=== PATIENT | male | born 1960 | race Caucasian/White ===

== ENCOUNTER → 2016-07-31 | Outpatient (CLI) | payer OTHER ==
[~2016-07-31] MED LIST: FISHOIL PO; INSUINJ14 SC; INSUINJ4 SQ; LIRA18IN SC; LISI-729 PO; METF500T PO; SIMV20TA2 PO
[2016-07-31 12:36] LABS: HEMATOCRIT 44.2 % (42-52)
[2016-07-31 13:01] LABS: ESTIMATED AVERAGE GLUCOSE 128 mg/dl; HA1C FLAG Normal (Normal)
[2016-07-31 13:37] LABS: ALT/SGPT 28 U/L (12-78); AST/SGOT 24 U/L (15-37); BLOOD UREA NITROGEN 11 mg/dl (7-18); BUN/CREATININE RATIO 11.9 (10-20); CARBON DIOXIDE 26 mmol/L (21-32); CHLORIDE 106 mmol/L (98-107); CHOLESTEROL 124 mg/dl (0-200); CREATININE 0.94 mg/dl (0.60-1.40); GLUCOSE 88 mg/dl (70-99); SODIUM 140 mmol/L (136-145)
[2016-07-31 13:47] LABS: ALB/GLOB RATIO 1.3 (0.9-2); ALKALINE PHOSPHATASE 69 U/L (45-117); CHOLESTEROL/HDL RATIO 3.6; HDL CHOLESTEROL 34 mg/dl; LDL CHOLESTEROL CALCULATED 70 mg/dl; PROSTATE SPECIFIC ANTIGEN 0.247 ng/ml (0.000-4.000); TRIGLYCERIDES 100 mg/dl (0-150); VERY LOW DENSITY LIPOPROT CALC 20 mg/dl
[2016-07-31 13:55] LABS: CALCIUM 9.5 mg/dl (8.5-10.1)
== END | disposition home or self-care (01) ==
LOC: C.LABBFT 08:24
PROVIDERS: ATTEND Nurse Practitioner
DX: E11.319 Type 2 diabetes mellitus with unspecified diabetic retinopathy without macular edema (principal); Z12.5 Encounter for screening for malignant neoplasm of prostate

== ENCOUNTER → 2017-01-31 | Outpatient (CLI) | payer OTHER ==
[2017-01-31 13:09] LABS: ALT/SGPT 25 U/L (12-78); AST/SGOT 17 U/L (15-37); BLOOD UREA NITROGEN 14 mg/dl (7-18); BUN/CREATININE RATIO 14.2 (10-20); CALCIUM 8.9 mg/dl (8.5-10.1); CARBON DIOXIDE 27 mmol/L (21-32); CHLORIDE 104 mmol/L (98-107); CHOLESTEROL 128 mg/dl (0-200); CREATININE 0.96 mg/dl (0.60-1.40); GLUCOSE 105 mg/dl (70-99); POTASSIUM 3.9 mmol/L (3.5-5.1); SODIUM 137 mmol/L (136-145); TRIGLYCERIDES 150 mg/dl (0-150); VERY LOW DENSITY LIPOPROT CALC 30 mg/dl
[2017-01-31 13:10] LABS: ESTIMATED AVERAGE GLUCOSE 157 mg/dl; HA1C FLAG Normal (Normal)
[2017-01-31 13:12] LABS: ALB/GLOB RATIO 1.2 (0.9-2); ALKALINE PHOSPHATASE 78 U/L (45-117); CHOLESTEROL/HDL RATIO 3.8; HDL CHOLESTEROL 34 mg/dl; LDL CHOLESTEROL CALCULATED 64 mg/dl
== END | disposition home or self-care (01) ==
LOC: C.LABBFT 07:41
PROVIDERS: ATTEND Nurse Practitioner
DX: E55.9 Vitamin D deficiency, unspecified (principal); E11.49 Type 2 diabetes mellitus with other diabetic neurological complication

== ENCOUNTER → 2017-08-07 | Outpatient (CLI) | payer OTHER ==
[2017-08-07 12:42] LABS: ALBUMIN 3.8 gm/dl (3.4-5.0); ALT/SGPT 27 U/L (12-78); BLOOD UREA NITROGEN 13 mg/dl (7-18); CARBON DIOXIDE 24 mmol/L (21-32); CHOLESTEROL 132 mg/dl (0-200); GLUCOSE 91 mg/dl (70-99); SODIUM 137 mmol/L (136-145)
[2017-08-07 12:44] LABS: HEMOGLOBIN A1C 7.5 % (4.5-5.6)
[2017-08-07 12:47] LABS: ALKALINE PHOSPHATASE 78 U/L (45-117); AST/SGOT 17 U/L (15-37); LDL CHOLESTEROL CALCULATED 75 mg/dl; TOTAL PROTEIN 7.3 gm/dl (6.4-8.2)
== END | disposition home or self-care (01) ==
LOC: C.LABBFT 07:32
PROVIDERS: ATTEND Nurse Practitioner
DX: E11.49 Type 2 diabetes mellitus with other diabetic neurological complication (principal); Z12.5 Encounter for screening for malignant neoplasm of prostate; E78.5 Hyperlipidemia, unspecified

== ENCOUNTER 2022-11-18 13:14 | Inpatient (IN) ==
--- NOTE | 2022-11-18 14:37 | Emergency Department Note ---
Impression & Plan Osteomyelitis, Gangrenous toe, Sepsis ED Provider Note NAME: YOLIS GALINDO AGE: 62 SEX: M ARRIVES VIA: Walk-In INFORMANT: Patient ED PROVIDER(S): Mj Josue MD CHIEF COMPLAINT: Diabetic toe ulcer, pain, discoloration and swelling. PLAN: Disposition: Admit MEDICAL DECISION MAKING: The patient is a 62-year-old gentleman with a past medical history of hy pertension, hyperlipidemia, uncontrolled type 2 diabetes on insulin, diabetic retinopathy, lumbar spinal stenosis, history of melanoma presents emergency department via walk-in accompanied by his for evaluation of discoloration of his left great toe which he describes turning "purple" today in the setting of having a chronically nonhealing wound/ulcer on the plantar aspect of his toe that has been present for a year or so but feels it only recently worsened this past week. He denies fevers, cough, congestion, GI or symptoms. Patient reports his blood sugars have been in the 150-170 range. Of note, the patient did arrive to emergency department during time of high volume, acuity and prolonged emergency department waiting times. Critical pathways initiated from triage. The patient is afebrile with HR in the 100s and VS otherwise stable. On my evaluation the patient has a cyanotic/dusky cool great toe with tunneling ulcer on the plantar aspect which cultured. There is erythema extending from the base of the great toe proximally to the midfoot on the medial aspect. There is no overt crepitus on exam. Dopplerable DP pulses present. I did explain the severity of the patient's exam to the patient and his at the bedside. Case was reviewed with podiatry, Dr. Ramirez who is able to review images sent of the patient's foot. He agrees with plan for admission for IV a ntibiotics and he will see the patient upon arriving to [facility]. If imaging suggests osteomyelitis likely will take to the OR. WBC 15.4K with neutrophil predominance though no left shift. H/H and platelets within normal limits. ESR is elevated 97 and CRP of 34. Chemistry without metabolic acidosis. Glucose 374. Total bilirubin 1.3, similar to prior. LFTs otherwise unremarkable. Procalcitonin is not elevated. Initial lactic acid 2.1 however clear to 1.2 following IV fluid hydration. Plain films of the left foot demonstrate soft tissue swelling with gas seen suspected to be related to adjacent wound/ulcer though possibility of necrotizing infection is raised. Erosion of the plantar aspect of the distal phalanx of the left first toe is consistent with osteomyelitis and better characterized on CT imaging. CT demonstrates osteonecrosis of the first proximal and distal phalanges with distal phalangeal osteomyelitis. The plantar ulcer of the great toe is noted with cellulitis and deep tissue air which again may be related to communication with the wound versus necrotizing infection. Acute nondisplaced pathologic fracture of the first distal phalanx is noted. Patient was treated with initial empiric IV antibiotics with Zosyn and daptomycin and IVF hydration with NSS. Case was discussed with OSMANY Valverde PAC, with Dr. Perez [facility] hospitalist who will evaluate the patient for admission. Further management per admitting team in coordination with podiatry, Dr. Ramirez. Triage Nursing notes reviewed and agree them. Prior/outside medical records reviewed Vital Signs: reviewed Differential diagnosis: Cellulitis, abscess, MRSA infection, DVT, necrotizing fasciitis, dermatitis, drug eruption, allergic reaction, as well as other pathologies. ER treatment provided: See below. Diagnostics interpreted by me: Cardiac Monitoring: An order for continuous cardiac monitoring was placed and demonstrated sinus tachycardia, 103 bpm, no ectopy. Laboratory studies: See below Imaging studies: See below Consultation(s): Dr. Ramirez, Podiatry. OSMANY Valverde PAC, with Dr. Perez [facility] hospitalist. HPI: The patient is a 62-year-old gentleman with a past medical history of hypertension, hyperlipidemia, uncontrolled type 2 diabetes on insulin, diabetic retinopathy, lumbar spinal stenosis, history of melanoma presents emergency department via walk-in accompanied by his for evaluation of discoloration of his left great toe which he describes turning "purple" today in the setting of having a chronically nonhealing wound/ulcer on the plantar aspect of his toe that has been present for a year or so but feels it only recently worsened this past week. He denies fevers, cough, congestion, GI or symptoms. Patient reports his blood sugars have been in the 150-170 range. ROS: See above HPI for pertinent positives & negatives. A total of 10 systems reviewed and were otherwise negative. VITALS:See Below PHYSICAL EXAMINATION: GENERAL: Awake, alert, in no distress HENT: Normocephalic, atraumatic. Oropharynx with dry mucous membranes and otherwise unremarkable. EYES: Normal conjunctiva. Sclera non-icteric. NECK: Supple. No nuchal rigidity. FROM. No JVD. RESPIRATORY: Clear to auscultation. CARDIAC: Tachycardic rate, normal rhythm. Extremities warm and well perfused. Pulses equal. ABDOMEN: Soft, non-distended. No tenderness to palpation. No rebound or guarding. No masses. RECTAL: Deferred. MUSCULOSKELETAL: Chest examination reveals no tenderness. The back is symmetrical on inspection without obvious abnormality. There is no CVA tenderness to palpation. No joint edema. LOWER EXTREMITIES: Cyanotic/dusky cool great toe with tunneling ulcer on the plantar aspect which cultured. There is erythema extending from the base of the great toe proximally to the midfoot on the medial aspect. There is no overt crepitus on exam. Dopplerable DP pulses present. NEURO: Normal sensorium. No sensory or motor deficits noted. SKIN: No rash or jaundice noted. ED COURSE: Critical Care: I have personally spent greater than 55 minutes of critical care time in the direct management of this patient. This includes bedside care, interpretation of diagnostic studies, and testing, discussion with consultants, patient, and family members, and other required patient management activities. This 55 minutes is in excess of all separately billable procedures. Mj Josue MD Past Med/Surg History Medical History History of melanoma Hyperlipidemia Hypertension Uncontrolled type 2 diabetes mellitus with insulin therapy Surgical History History of colonoscopy with polypectomy History of melanoma excision Hx of vasectomy Family History Father Diabetes Mother Coronary heart disease Sister Cancer Other No family history of adverse response to anesthesia No pertinent family history Denies family history of Ovarian cancer Prostate cancer Breast cancer Colorectal cancer Social History Smoking Status: Never smoker Second Hand Exposure: No; Do You Dip or Chew Tobacco: No; Hx Alcohol Use: No Hx Substance Use: No Preferred Language: Belgian Communication Ability: Effective Hearing Ability: Normal White Spooler Required: No Beliefs That Will Affect Care: None Current Living Situation: Spouse Current Living Situation Comment: X 2 current occupational status: employed Other Information That Helps Us Care for You: No Feels Safe at Home: Yes Safety Concerns: Feels Safe At This Time Childhood Exposure to Second-Hand Smoke: No Diet: regular caffeine: Yes during the past year weight has: remained stable Dental Care, Regularly: Yes Physical Activity Frequency: 5-6 Times per Week Seatbelt Use: always Sunscreen Use: Yes Assistive Devices: None Allergies Allergies Allergy/AdvReac Type Severity Reaction Status Date / Time No Known Allergies Allergy Mild Verified 11/18/22 16:28 Home Meds Home Medications Medication Instructions Recorded Confirmed cholecalciferol (vitamin D3) 50 4,000 unit PO HS 09/03/18 11/18/22 mcg (2,000 unit) capsule (Vitamin D3) cyanocobalamin (vitamin B-12) 2,000 mcg PO QAM 09/03/18 11/18/22 2,000 mcg tablet,extended release (Vitamin B-12 ER) krill 1,000 mg-omega-3 170 mg-dha 1 cap PO QAM 09/03/18 11/18/22 50 mg-epa 80 nw-deuoyb-pubse capsule (krill oil) blood sugar diagnostic (OneTouch #10 ea 05/24/19 04/11/21 Ultra Blue Test Strip) lancets (OneTouch UltraSoft #50 ea 05/24/19 04/11/21 Lancets) aspirin 81 mg tablet,delayed 81 mg PO QAM 12/08/20 11/18/22 release Previous Rx's Medication Instructions Recorded dulaglutide 1.5 mg/0.5 mL 1.5 mg (0.5 mL) subcut .COMPLEX 10/09/21 subcutaneous pen injector #12 syringes (Trulicity) insulin aspart U-100 100 unit/mL 20 unit (0.2 mL) subcut .COMPLEX 10/09/21 (3 mL) subcutaneous pen (Novolog #18 mL FlexPen U-100 Insulin aspart) insulin degludec 200 unit/mL (3 70 unit (0.35 mL) subcut HS #32 10/09/21 mL) subcutaneous pen (Tresiba SYRINGES FlexTouch U-200 insulin) metformin 500 mg tablet,extended 1,000 mg PO BID #360 tabs 06/21/22 release 24 hr pen needle, diabetic 32 gauge x #100 ea 10/09/21 5/32" (BD Ultra-Fine Clau Pen Needle) rosuvastatin 20 mg tablet 20 mg PO HS #90 tabs 10/09/21 Results & Data (ED) Vital Signs Vital Signs - 24 hr 11/18/22 13:22 11/18/22 14:50 11/18/22 14:52 Temperature 36.8 C Temperature Source Temporal Artery Scan Pulse Rate 103 H 101 H Pulse Rate [Apical] 107 H Pulse Rhythm [Apical] Pulse Strength [Apical] Respiratory Rate 18 20 Respiratory Effort / Characteristics Non-Labored Non-Labored Spontaneous Respiratory Depth Normal Normal Respiratory Pattern Regular Blood Pressure 159/89 H Blood Pressure [Left Arm] 204/102 H Blood Pressure Mean 112 Blood Pressure Mean [Left Arm] 136 Blood Pressure Position [Left Arm] Pulse Oximetry 98 97 Oxygen Delivery Method Room Air Room Air Sepsis Recent Fever Within 48 Hours No Sepsis New/Unexplained Change in Mental Status N/A Sepsis Action Taken by Nursing No Action Required 11/18/22 14:56 11/18/22 15:13 11/18/22 17:00 Temperature 36.8 C Temperature Source Oral Pulse Rate Pulse Rate [Apical] 111 H Pulse Rhythm [Apical] Regular Pulse Strength [Apical] Normal Respiratory Rate 18 Respiratory Effort / Characteristics Non-Labored Respiratory Depth Normal Respiratory Pattern Regular Blood Pressure Blood Pressure [Left Arm] 173/94 H Blood Pressure Mean Blood Pressure Mean [Left Arm] 120 Blood Pressure Position [Left Arm] Lying Pulse Oximetry 97 99 Oxygen Delivery Method Room Air Room Air Sepsis Recent Fever Within 48 Hours Sepsis New/Unexplained Change in Mental Status Sepsis Action Taken by Nursing 11/18/22 17:21 11/18/22 17:26 Temperature 36.9 C 38.2 C H Temperature Source Oral Pulse Rate Pulse Rate [Apical] 114 H Pulse Rhythm [Apical] Pulse Strength [Apical] Respiratory Rate 22 Respiratory Effort / Characteristics Non-Labored Spontaneous Respiratory Depth Normal Respiratory Pattern Regular Blood Pressure Blood Pressure [Left Arm] 159/98 H Blood Pressure Mean Blood Pressure Mean [Left Arm] 118 Blood Pressure Position [Left Arm] Semi-fowlers Pulse Oximetry 98 Oxygen Delivery Method Room Air Sepsis Recent Fever Within 48 Hours Sepsis New/Unexplained Change in Mental Status Sepsis Action Taken by Nursing Laboratory Data 11/18/22 14:40 11/18/22 14:40 Lab Results 0711/18/22 11/18/22 Range/Units 14:40 14:40 14:40 WBC 15.46 H (4.8-10.8) K/ul RBC 5.50 (4.70-6.10) M/uL Hgb 15.6 (14.0-18.0) g/dl Hct 45.9 (42.0-52.0) % MCV 83.5 (80.0-100.0) fL MCH 28.4 (25.0-34.0) pg MCHC 34.0 (32.0-36.0) g/dL RDW Std Deviation 35.7 L (36.4-46.3) fL RDW Coeff of Stephanie 11.8 (11.5-14.5) % Plt Count 313 (130-400) K/uL MPV 10.7 (9.4-12.4) fL Immature Gran % (Auto) 0.6 % Neut % (Auto) 86.1 % Lymph % (Auto) 6.7 % Greene % (Auto) 5.8 % Eos % (Auto) 0.3 % Baso % (Auto) 0.5 % Neut # (Auto) 13.32 H (1.40-6.50) K/uL Lymph # (Auto) 1.03 L (1.2-3.4) K/uL Greene # (Auto) 0.90 H (0.11-0.59) K/uL Eos # (Auto) 0.05 (0-0.50) K/uL Baso # (Auto) 0.07 (0-0.2) K/uL Immature Gran # (Auto) 0.09 (0.01-0.20) K/uL ESR (0-20) mm/hr PT 11.1 (9.0-12.0) Seconds INR 1.0 (0.9-1.1) APTT 30.5 (21.0-31.0) Seconds PTT Ratio 1.1 Sodium (136-145) mmol/L Potassium (3.5-5.1) mmol/L Chloride (98-107) mmol/L Carbon Dioxide (21-32) mmol/L Anion Gap (3-11) BUN (6-23) mg/dl Creatinine (0.6-1.4) mg/dl Est Cr Clr Drug Dosing ml/min Est GFR ( Amer) ml/min Est GFR (Non-Af Amer) ml/min BUN/Creatinine Ratio (10-20) Glucose (70-99(Fasting)) mg/dl POC Glucose (70-99) mg/dl Lactate 2.1 H* (0.4-2.0) mmol/L Calcium (8.6-10.3) mg/dl Magnesium (1.7-2.4) mg/dl Total Bilirubin (0.2-1.0) mg/dl AST (13-39) U/L ALT (7-52) U/L Alkaline Phosphatase (34-104) U/L Total Creatine Kinase (30-223) U/L C-Reactive Protein (0-0.5) mg/dl Total Protein (6.0-8.3) gm/dl Albumin (3.4-5.0) gm/dl Globulin (2.5-4.0) gm/dl Albumin/Globulin Ratio (0.9-2) Procalcitonin (0-0.5) ng/ml Urine Color Urine Appearance (Clear) Urine pH (4.5-7.5) Ur Specific [place] (1.000-1.030) Urine Protein (Negative) Urine Glucose (UA) (Negative) Urine Ketones (Negative) Urine Blood (Negative) Urine Nitrite (Negative) Urine Bilirubin (Negative) Urine Urobilinogen (Negative) Ur Leukocyte Esterase (Negative) 11/18/22 11/18/22 11/18/22 Range/Units 14:40 14:40 14:40 WBC (4.8-10.8) K/ul RBC (4.70-6.10) M/uL Hgb (14.0-18.0) g/dl Hct (42.0-52.0) % MCV (80.0-100.0) fL MCH (25.0-34.0) pg MCHC (32.0-36.0) g/dL RDW Std Deviation (36.4-46.3) fL RDW Coeff of Stephanie (11.5-14.5) % Plt Count (130-400) K/uL MPV (9.4-12.4) fL Immature Gran % (Auto) % Neut % (Auto) % Lymph % (Auto) % Greene % (Auto) % Eos % (Auto) % Baso % (Auto) % Neut # (Auto) (1.40-6.50) K/uL Lymph # (Auto) (1.2-3.4) K/uL Greene # (Auto) (0.11-0.59) K/uL Eos # (Auto) (0-0.50) K/uL Baso # (Auto) (0-0.2) K/uL Immature Gran # (Auto) (0.01-0.20) K/uL ESR 97 H (0-20) mm/hr PT (9.0-12.0) Seconds INR (0.9-1.1) APTT (21.0-31.0) Seconds PTT Ratio Sodium 131 L (136-145) mmol/L Potassium 4.1 (3.5-5.1) mmol/L Chloride 94 L (98-107) mmol/L Carbon Dioxide 27 (21-32) mmol/L Anion Gap 10 (3-11) BUN 13 (6-23) mg/dl Creatinine 0.66 (0.6-1.4) mg/dl Est Cr Clr Drug Dosing 122.0 ml/min Est GFR ( Amer) 119.3 ml/min Est GFR (Non-Af Amer) 102.9 ml/min BUN/Creatinine Ratio 19.7 (10-20) Glucose 374 H* (70-99(Fasting)) mg/dl POC Glucose (70-99) mg/dl Lactate (0.4-2.0) mmol/L Calcium 9.9 (8.6-10.3) mg/dl Magnesium 2.1 (1.7-2.4) mg/dl Total Bilirubin 1.3 H (0.2-1.0) mg/dl AST 12 L (13-39) U/L ALT 12 (7-52) U/L Alkaline Phosphatase 124 H (34-104) U/L Total Creatine Kinase 195 (30-223) U/L C-Reactive Protein 34.37 H (0-0.5) mg/dl Total Protein 8.3 (6.0-8.3) gm/dl Albumin 4.2 (3.4-5.0) gm/dl Globulin 4.1 H (2.5-4.0) gm/dl Albumin/Globulin Ratio 1.0 (0.9-2) Procalcitonin 0.48 (0-0.5) ng/ml Urine Color Urine Appearance (Clear) Urine pH (4.5-7.5) Ur Specific [place] (1.000-1.030) Urine Protein (Negative) Urine Glucose (UA) (Negative) Urine Ketones (Negative) Urine Blood (Negative) Urine Nitrite (Negative) Urine Bilirubin (Negative) Urine Urobilinogen (Negative) Ur Leukocyte Esterase (Negative) 11/18/22 11/18/22 11/18/22 Range/Units 14:55 16:31 17:02 WBC (4.8-10.8) K/ul RBC (4.70-6.10) M/uL Hgb (14.0-18.0) g/dl Hct (42.0-52.0) % MCV (80.0-100.0) fL MCH (25.0-34.0) pg MCHC (32.0-36.0) g/dL RDW Std Deviation (36.4-46.3) fL RDW Coeff of Stephanie (11.5-14.5) % Plt Count (130-400) K/uL MPV (9.4-12.4) fL Immature Gran % (Auto) % Neut % (Auto) % Lymph % (Auto) % Greene % (Auto) % Eos % (Auto) % Baso % (Auto) % Neut # (Auto) (1.40-6.50) K/uL Lymph # (Auto) (1.2-3.4) K/uL Greene # (Auto) (0.11-0.59) K/uL Eos # (Auto) (0-0.50) K/uL Baso # (Auto) (0-0.2) K/uL Immature Gran # (Auto) (0.01-0.20) K/uL ESR (0-20) mm/hr PT (9.0-12.0) Seconds INR (0.9-1.1) APTT (21.0-31.0) Seconds PTT Ratio Sodium (136-145) mmol/L Potassium (3.5-5.1) mmol/L Chloride (98-107) mmol/L Carbon Dioxide (21-32) mmol/L Anion Gap (3-11) BUN (6-23) mg/dl Creatinine (0.6-1.4) mg/dl Est Cr Clr Drug Dosing ml/min Est GFR ( Amer) ml/min Est GFR (Non-Af Amer) ml/min BUN/Creatinine Ratio (10-20) Glucose (70-99(Fasting)) mg/dl POC Glucose 318 H* (70-99) mg/dl Lactate 1.2 (0.4-2.0) mmol/L Calcium (8.6-10.3) mg/dl Magnesium (1.7-2.4) mg/dl Total Bilirubin (0.2-1.0) mg/dl AST (13-39) U/L ALT (7-52) U/L Alkaline Phosphatase (34-104) U/L Total Creatine Kinase (30-223) U/L C-Reactive Protein (0-0.5) mg/dl Total Protein (6.0-8.3) gm/dl Albumin (3.4-5.0) gm/dl Globulin (2.5-4.0) gm/dl Albumin/Globulin Ratio (0.9-2) Procalcitonin (0-0.5) ng/ml Urine Color Yellow Urine Appearance Clear (Clear) Urine pH 6.0 (4.5-7.5) Ur Specific [place] 1.044 H (1.000-1.030) Urine Protein Negative (Negative) Urine Glucose (UA) 3+ H (Negative) Urine Ketones Trace H (Negative) Urine Blood Negative (Negative) Urine Nitrite Negative (Negative) Urine Bilirubin Negative (Negative) Urine Urobilinogen Negative (Negative) Ur Leukocyte Esterase Negative (Negative) Administered Medications Aspirin (Aspirin 81 Mg Ectab) 81 mg PO HS AUDIE Stop: 12/18/22 20:59 Last Admin: 11/18/22 21:06 Dose: 81 mg Documented By: MANJIT Daptomycin 450 mg/ Syringe 9 mls @ 4.5 mls/min IV Q24H [facility]; Protocol Stop: 11/20/22 15:14 Last Admin: 11/18/22 15:52 Dose: 4.5 mls/min Documented By: AP Piperacillin Sod/Tazobactam (Sod 4.5 gm/ Dextrose) 120 mls @ 30 mls/hr IV Q8H [facility]; Protocol Stop: 12/30/22 19:59 Last Infusion: 11/19/22 00:19 Dose: 0 mls/hr Documented By: Admin: 11/18/22 20:03 Dose: 30 mls/hr Documented By: MANJIT Sodium Chloride (Nss 1000ml) 1,000 mls @ 100 mls/hr IV .Q10H AUDIE Stop: 11/19/22 15:24 Last Admin: 11/18/22 19:45 Dose: 100 mls/hr Documented By: MANJIT Insulin Aspart (Insulin Aspart Per Unit Charge) 0 units SC Q4H AUDIE Stop: 12/18/22 19:59 Last Admin: 11/19/22 01:39 Dose: Not Given Documented By: MANJIT Co-signed By: MARGARITA Admin: 11/18/22 21:04 Dose: 13 units Documented By: MANJIT Co-signed By: MARGARITA Insulin Glargine (Lantus Per Unit Charge) 30 units SQ BID [facility] Stop: 12/18/22 20:59 Last Admin: 11/18/22 21:05 Dose: 30 units Documented By: MANJIT Co-signed By: MARGARITA Discontinued Medications Bupivacaine HCl (Bupivacaine 0.5 % 5 Mg/1 Ml Mpf 30ml Vial) Confirm Administered Dose 30 ml .ROUTE .STK-MED ONE Stop: 11/18/22 17:42 Last Admin: 11/18/22 18:45 Dose: 10 ml Documented By: [id number] Sodium Chloride (Nss 1000ml) 1,000 mls @ 999 mls/hr IV .Q1H1M ONE Stop: 11/18/22 16:15 Last Infusion: 11/18/22 16:56 Dose: 0 mls/hr Documented By: Admin: 11/18/22 15:52 Dose: 999 mls/hr Documented By: SUSAN Piperacillin Sod/Tazobactam (Sod 4.5 gm/ Dextrose) 120 mls @ 200 mls/hr IV NOW ONE; Protocol Stop: 11/18/22 15:50 Last Infusion: 11/18/22 16:36 Dose: 0 mls/hr Documented By: Admin: 11/18/22 15:52 Dose: 200 mls/hr Documented By: SUSAN Insulin Aspart (Insulin Aspart Per Unit Charge) 0 units SC ACHS AUDIE Stop: 12/18/22 19:24 Last Admin: 11/18/22 21:05 Dose: Not Given Documented By: MANJIT Co-signed By: MARGARITA Insulin Human Regular (Novolin-R Insulin Per Unit Charge) 10 units IV NOW STA Stop: 11/18/22 16:04 Last Admin: 11/18/22 16:53 Dose: 10 units Documented By: SUSAN Co-signed By: JOSR Ioversol (Optiray 320 100ml) 92 ml IV ONCE ONE Stop: 11/18/22 15:43 Last Admin: 11/18/22 15:43 Dose: 92 ml Documented By: FIDELIA Imaging Data Radiologist's Impression: Foot X-Ray 11/18/22 13:27 XR foot LT min 3V routine CLINICAL HISTORY: Left foot infection. COMPARISON: None FINDINGS: Alignment of the left foot is anatomic. Tarsometatarsal joints are intact. There is left first toe soft tissue swelling. Note is made of multifocal soft tissue gas within the left first toe which extends to the level of the midshaft of the first metatarsal. There is equivocal erosion of the plantar aspect of the distal phalanx of the left first toe. Lateral view demonstrates a skin defect consistent with wound along the plantar aspect of the interphalangeal joint of the left first toe. There are no acute fracture. IMPRESSION: 1. Left first toe wound with soft tissue swelling. Although the gas may be related to the wound, the findings raise the possibility of a gas-forming infectious process such as necrotizing fasciitis. 2. Possible erosion of the plantar aspect of the distal phalanx of the left first toe which raises the possibility of osteomyelitis. This can be assessed on CT which has been ordered. ACT 112: Negative or not required by law. Electronically signed by: Heron Phoenix M.D. 11/18/2022 3:[address] 11/18/22 15:15 CT foot LT w con HISTORY: 62 years-old Male gangrenous left great toe, DM ulcer chronic left foot pain with diabetic foot ulcer COMPARISON: Frontal radiographs of same day TECHNIQUE: Multiple axial CT images of the left foot were obtained following the intravenous administration of contrast. A dose lowering technique was used consistent with the principals of ARMANDO. FINDINGS: Air is present within the medullary space of the first distal phalanx and head of the first proximal phalanx. There is a acute pathologic intra-articular fracturing within the base of the first distal phalanx with subtle plantar cor tical erosions (best seen on the sagittal images). Moderate subcutaneous edema with deep tissue air of the first digit. 1.6 cm plantar ulcer of the great toe. Mild osteoarthritis. Midfoot alignment is anatomic. No additional acute fracture, dislocation or osseous erosion identified. Subcentimeter chronic appearing osteochondral defect of the medial talar dome. No drainable abscess. Arterial calcifications. [id number] diffuse subcutaneous edema. IMPRESSION: 1. Osteonecrosis of the first proximal and distal phalanges with distal phalangeal osteomyelitis. 2. Plantar ulcer of the great toe with cellulitis. Associated deep tissue air may be secondary to direct communication from the wound versus necrotizing fasciitis. 3. Acute nondisplaced pathologic fracture of the first distal phalanx. ACT 112: Negative or not required by law. The above report was generated using voice recognition software. It may contain grammatical, syntax or spelling errors. Electronically signed by: Ángel Payne M.D. 11/18/2022 4:07 PM Venous Doppler Study 11/18/22 15:50 Exam(s): US VENOUS LEFT LOWER EXTREMITY EXAM: US Duplex Left Lower Extremity Veins CLINICAL HISTORY: Reason for exam: r/o dvt, +calf pain. TECHNIQUE: Real-time duplex ultrasound scan of the left lower extremity veins integrating B-mode two-dimensional vascular structure, Doppler spectral analysis, color flow Doppler imaging and compression. COMPARISON: No relevant prior studies available. FINDINGS: Veins: No DVT in the visualized veins, including the common femoral, superficial femoral, proximal deep femoral and popliteal veins. The veins demonstrate normal color flow, are normally compressible, with normal phasic flow and/or augmentation response. Soft tissues: No popliteal cyst. Left inguinal lymph node, 3.9 X 1.6 X 3.5 cm, not pathologically enlarged by size criteria, and maintains a normal fatty hilum. May be reactive. IMPRESSION: 1. No DVT. 2. Left inguinal lymph node, nonspecific, likely reactive. Electronically signed by: Pema Ferrell M.D. 11/19/22 02:11 AM Duplex Scan Lower Extremity Artery 11/18/22 16:21 Exam(s): US ARTERIAL LEFT LOWER EXTREMITY EXAM: US Duplex Left Lower Extremity Arteries CLINICAL HISTORY: Reason for exam: acute gangrenous toe, concerns thrombus. TECHNIQUE: Real-time duplex ultrasound scan of the left lower extremity arteries integrating B-mode two-dimensional vascular structure, Doppler spectral analysis and color flow Doppler imaging. COMPARISON: No relevant prior studies available. FINDINGS: Left common femoral artery: Mild atherosclerosis, with possible ulcerative plaque. No occlusion or significant stenosis on color flow and spectral Doppler imaging. Left superficial femoral artery: No stenosis or occlusion. Left popliteal artery: Elevated velocity, 205 cm/s. Left calf/foot arteries: Intermittent occluded anterior tibial artery, with short segment flow reversal. Low velocity distally 23 cm/s. Elevated velocities distal posterior tibial artery 172 cm/s. Monophasic waveforms. Patent dorsalis pedis artery. Soft tissues: Unremarkable. IMPRESSION: 1. Abnormal exam with intermittent occluded RILEY. 2. Elevated velocities popliteal artery and [employer]. 3. 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 4. Consider CTA runoff as indicated for further evaluation. Electronically signed by: Pema Ferrell M.D. 11/19/22 02:04 AM Chest X-Ray 11/18/22 16:28 SINGLE VIEW CHEST CLINICAL HISTORY: Preoperative examination FINDINGS: An AP, portable, upright chest radiograph is compared to study dated 09/03/2018. Correlation is made with chest CT dated 10/17/2021. The cardiomediastinal silhouette is top normal for projection. The pulmonary vasculature is noncongested. Chronic interstitial thickening is similar to previous. There is mild bibasilar scarring/atelectasis. The lungs and pleural spaces are otherwise clear. No pneumothorax is seen. The skeletal structures appear osteopenic. The bony thorax is grossly intact. IMPRESSION: No active disease in the chest. ACT 112: Negative or not required by law. Electronically signed by: Nura Rothman M.D. 11/18/2022 6:33 PM Discharge Plan Visit Data Chief Complaint: Toe Injury/Pain Stated Complaint: L FOOT BIG TOE IS PURPLE ED Provider: Mj Josue Discharge Problem: Osteomyelitis, Gangrenous toe, Sepsis Patient Disposition: Admitted As Inpatient Discharge Instructions Interventions: ED Discharge Assessment Last Done: 11/18/22 17:21
[2022-11-18 15:04] LABS: Basophils # (auto) 0.07 K/uL (0-0.2); Basophils % (auto) 0.5 %; Eosinophils # (auto) 0.05 K/uL (0-0.50); Eosinophils % (auto) 0.3 %; Hematocrit (blood only) 45.9 % (42.0-52.0); Hemoglobin 15.6 g/dl (14.0-18.0); Immature Granulocytes # (auto) 0.09 K/uL (0.01-0.20); Immature Granulocytes % (auto) 0.6 %; Lymphocytes # (auto) 1.03 K/uL (1.2-3.4); Lymphocytes % (auto) 6.7 %; Mean Corpuscular Hemoglobin 28.4 pg (25.0-34.0); Mean Corpuscular Volume 83.5 fL (80.0-100.0); Mean Platelet Volume 10.7 fL (9.4-12.4); Monocytes % (auto) 5.8 %; Neutrophils # (auto) 13.32 K/uL (1.40-6.50); Neutrophils % (auto) 86.1 %; Platelet Count 313 K/uL (130-400); RDW Coefficient of Variation 11.8 % (11.5-14.5); RDW Standard Deviation 35.7 fL (36.4-46.3); White Blood Count 15.46 K/ul (4.8-10.8)
[2022-11-18] MEDS ORDERED: SODIUM CHLORIDE 0.9% 1000ML 1,000 ML IV ONE (15:15)
[2022-11-18] MEDS ORDERED: PIPERACILLIN/TAZOBACTAM 4.5 GM in DEXTROSE 5% 100 ML IV ONE (15:15)
[2022-11-18 15:30] LABS: Partial Thromboplastin Ratio 1.1; Partial Thromboplastin Time 30.5 Seconds (21.0-31.0); Prothrombin Time 11.1 Seconds (9.0-12.0)
--- NOTE | 2022-11-18 15:36 | XRay Report ---
XR foot LT min 3V routine CLINICAL HISTORY: Left foot infection. COMPARISON: None FINDINGS: Alignment of the left foot is anatomic. Tarsometatarsal joints are intact. There is left f irst toe soft tissue swelling. Note is made of multifocal soft tissue gas within the left first toe w hich extends to the level of the midshaft of the first metatarsal. There is equivocal erosion of the plantar aspect of the distal phalanx of the left first toe. Lateral view demonstrates a skin defect c onsistent with wound along the plantar aspect of the interphalangeal joint of the left first toe. The re are no acute fracture. IMPRESSION: 1. Left first toe wound with soft tissue swelling. Although the gas may be related to the wound, the findings raise the possibility of a gas-forming infectious process such as necrotizing fasciitis. 2. Possible erosion of the plantar aspect of the distal phalanx of the left first toe which raises th e possibility of osteomyelitis. This can be assessed on CT which has been ordered. ACT 112: Negative or not required by law. Electronically signed by: Heron Phoenix M.D. 11/18/2022 3:35 PM
[2022-11-18] MEDS ORDERED: OPTIRAY 320 100ml IV ONE (15:42)
--- NOTE | 2022-11-18 15:42 | History & Physical Report ---
Date of Service November 18, 2022 Assessment & Plan (1) Gangrenous toe: Plan: concerns for osteo given xray/exam w/ gangrenous LEFT first toe. WBC 15.4k, BSG 374, lactic 2.1, procal 0.48 Admit med/tele Podiatry consulted CT ordered for further eval but suspect osteo/significant elevation in CRP/ESR to 34.37 and 97 respectively * 1. Osteonecrosis of the first proximal and distal phalanges with distal phalangeal osteomyelitis. * 2. Plantar ulcer of the great toe with cellulitis. Associated deep tissue air may be secondary to direct communication from the wound versus necrotizing fasciitis. * Acute nondisplaced pathologic fracture of the first distal phalanx. Blood cultures pending Zosyn/Dapto in ER -- will continue such for coverage DM foot ulcer in uncontrolled diabetic IVF ordered Pain control/antiemetics Will keep NPO in case of surgery for today US arterial study STAT given acute nature/pain concerning for acute thrombus Also will obtain US Doppler to r/o DVT given +calf pain, but -->Deferring chemoprophylaxis until dopplers resulted Check CXR/EKG in anticipation of surgery tonight (?vs tomorrow). No CP/SOB or known hx CAD Monitor labs on repeat (2) Sepsis: Plan: Leukocytosis, tachycardia (sinus tachy on monitor) on admission with elevated lactic acid suspected due to acute gangrenous toe/osteomyelitis blood cultures/IV abx as outlined above, podiatry consulted also concerns for acute thrombosis given acute reporting of discoloration/pain and stat arterial doppler ordered as above for further eval. DVT proph pending results of study (3) Osteomyelitis: Plan: imaging supporting diagnosis, elevation in inflammatory markers. podiatry consulted as above, likely need for amputation. timing of amputation TBD by podiatry once evaluated this evening (4) Uncontrolled type 2 diabetes mellitus with insulin therapy: Plan: prior a1c 11s--> 9s, however suspect higher given BSG 374 on admission and no follow up recently Ordered regular insulin 10IV x 1 now, glargine 30u BID w/ tight sliding scale and can adjust as needed A1c pending w/ repeat labs Pharmacy consulted as well for glycemic assistance and will also consult DM educator pending repeat A1c Monitor BSGs on repeat DM diet when able to eat (5) Hypertension: Plan: significant elevation in ER but asymptomatic, IVF ordered and will reassess w/ pain control as well Added hydralazine prn as well Monitor (6) Hyperlipidemia: Plan: holding crestor on Dapto, check CK lipid panel in AM, dosing crestor eventually pending imaging/repeat lipid panel (7) Esophageal reflux: Plan: not on medication, not reporting any issues at present Elevated LFTs --> likely acute phase, no abdominal pain. Will monitor on repeat Plan DVT proph: TBD pending arterial study PT/OT consults to be placed following podiatry eval History of Present Illness Chief Complaint: gangrenous toe Primary Care Provider: LM Lopez 62yo male with PMHx significant for uncontrolled DM (prior A1c 11.8--> 9.2 but over year since seen, A1c pending), HTN, HLD, reflux, melanoma presented with acute gangrenous LEFT great toe/diabetic ulceration to plantar aspect of foot ongoing for about a year. No reported fever/chills at home. Admission for IV abx/cultures and management, need for amputation. Evaluation with at bedside, just returning from CT scan of his leg for eval osteo. They report being at [facility] last year and not realizing how hot the sand was but took their shoes off and reports patient got instant blister that has not healed since that time. Reports there has been no drainage. Sensation to light touch intact to bottom of feet despite his uncontrolled diabetes. He reports not having much in the way of pain until he got up here to the hospital and wasn't having any of the redness currently on exam. Denies any recent trauma that he is aware of. Denied having any fevers at home but does have some chills at present/requesting warm blankets. He does have gangrenous 1st toe on the left on exam with lymphangitic streaking up to mid foot. Attempted to get pulse with doppler on the left, easily palpated on the right LE. Patient/ report RN was able to obtain after much searching previously. Discussed obtaining arterial study to ensure good blood flow but acute /possible need for intervention. He also has some calf pain on exam and discussed checking US doppler to ensure no DVT. Will plan to keep NPO until eval by Dr Ramirez this evening incase of surgery tonight. FULL CODE as discussed. ER Course: WBC elevation w/ neutrophil predominance on admission. Chemistries pending -- ER added CRP, ESR. Procal 0.48 Given Zosyn/Dapto by ER provider and images sent to podiatry, Dr Ramirez and will be evaluating this evening after CT imaging for consideration amputation. Xray imaging w/ Left first toe wound with soft tissue swelling. Although the gas may be related to the wound, the findings raise the possibility of a gas-forming infectious process such as necrotizing fasciitis. Possible erosion of the plantar aspect of the distal phalanx of the left first toe which raises the possibility of osteomyelitis. CT has been ordered for further evaluation. Blood cultures pending, CRP, ESR Lactic 2.1--> repeat to be collected after IVF. Allergies Allergy/AdvReac Type Severity Reaction Status Date / Time No Known Allergies Allergy Mild Verified 11/18/22 16:28 Home Medications Medication Instructions Recorded Confirmed Type cholecalciferol (vitamin D3) 50 4,000 unit PO HS 09/03/18 11/18/22 History mcg (2,000 unit) capsule (Vitamin D3) cyanocobalamin (vitamin B-12) 2,000 mcg PO QAM 09/03/18 11/18/22 History 2,000 mcg tablet,extended release (Vitamin B-12 ER) krill 1,000 mg-omega-3 170 mg-dha 1 cap PO QAM 09/03/18 11/18/22 History 50 mg-epa 80 [id number]-[id number] capsule (krill oil) blood sugar diagnostic (OneTouch #10 ea 05/24/19 04/11/21 History Ultra Blue Test Strip) lancets (OneTouch UltraSoft #50 ea 05/24/19 04/11/21 History Lancets) aspirin 81 mg tablet,delayed 81 mg PO QAM 12/08/20 11/18/22 History release dulaglutide 1.5 mg/0.5 mL 1.5 mg (0.5 mL) subcut .COMPLEX 10/09/21 11/18/22 Rx subcutaneous pen injector #12 syringes (Trulicity) insulin aspart U-100 100 unit/mL 20 unit (0.2 mL) subcut .COMPLEX 10/09/21 11/18/22 Rx (3 mL) subcutaneous pen (Novolog #18 mL FlexPen U-100 Insulin aspart) insulin degludec 200 unit/mL (3 70 unit (0.35 mL) subcut HS #32 10/09/21 11/18/22 Rx mL) subcutaneous pen (Tresiba SYRINGES FlexTouch U-200 insulin) metformin 500 mg tablet,extended 1,000 mg PO BID #360 tabs 10/09/21 11/18/22 Rx release 24 hr pen needle, diabetic 32 gauge x #100 ea 10/09/21 10/09/21 Rx 32" (BD Ultra-Fine Clau Pen Needle) rosuvastatin 20 mg tablet 20 mg PO HS #90 tabs 10/09/21 11/18/22 Rx Past Med/Surg History Medical History History of melanoma Hyperlipidemia Hypertension Uncontrolled type 2 diabetes mellitus with insulin therapy Surgical History History of colonoscopy with polypectomy History of melanoma excision Hx of vasectomy Family History Father Diabetes Mother Coronary heart disease Sister Cancer Other No family history of adverse response to anesthesia No pertinent family history Denies family history of Ovarian cancer Prostate cancer Breast cancer Colorectal cancer Social History Smoking Status: Never smoker Second Hand Exposure: No; Do You Dip or Chew Tobacco: No; Hx Alcohol Use: No Hx Substance Use: No Preferred Language: Bermudian Communication Ability: Effective Hearing Ability: Normal Assistant 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: No Beliefs That Will Affect Care: None Current Living Situation: Spouse Current Living Situation Comment: X 2 current occupational status: employed Other Information That Helps Us Care for You: No Feels Safe at Home: Yes Safety Concerns: Feels Safe At This Time Childhood Exposure to Second-Hand Smoke: No Diet: regular caffeine: Yes during the past year weight has: remained stable Dental Care, Regularly: Yes Physical Activity Frequency: 5-6 Times per Week Seatbelt Use: always Sunscreen Use: Yes Assistive Devices: None Review of Systems Review of Systems: All systems reviewed & are unremarkable except as noted in HPI & below Physical Exam Physical Exam: General: chronically ill appearing male sitting up in bed, requesting warm blankets, NAD getting back to bed but minimally uncomfortable appearing walking from wheelchair to be witnessed HEENT: head normocephalic, atraumatic, poor dentition, mm slightly dry, trachea midline Resp: cta, no w/c/r, on room air CV: slightly tachycardic, regular rhythm, no significant m/r/g, +edema on the LLE, +calf tenderness on the LLE, +abnormal pulses on the left, wnl on the RIGHT, obtained w/ doppler) GI: +BS, soft/NT : no haro Psych: alert/oriented to person/place/time, cooperative with examination Neuro/MSK/Skin: no focal deficits/no slurred speech, CN intact grossly, following commands, strength equal throughout left leg w/ increased edema compared to the right, +calf tenderness gangrenous appearance to the toe with surrounding erythema with lymphangitic streaking to mid foot on the left ~1.5 ulceration to plantar aspect LEFT HALLUX, no active drainage, sensation to touch intact, able to wiggle toes Results & Data Results & Data Vital Signs (Past 12 Hours) Vital Signs Temp Pulse Pulse Resp BP BP Pulse Ox 11/18/22 15:13 36.8 C 11/18/22 14:56 97 11/18/22 14:52 107 H 20 204/102 H 97 11/18/22 14:50 101 H 11/18/22 13:22 36.8 C 103 H 18 159/89 H 98 O2 Del Method 11/18/22 15:13 11/18/22 14:56 Room Air 11/18/22 14:52 Room Air 11/18/22 14:50 11/18/22 13:22 Room Air Laboratory Results 11/18/22 11/18/22 11/18/22 Range/Units 14:55 14:40 14:40 WBC (4.8-10.8) K/ul RBC (4.70-6.10) M/uL Hgb (14.0-18.0) g/dl Hct (42.0-52.0) % MCV (80.0-100.0) fL MCH (25.0-34.0) pg MCHC (32.0-36.0) g/dL RDW Std Deviation (36.4-46.3) fL RDW Coeff of Stephanie (11.5-14.5) % Plt Count (130-400) K/uL MPV (9.4-12.4) fL Immature Gran % (Auto) % Neut % (Auto) % Lymph % (Auto) % [place] % (Auto) % Eos % (Auto) % Baso % (Auto) % Neut # (Auto) (1.40-6.50) K/uL Lymph # (Auto) (1.2-3.4) K/uL [place] # (Auto) (0.11-0.59) K/uL Eos # (Auto) (0-0.50) K/uL Baso # (Auto) (0-0.2) K/uL Immature Gran # (Auto) (0.01-0.20) K/uL ESR 97 H (0-20) mm/hr PT (9.0-12.0) Seconds INR (0.9-1.1) APTT (21.0-31.0) Seconds PTT Ratio Sodium (136-145) mmol/L Potassium (3.5-5.1) mmol/L Chloride (98-107) mmol/L Carbon Dioxide (21-32) mmol/L Anion Gap (3-11) BUN (6-23) mg/dl Creatinine (0.6-1.4) mg/dl Est Cr Clr Drug Dosing ml/min Est GFR ( Amer) ml/min Est GFR (Non-Af Amer) ml/min BUN/Creatinine Ratio (10-20) Glucose (70-99(Fasting)) mg/dl Estimat Average Glucose Pending Hemoglobin A1c Pending Lactate (0.4-2.0) mmol/L Calcium (8.6-10.3) mg/dl Magnesium (1.7-2.4) mg/dl Total Bilirubin (0.2-1.0) mg/dl AST (13-39) U/L ALT (7-52) U/L Alkaline Phosphatase (34-104) U/L C-Reactive Protein Total Protein (6.0-8.3) gm/dl Albumin (3.4-5.0) gm/dl Globulin (2.5-4.0) gm/dl Albumin/Globulin Ratio (0.9-2) Procalcitonin (0-0.5) ng/ml Urine Color Yellow Urine Appearance Clear (Clear) Urine pH 6.0 (4.5-7.5) Ur Specific [place] 1.044 H (1.000-1.030) Urine Protein Negative (Negative) Urine Glucose (UA) 3+ H (Negative) Urine Ketones Trace H (Negative) Urine Blood Negative (Negative) Urine Nitrite Negative (Negative) Urine Bilirubin Negative (Negative) Urine Urobilinogen Negative (Negative) Ur Leukocyte Esterase Negative (Negative) 11/18/22 11/18/22 11/18/22 Range/Units 14:40 14:40 14:40 WBC (4.8-10.8) K/ul RBC (4.70-6.10) M/uL Hgb (14.0-18.0) g/dl Hct (42.0-52.0) % MCV (80.0-100.0) fL MCH (25.0-34.0) pg MCHC (32.0-36.0) g/dL RDW Std Deviation (36.4-46.3) fL RDW Coeff of Stephanie (11.5-14.5) % Plt Count (130-400) K/uL MPV (9.4-12.4) fL Immature Gran % (Auto) % Neut % (Auto) % Lymph % (Auto) % [place] % (Auto) % Eos % (Auto) % Baso % (Auto) % Neut # (Auto) (1.40-6.50) K/uL Lymph # (Auto) (1.2-3.4) K/uL [place] # (Auto) (0.11-0.59) K/uL Eos # (Auto) (0-0.50) K/uL Baso # (Auto) (0-0.2) K/uL Immature Gran # (Auto) (0.01-0.20) K/uL ESR (0-20) mm/hr PT 11.1 (9.0-12.0) Seconds INR 1.0 (0.9-1.1) APTT 30.5 (21.0-31.0) Seconds PTT Ratio 1.1 Sodium 131 L (136-145) mmol/L Potassium 4.1 (3.5-5.1) mmol/L Chloride 94 L (98-107) mmol/L Carbon Dioxide 27 (21-32) mmol/L Anion Gap 10 (3-11) BUN 13 (6-23) mg/dl Creatinine 0.66 (0.6-1.4) mg/dl Est Cr Clr Drug Dosing 122.0 ml/min Est GFR ( Amer) 119.3 ml/min Est GFR (Non-Af Amer) 102.9 ml/min BUN/Creatinine Ratio 19.7 (10-20) Glucose 374 H* (70-99(Fasting)) mg/dl Estimat Average Glucose Hemoglobin A1c Lactate (0.4-2.0) mmol/L Calcium 9.9 (8.6-10.3) mg/dl Magnesium 2.1 (1.7-2.4) mg/dl Total Bilirubin 1.3 H (0.2-1.0) mg/dl AST 12 L (13-39) U/L ALT 12 (7-52) U/L Alkaline Phosphatase 124 H (34-104) U/L C-Reactive Protein Pending Total Protein 8.3 (6.0-8.3) gm/dl Albumin 4.2 (3.4-5.0) gm/dl Globulin 4.1 H (2.5-4.0) gm/dl Albumin/Globulin Ratio 1.0 (0.9-2) Procalcitonin 0.48 (0-0.5) ng/ml Urine Color Urine Appearance (Clear) Urine pH (4.5-7.5) Ur Specific [place] (1.000-1.030) Urine Protein (Negative) Urine Glucose (UA) (Negative) Urine Ketones (Negative) Urine Blood (Negative) Urine Nitrite (Negative) Urine Bilirubin (Negative) Urine Urobilinogen (Negative) Ur Leukocyte Esterase (Negative) 11/18/22 11/18/22 Range/Units 14:40 14:40 WBC 15.46 H (4.8-10.8) K/ul RBC 5.50 (4.70-6.10) M/uL Hgb 15.6 (14.0-18.0) g/dl Hct 45.9 (42.0-52.0) % MCV 83.5 (80.0-100.0) fL MCH 28.4 (25.0-34.0) pg MCHC 34.0 (32.0-36.0) g/dL RDW Std Deviation 35.7 L (36.4-46.3) fL RDW Coeff of Stephanie 11.8 (11.5-14.5) % Plt Count 313 (130-400) K/uL MPV 10.7 (9.4-12.4) fL Immature Gran % (Auto) 0.6 % Neut % (Auto) 86.1 % Lymph % (Auto) 6.7 % [place] % (Auto) 5.8 % Eos % (Auto) 0.3 % Baso % (Auto) 0.5 % Neut # (Auto) 13.32 H (1.40-6.50) K/uL Lymph # (Auto) 1.03 L (1.2-3.4) K/uL [place] # (Auto) 0.90 H (0.11-0.59) K/uL Eos # (Auto) 0.05 (0-0.50) K/uL Baso # (Auto) 0.07 (0-0.2) K/uL Immature Gran # (Auto) 0.09 (0.01-0.20) K/uL ESR (0-20) mm/hr PT (9.0-12.0) Seconds INR (0.9-1.1) APTT (21.0-31.0) Seconds PTT Ratio Sodium (136-145) mmol/L Potassium (3.5-5.1) mmol/L Chloride (98-107) mmol/L Carbon Dioxide (21-32) mmol/L Anion Gap (3-11) BUN (6-23) mg/dl Creatinine (0.6-1.4) mg/dl Est Cr Clr Drug Dosing ml/min Est GFR ( Amer) ml/min Est GFR (Non-Af Amer) ml/min BUN/Creatinine Ratio (10-20) Glucose (70-99(Fasting)) mg/dl Estimat Average Glucose Hemoglobin A1c Lactate 2.1 H* (0.4-2.0) mmol/L Calcium (8.6-10.3) mg/dl Magnesium (1.7-2.4) mg/dl Total Bilirubin (0.2-1.0) mg/dl AST (13-39) U/L ALT (7-52) U/L Alkaline Phosphatase (34-104) U/L C-Reactive Protein Total Protein (6.0-8.3) gm/dl Albumin (3.4-5.0) gm/dl Globulin (2.5-4.0) gm/dl Albumin/Globulin Ratio (0.9-2) Procalcitonin (0-0.5) ng/ml Urine Color Urine Appearance (Clear) Urine pH (4.5-7.5) Ur Specific [place] (1.000-1.030) Urine Protein (Negative) Urine Glucose (UA) (Negative) Urine Ketones (Negative) Urine Blood (Negative) Urine Nitrite (Negative) Urine Bilirubin (Negative) Urine Urobilinogen (Negative) Ur Leukocyte Esterase (Negative) Diagnostic Findings Foot X-Ray 11/18/22 13:27 XR foot LT min 3V routine CLINICAL HISTORY: Left foot infection. COMPARISON: None FINDINGS: Alignment of the left foot is anatomic. Tarsometatarsal joints are intact. There is left first toe soft tissue swelling. Note is made of multifocal soft tissue gas within the left first toe which extends to the level of the midshaft of the first metatarsal. There is equivocal erosion of the plantar aspect of the distal phalanx of the left first toe. Lateral view demonstrates a skin defect consistent with wound along the plantar aspect of the interphalangeal joint of the left first toe. There are no acute fracture. IMPRESSION: 1. Left first toe wound with soft tissue swelling. Although the gas may be re lated to the wound, the findings raise the possibility of a gas-forming infectious process such as necrotizing fasciitis. 2. Possible erosion of the plantar aspect of the distal phalanx of the left first toe which raises the possibility of osteomyelitis. This can be assessed on CT which has been ordered. ACT 112: Negative or not required by law. Electronically signed by: Heron Phoenix M.D. 11/18/2022 3:[address] 11/18/22 15:15 CT foot LT w con HISTORY: 62 years-old Male gangrenous left great toe, DM ulcer chronic left foot pain with diabetic foot ulcer COMPARISON: Frontal radiographs of same day TECHNIQUE: Multiple axial CT images of the left foot were obtained following the intravenous administration of contrast. A dose lowering technique was used consistent with the principals of ALA. FINDINGS: Air is present within the medullary space of the first distal phalanx and head of the first proximal phalanx. There is a acute pathologic intra-articular fracturing within the base of the first distal phalanx with subtle plantar cortical erosions (best seen on the sagittal images). Moderate subcutaneous edema with deep tissue air of the first digit. 1.6 cm plantar ulcer of the great toe. Mild osteoarthritis. Midfoot alignment is anatomic. No additional acute fracture, dislocation or osseous erosion identified. Subcentimeter chronic appearing osteochondral defect of the medial talar dome. No drainable abscess. Arterial calcifications. [id number] diffuse subcutaneous edema. IMPRESSION: 1. Osteonecrosis of the first proximal and distal phalanges with distal phalangeal osteomyelitis. 2. Plantar ulcer of the great toe with cellulitis. Associated deep tissue air may be secondary to direct communication from the wound versus necrotizing fasciitis. 3. Acute nondisplaced pathologic fracture of the first distal phalanx. ACT 112: Negative or not required by law. The above report was generated using voice recognition software. It may contain grammatical, syntax or spelling errors. Electronically signed by: Ángel Payne M.D. 11/18/2022 4:07 PM Supervising Physician Co-Signing Physician Notes I personally saw and examined the patient. I verified all candelario points and agree with Laurie Cuevas PA-C with the following exceptions and/or additions: 62 year old male presents to the ER with worsening toe infection. Ulcer for 6 months - not seen a provider for this despite his diabetes. Suddenly worse today. No fever or chills. O/E A&Ox3, HS RRR, no murmurs, Chest CTAB, Abdo SNT, Left 1st toe purple with erythema and swelling spreading up to ankle, stage 4 ulcer on plantar aspect of 1st toe A/P Cellulitis/osteoporosis with stage 4 diabetic ulcer - US venous and arterial doppler, Zosyn + daptomycin, blood cultures, Consult orthopedics PG Care Time/CCT Total # of Minutes Spent Total Time Spent with Patient: Total time spent is greater than 50% in coordination of care (as documented) at patient's floor/unit and/or counseling patient: Coding Level of Care Code 78948 INT INP/OBS CARE 3/75MIN Diagnoses Gangrenous toe I96 Sepsis A41.9 Osteomyelitis M86.9 Uncontrolled type 2 diabetes mellitus with insulin therapy E11.65; Z79.4 Hypertension I10 Hyperlipidemia E78.5 Esophageal reflux K21.9
[2022-11-18 15:47] LABS: Albumin Level 4.2 gm/dl (3.4-5.0); BUN Creatinine Ratio 19.7 (10-20); Bilirubin,Total 1.3 mg/dl (0.2-1.0); Calcium 9.9 mg/dl (8.6-10.3); Est GFR (African American) 119.3 ml/min; Est GFR (Non-African American) 102.9 ml/min; Globulin 4.1 gm/dl (2.5-4.0); Magnesium 2.1 mg/dl (1.7-2.4); Potassium 4.1 mmol/L (3.5-5.1); Total Protein 8.3 gm/dl (6.0-8.3)
[2022-11-18] MEDS: DAPTOmycin 450 MG in SYRINGE 0 ML IV SCH (15:52)
[2022-11-18 16:02] LABS: Appearance Urine Clear (Clear); Bilirubin Urine Negative (Negative); Blood Urine Negative (Negative); Color Urine Yellow; Glucose Urine UA 3+ (Negative); Ketones Urine Trace (Negative); Leukocyte Esterase Urine Negative (Negative); Nitrite Urine Negative (Negative); Protein Urine Negative (Negative); Specific Gravity Urine 1.044 (1.000-1.030); Urobilinogen Urine Negative (Negative)
[2022-11-18] MEDS ORDERED: NovoLIN-R INSULIN PER UNIT CHARGE IV STA (16:03)
--- NOTE | 2022-11-18 16:08 | CT Scan Report ---
CT foot LT w con HISTORY: 62 years-old Male gangrenous left great toe, DM ulcer chronic left foot pain with diabetic foot ulcer COMPARISON: Frontal radiographs of same day TECHNIQUE: Multiple axial CT images of the left foot were obtained following the intravenous administ ration of contrast. A dose lowering technique was used consistent with the principals of ARMANDO. FINDINGS: Air is present within the medullary space of the first distal phalanx and head of the first proximal phalanx. There is a acute pathologic intra-articular fracturing within the base of the first distal p halanx with subtle plantar cortical erosions (best seen on the sagittal images). Moderate subcutaneou s edema with deep tissue air of the first digit. 1.6 cm plantar ulcer of the great toe. Mild osteoarthritis. Midfoot alignment is anatomic. No additional acute fracture, dislocation or osse ous erosion identified. Subcentimeter chronic appearing osteochondral defect of the medial talar dome . No drainable abscess. Arterial calcifications. [id number] diffuse subcutaneous edema. IMPRESSION: 1. Osteonecrosis of the first proximal and distal phalanges with distal phalangeal osteomyelitis. 2. Plantar ulcer of the great toe with cellulitis. Associated deep tissue air may be secondary to dir ect communication from the wound versus necrotizing fasciitis. 3. Acute nondisplaced pathologic fracture of the first distal phalanx. ACT 112: Negative or not required by law. The above report was generated using voice recognition software. It may contain grammatical, syntax o r spelling errors. Electronically signed by: Ángel Payne M.D. 11/18/2022 4:07 PM
[2022-11-18 16:37] LABS: C Reactive Protein 34.37 mg/dl (0-0.5)
--- NOTE | 2022-11-18 17:19 | Anesthesiology Consultation ---
Date of Service November 18, 2022 Assessment & Plan Chart Review Chart Review: Acceptable Risk for Surgery and Patient NOT seen in Pre Admission Testing History Surgery Operation Date: 11/18/22 12:55 Proposed Procedures p Left Great Toe Amputation - Gordon Ramirez DPM, MS Height/Weight Height: 5 ft 11 in Weight: 83.9 kg Allergies Allergy/AdvReac Type Severity Reaction Status Date / Time No Known Allergies Allergy Mild Verified 11/18/22 16:28 Medications Home Medications Medication Instructions Recorded Confirmed Last Taken cholecalciferol (vitamin D3) 50 4,000 unit PO HS 09/03/18 11/18/22 11/17/22 mcg (2,000 unit) capsule (Vitamin D3) cyanocobalamin (vitamin B-12) 2,000 mcg PO QAM 09/03/18 11/18/22 11/18/22 2,000 mcg tablet,extended release (Vitamin B-12 ER) krill 1,000 mg-omega-3 170 mg-dha 1 cap PO QAM 09/03/18 11/18/22 12/08/20 50 mg-epa 80 [id number] capsule (krill oil) blood sugar diagnostic (OneTouch #10 ea 05/24/19 04/11/21 Unknown Ultra Blue Test Strip) lancets (OneTouch UltraSoft #50 ea 05/24/19 04/11/21 Unknown Lancets) aspirin 81 mg tablet,delayed 81 mg PO QAM 12/08/20 11/18/22 11/14/22 release dulaglutide 1.5 mg/0.5 mL 1.5 mg (0.5 mL) subcut .COMPLEX 10/09/21 11/18/22 11/16/22 subcutaneous pen injector #12 syringes (Trulicity) insulin aspart U-100 100 unit/mL 20 unit (0.2 mL) subcut .COMPLEX 10/09/21 11/18/22 11/18/22 (3 mL) subcutaneous pen (Novolog #18 mL FlexPen U-100 Insulin aspart) insulin degludec 200 unit/mL (3 70 unit (0.35 mL) subcut HS #32 10/09/21 11/18/22 11/17/22 mL) subcutaneous pen (Tresiba SYRINGES FlexTouch U-200 insulin) metformin 500 mg tablet,extended 1,000 mg PO BID #360 tabs 10/09/21 11/18/22 11/18/22 release 24 hr pen needle, diabetic 32 gauge x #100 ea 10/09/21 10/09/21 Unknown " (BD Ultra-Fine Clau Pen Needle) rosuvastatin 20 mg tablet 20 mg PO HS #90 tabs 10/09/21 11/18/22 11/17/22 Active Medications Generic Name Dose Route Start Last Admin Trade Name Vic PRN Reason Stop Dose Admin Daptomycin 450 mg/ Syringe 9 mls @ 4.5 mls/min 11/18/22 15:15 11/18/22 15:52 IV 11/20/22 15:14 4.5 mls/min Q24H AUDIE Administration Protocol Past Medical History Medical History History of melanoma Hyperlipidemia Hypertension Uncontrolled type 2 diabetes mellitus with insulin therapy Past Family History Family History Father Diabetes Mother Coronary heart disease Sister Cancer Other No family history of adverse response to anesthesia No pertinent family history Denies family history of Ovarian cancer Prostate cancer Breast cancer Colorectal cancer Past Surgical History Surgical History History of colonoscopy with polypectomy History of melanoma excision Hx of vasectomy Social History Smoking Status: Never smoker Do You Dip or Chew Tobacco: No Hx Alcohol Use: Yes Alcohol type: beer and hard liquor alcohol intake frequency: a few times a week Hx Substance Use: No substance use type: does not use Physical Exam Vital Signs Last Vital Signs Temp 36.8 C 11/18/22 15:13 Pulse 107 H 11/18/22 14:52 Resp 20 11/18/22 14:52 BP 204/102 H 11/18/22 14:52 Pulse Ox 97 11/18/22 14:56 O2 Del Method Room Air 11/18/22 14:56 Testing Laboratory Results 11/18/22 14:40 11/18/22 14:40 PT 11.1 Seconds (9.0-12.0) 11/18/22 14:40 INR 1.0 (0.9-1.1) 11/18/22 14:40 APTT 30.5 Seconds (21.0-31.0) 11/18/22 14:40 Urine Color Yellow 11/18/22 14:55 Urine Appearance Clear (Clear) 11/18/22 14:55 Urine pH 6.0 (4.5-7.5) 11/18/22 14:55 Ur Specific [place] 1.044 (1.000-1.030) H 11/18/22 14:55 Urine Protein Negative (Negative) 11/18/22 14:55 Urine Glucose (UA) 3+ (Negative) H 11/18/22 14:55 Urine Ketones Trace (Negative) H 11/18/22 14:55 Urine Nitrite Negative (Negative) 11/18/22 14:55 Ur Leukocyte Esterase Negative (Negative) 11/18/22 14:55 11/18/22 16:31 POC Glucose 318 H*
[2022-11-18] MEDS ORDERED: MIDAZOLAM HCL 1 MG/ML 2ML VIAL ONE (17:32)
[2022-11-18] MEDS ORDERED: LIDOCAINE 2% 2 ML VIAL/AMP(20MG/ML) INFIL ONE (17:32)
[2022-11-18] MEDS ORDERED: PROPOFOL IV EMULSION 10 MG/ML 20 ML VIAL IV ONE ×2 (17:32→18:20)
[2022-11-18] MEDS ORDERED: fentaNYL citrate PF 100 MCG/2 ML VIAL ONE (17:32)
--- NOTE | 2022-11-18 17:35 | Orthopedic Consultation ---
Date of Consultation November 18, 2022 Assessment & Plan (1) Osteomyelitis: Patient seen, evaluated and treated. Reviewed diagnostic imaging and findings. Discussed immediate amputation of first ray due to findings and plan of care. Patient is a severe risk for limb loss and procedure deemed emergent. Discussed with Patient risks in detail. Consent obtained. (2) Gangrenous toe: (3) Sepsis: History of Present Illness History of Present Illness Patient is a 62 year old male seen at [facility] Emergency Department for Left foot wound. Patient has a past medical history significant for uncontrolled DM, HTN, HLD, reflux, and melanoma. He was seen by ED provider who acknowledged an acute on chronic gangrenous LEFT great toe/diabetic ulceration to plantar aspect of foot. Patient reports ongoing for about a year. He denies immediate con stitutional symptoms. Lactate 2.1. Osteomyelitis noted to Left distal phalanx with ascending Gas noted trafficking to first ray via flexor hallucis tendon. Allergies Allergy/AdvReac Type Severity Reaction Status Date / Time No Known Allergies Allergy Mild Verified 11/18/22 16:28 Home Medications Medication Instructions Recorded Confirmed Type cholecalciferol (vitamin D3) 50 4,000 unit PO HS 09/03/18 11/18/22 History mcg (2,000 unit) capsule (Vitamin D3) cyanocobalamin (vitamin B-12) 2,000 mcg PO QAM 09/03/18 11/18/22 History 2,000 mcg tablet,extended release (Vitamin B-12 ER) krill 1,000 mg-omega-3 170 mg-dha 1 cap PO QAM 09/03/18 11/18/22 History 50 mg-epa 80 [id number] capsule (krill oil) blood sugar diagnostic (OneTouch #10 ea 05/24/19 04/11/21 History Ultra Blue Test Strip) lancets (OneTouch UltraSoft #50 ea 05/24/19 04/11/21 History Lancets) aspirin 81 mg tablet,delayed 81 mg PO QAM 12/08/20 11/18/22 History release dulaglutide 1.5 mg/0.5 mL 1.5 mg (0.5 mL) subcut .COMPLEX 10/09/21 11/18/22 Rx subcutaneous pen injector #12 syringes ([facility]) insulin aspart U-100 100 unit/mL 20 unit (0.2 mL) subcut .COMPLEX 10/09/21 11/18/22 Rx (3 mL) subcutaneous pen (Novolog #18 mL FlexPen U-100 Insulin aspart) insulin degludec 200 unit/mL (3 70 unit (0.35 mL) subcut HS #32 10/09/21 11/18/22 Rx mL) subcutaneous pen (Tresiba SYRINGES FlexTouch U-200 insulin) metformin 500 mg tablet,extended 1,000 mg PO BID #360 tabs 10/09/21 11/18/22 Rx release 24 hr pen needle, diabetic 32 gauge x #100 ea 10/09/21 10/09/21 Rx " (BD Ultra-Fine Clau Pen Needle) rosuvastatin 20 mg tablet 20 mg PO HS #90 tabs 10/09/21 11/18/22 Rx Patient History Medical History History of melanoma Hyperlipidemia Hypertension Uncontrolled type 2 diabetes mellitus with insulin therapy Surgical History History of colonoscopy with polypectomy History of melanoma excision Hx of vasectomy Family History Father Diabetes Mother Coronary heart disease Sister Cancer Other No family history of adverse response to anesthesia No pertinent family history Denies family history of Ovarian cancer Prostate cancer Breast cancer Colorectal cancer Social History Smoking Status: Never smoker Second Hand Exposure: Yes (parents smoked); Do You Dip or Chew Tobacco: No; Hx Alcohol Use: Yes Alcohol type: beer and hard liquor Hx Substance Use: No Preferred Language: Urugu[place] Communication Ability: Effective Hearing Ability: Normal Roadside Mechanic Required: No Beliefs That Will Affect Care: None Current Living Situation: Spouse Current Living Situation Comment: X 2 current occupational status: employed Feels Safe at Home: Yes Childhood Exposure to Second-Hand Smoke: No Diet: regular caffeine: Yes during the past year weight has: remained stable Dental Care, Regularly: Yes Physical Activity Frequency: 5-6 Times per Week Seatbelt Use: always Sunscreen Use: Yes Assistive Devices: Glasses Review of Systems Review of Systems: All systems reviewed & are unremarkable except as noted in HPI & below Physical Exam Constitutional: cooperative and comfortable Eyes: normal visual hart by confrontation Neck: normal visual inspection Respiratory: normal respiratory effort Cardiovascular: Rate/Rhythm: regular rhythm and + tachycardic (Slight) Musculoskeletal: Extremities: extremities normal to inspection Skin: + ulcer (Left plantar hallux full thickness DFU probes to bone), + wound (Left hallux dark and dusky) and + erythema (diffuse Left foot ascending erythema) Neurologic: moves all extremities (Absent epicritic senstation) Psychiatric: Orientation: alert and oriented x 3 Results & Data Vital Signs (Past 12 Hours) Vital Signs Temp Pulse Pulse Resp BP BP Pulse Ox 11/18/22 17:21 36.9 C 11/18/22 17:00 111 H 18 173/94 H 99 11/18/22 15:13 36.8 C 11/18/22 14:56 97 11/18/22 14:52 107 H 20 204/102 H 97 11/18/22 14:50 101 H 11/18/22 13:22 36.8 C 103 H 18 159/89 H 98 O2 Del Method 11/18/22 17:21 11/18/22 17:00 Room Air 11/18/22 15:13 11/18/22 14:56 Room Air 11/18/22 14:52 Room Air 11/18/22 14:50 11/18/22 13:22 Room Air Diagnostic Findings CT foot LT w con HISTORY: 62 years-old Male gangrenous left great toe, DM ulcer chronic left foot pain with diabetic foot ulcer COMPARISON: Frontal radiographs of same day TECHNIQUE: Multiple axial CT images of the left foot were obtained following the intravenous administration of contrast. A dose lowering technique was used consistent with the principals of ALARA. FINDINGS: Air is present within the medullary space of the first distal phalanx and head of the first proximal phalanx. There is a acute pathologic intra-articular fracturing within the base of the first distal phalanx with subtle plantar cortical erosions (best seen on the sagittal images). Moderate subcutaneous edema with deep tissue air of the first digit. 1.6 cm plantar ulcer of the great toe. Mild osteoarthritis. Midfoot alignment is anatomic. No additional acute fracture, dislocation or osseous erosion identified. Subcentimeter chronic appearing osteochondral defect of the medial talar dome. No drainable abscess. Arterial calcifications. Mlbt-vy-[id number] diffuse subcutaneous edema. IMPRESSION: 1. Osteonecrosis of the first proximal and distal phalanges with distal phalangeal osteomyelitis. 2. Plantar ulcer of the great toe with cellulitis. Associated deep tissue air may be secondary to direct communication from the wound versus necrotizing fasciitis. 3. Acute nondisplaced pathologic fracture of the first distal phalanx. ACT 112: Negative or not required by law. The above report was generated using voice recognition software. It may contain grammatical, syntax or spelling errors. Electronically signed by: Ángel Payne M.D. 11/18/2022 4:07 PM [place], [place] [phone] XRay Report Patient:YOLIS GALINDO Admit Date:11/18/22 MR#:[id number] Address1:[address] [place] [address] Acct ID:[id number] Address2: Date:1960 [facility] Zip:[place] [address] Age:62 Location:ED Sex:M Room/Bed: Att Phy: Diagnosis:L FOOT BIG TOE IS PURPLE Yohana Phy:Tamy Gaspar CRNP Service Date:11/18/22 Fam Phy: Interpreting Phy:Heron Phoenix MDAdmit Phy: Ordering Phy:Mj Josue M.D. cc: ~ XR foot LT min 3V routine CLINICAL HISTORY: Left foot infection. COMPARISON: None FINDINGS: Alignment of the left foot is anatomic. Tarsometatarsal joints are intact. There is left first toe soft tissue swelling. Note is made of multifocal soft tissue gas within the left first toe which extends to the level of the midshaft of the first metatarsal. There is equivocal erosion of the plantar aspect of the distal phalanx of the left first toe. Lateral view demonstrates a skin defect consistent with wound along the plantar aspect of the interphalangeal joint of the left first toe. There are no acute fracture. IMPRESSION: 1. Left first toe wound with soft tissue swelling. Although the gas may be related to the wound, the findings raise the possibility of a gas-forming i nfectious process such as necrotizing fasciitis. 2. Possible erosion of the plantar aspect of the distal phalanx of the left first toe which raises the possibility of osteomyelitis. This can be assessed on CT which has been ordered.
--- NOTE | 2022-11-18 17:36 | History & Physical Bridge Note ---
Date of Service November 18, 2022 History & Physical Bridge Note I have examined the patient, reviewed the History & Physical and in the interval since the performance of the History & Physical I have noted the following changes of clinical significance: no changes noted
[2022-11-18] MEDS ORDERED: BUPIVACAINE 0.5 % 5 MG/1 ML MPF 30ML VIAL ONE (17:41)
[2022-11-18] MEDS ORDERED: ePHEDrine sulfate 50 MG/ML AMP IV PRN (17:43)
[2022-11-18] MEDS ORDERED: HYDROmorphone INJ 2 MG/ML SYR/VIAL IV PRN (17:43)
[2022-11-18] MEDS ORDERED: fentaNYL citrate PF 100 MCG/2 ML VIAL IV PRN (17:43)
[2022-11-18] MEDS ORDERED: ATROPINE SULFATE 0.1 MG/ML 10ML SYR IV PRN (17:43)
[2022-11-18] MEDS ORDERED: ONDANSETRON INJ 2 MG/ML 2 ML VIAL IV PRN ×2 (17:43→19:25)
[2022-11-18] MEDS ORDERED: KETAMINE 50 MG/5 ML SYRINGE ONE (18:14)
--- NOTE | 2022-11-18 18:34 | XRay Report ---
SINGLE VIEW CHEST CLINICAL HISTORY: Preoperative examination FINDINGS: An AP, portable, upright chest radiograph is compared to study dated 09/03/2018. Correlation is made with chest CT dated 10/17/2021. The cardiomediastinal silhouette is top normal for projection . The pulmonary vasculature is noncongested. Chronic interstitial thickening is similar to previous. There is mild bibasilar scarring/atelectasis. The lungs and pleural spaces are otherwise clear. No pn eumothorax is seen. The skeletal structures appear osteopenic. The bony thorax is grossly intact. IMPRESSION: No active disease in the chest. ACT 112: Negative or not required by law. Electronically signed by: Nura Rothman M.D. 11/18/2022 6:33 PM
--- NOTE | 2022-11-18 18:40 | Post Operative Brief Note ---
Immediate Post Op Note v1 Date of Surgery November 18, 2022 Pre & Post Diagnosis Operation Date: 11/18/22 12:55 Pre-Op Diagnosis: left great toe osteomyelitis Post-Op Diagnosis: left great toe osteomyelitis I identified the patient and participated in the time-out.: Yes Procedure Operation Date: 11/18/22 12:55 Actual Procedures p Left Great Toe Amputation(Left) - Gordon Ramirez DPM, MS Surgeon Gordon Ramirez DPM, MS Surveying Crew Stake Runner None Estimated Blood Loss 5 Findings Consistent with Post-Op Diagnosis Consistent with pre-operative diagnosis Specimens Deep cultures left foot Left distal phalanx great toe - Microbiology Left hallux - Pathology
--- NOTE | 2022-11-18 18:56 | Anesthesiology Progress Note ---
Date of Service November 18, 2022 Anesthesia Post Procedure Vital Signs Vital Signs: Temp Pulse Pulse Resp BP BP Pulse Ox 11/18/22 18:50 97 H 22 130/81 97 11/18/22 18:43 36.6 C 95 H 16 125/79 99 11/18/22 17:26 38.2 C H 114 H 22 159/98 H 98 11/18/22 17:21 36.9 C 11/18/22 17:00 111 H 18 173/94 H 99 11/18/22 15:13 36.8 C 11/18/22 14:56 97 11/18/22 14:52 107 H 20 204/102 H 97 11/18/22 14:50 101 H 11/18/22 13:22 36.8 C 103 H 18 159/89 H 98 O2 Del Method O2 Flow Rate 11/18/22 18:50 Room Air 11/18/22 18:43 Oxymask 6 11/18/22 17:26 Room Air 11/18/22 17:21 11/18/22 17:00 Room Air 11/18/22 15:13 11/18/22 14:56 Room Air 11/18/22 14:52 Room Air 11/18/22 14:50 11/18/22 13:22 Room Air Pain Intensity Left Foot: Pain Intensity: 2 Transfer of Care Handoff Completed per policy Notes Mental Status: alert / awake / arousable and participated in evaluation Patient Amnestic to Procedure: Yes Nausea / Vomiting: adequately controlled Pain: adequately controlled Airway Patency, RR, SpO2: stable & adequate BP & HR: stable & adequate Hydration State: stable & adequate Anesthetic Complications: no major complications apparent and Pt Satisfied with anesthetic care
[2022-11-18] MEDS ORDERED: hydrALAZINE HCL 20 MG/ML VIAL IV PRN (19:25)
[2022-11-18] MEDS ORDERED: GLUCAGON FOR INJ 1 MG VIAL SQ PRN (19:25)
[2022-11-18] MEDS ORDERED: GLUCOSE 40% GEL 15 GM TUBE PO PRN (19:25)
[2022-11-18] MEDS ORDERED: INSULIN ASPART PER UNIT CHARGE SC SCH ×2 (19:25→21:00)
[2022-11-18] MEDS ORDERED: MoRPHine SULFATE 2 MG/ML CARP IV PRN ×2 (19:25)
[2022-11-18] MEDS ORDERED: CARBOHYDRATES FOR HYPOGLYCEMIA PO PRN (19:25)
[2022-11-18] MEDS ORDERED: PHARMACY GLYCEMIC MGMT CONSULT PRN (19:25)
[2022-11-18] MEDS ORDERED: LORazepam 0.5 MG TAB PO PRN (19:25)
[2022-11-18] MEDS ORDERED: DEXTROSE 50% 50 ML SYRINGE IV PRN (19:25)
[2022-11-18] MEDS ORDERED: GLUCOSE 10 TAB/TUBE PO PRN (19:25)
[2022-11-18] MEDS: SODIUM CHLORIDE 0.9% 1000ML 1,000 ML IV SCH (19:45)
[2022-11-18] MEDS: PIPERACILLIN/TAZOBACTAM 4.5 GM in DEXTROSE 5% 100 ML IV SCH (20:03)
[2022-11-18] MEDS ORDERED: LANTUS PER UNIT CHARGE SQ SCH (21:00)
[2022-11-18] MEDS: INSULIN ASPART PER UNIT CHARGE SC SCH (21:04)
[2022-11-18] MEDS: ASPIRIN 81 MG ECTAB PO SCH (21:06)
--- NOTE | 2022-11-18 21:35 | Operative Report ---
Post Operative Report Pre & Post Diagnosis Operation Date: 11/18/22 12:55 Pre-Op Diagnosis: left great toe osteomyelitis Post-Op Diagnosis: left great toe osteomyelitis I identified the patient and participated in the time-out.: Yes Procedure Operation Date: 11/18/22 12:55 Actual Procedures p Left Great Toe Amputation(Left) - Gordon Ramirez DPM, MS Surgeon Gordon Ramirez DPM, MS Qa Software Test Engineer None Estimated Blood Loss 5 Findings Consistent with Post-Op Diagnosis consistent with pre operative diagnosis Specimens 1. Left hallux - pathology 2. left distal phalanx - microbiology 3. Deep cultures left foot Description of Procedure History of present illness: Patient is an uncontrolled type II diabetic, 62 year old male who is seen emergently for treatment gas gangrene with osteomyelitis of the left great toe. Patient notes a diabetic foot ulcer open for multiple months. Patient is at risk for loss limb. Due to infection left first ray will be removed and left open. All questions answered. Discussed procedure in detail and postoperative recovery. All potential risks, benefits, complications, alte rnatives, rehab, potential for incomplete relief of symptoms, need for further surgery, DVT, PE, , persistent pain, swelling, scarring, weakness, neurovascular, wound complications and potential for amputations were discussed with patient. Unwanted outcomes such as, but not limited to were reviewed including under correction, overcorrection, return of deformity, infection. All questions were answered. Patient has decided to proceed with procedure as indicated. Preoperative diagnosis: 1.) Diabetic left foot ulcer 2.) Gas Gangrene left foot 2.) Osteomyelitis left great toe Postoperative diagnosis: same Name of operation: 1.) Incision and drainage Left foot 2.) Amputation left first ray Surgeon Dr. Ramirez Qa Software Test Engineer: None Anesthesia: local with monitored anesthesia care Hemostasis: pneumatic ankle tourniquet Estimated blood loss: minimal Procedure in detail: Under mild sedation the patient was brought in the operating room placed on the operating table in supine position. A pneumatic ankle tourniquet was then placed about the patient's left ankle. Following IV sedation local anesthesia was obtained about the left utilizing 15 cc of a one-to-one mixture of 1% lidocaine plain and 0.5% Marcaine plain. The foot was then prepped scrubbed and draped in usual aseptic manner. An Esmarch bandage was utilized to exsanguinate the patient's left foot and the pneumatic ankle tourniquet was then inflated. Attention was then directed to a gangrenous left great toe. An incision was created utilizing a sharp, sterile, #15 blade at the level of the metatarsal phalangeal joint. The incision which was deepened through subcutaneous tissue using sharp blunt dissection. Care was taken to identify and retract all vital neurovascular structures. All bleeders were ligated and cauterized necessary. At this time the left hallux was removed and placed on the back table. The left hallux was sent to pathology. A portion of the first distal phalanx was sent to microbiology. Deep cultures were taken. Once the first metatarsal phalangeal joint was entered copious amounts of purulent exudate was evaluated. The exudate trafficked plantar up the flexor tendon sheath. A sharp, sterile, #15 blade was utilized to open and release this area to the level of the mid tarsal joint. An oscillating saw was used to remove the first metatarsal head. Copious amounts of lactate ringer were utilized to flush the incision site under low flow. Due to infection the wound was left open to drain and will be closed primarily at a later date. Upon completion of the procedure the incision was dressed with Betadine soaked Adaptic followed by sterile compressive dressing consisting of 4 x 4's Vale Kerlix ABD. The pneumatic ankle tourniquet was deflated and a prompt hyperemic response was noted to remaining digits of the left foot. The Patient tolerated the procedure and anesthesia well. He was transferred to recovery room vital signs. Following a period of postoperative monitoring the patient will be admitted to the floor resuming pre operative orders. Please contact Dr. Ramirez for all postoperative care if any problems arise . I attest to the content of the Intraoperative Record and any orders documented therein. Any exceptions are noted below.
[2022-11-19] MEDS: INSULIN ASPART PER UNIT CHARGE SC SCH ×6 (01:39→21:09)
--- NOTE | 2022-11-19 02:05 | Ultrasound Report ---
Exam(s): US ARTERIAL LEFT LOWER EXTREMITY EXAM: US Duplex Left Lower Extremity Arteries CLINICAL HISTORY: Reason for exam: acute gangrenous toe, concerns thrombus. TECHNIQUE: Real-time duplex ultrasound scan of the left lower extremity arteries integrating B-mode two-dimensional vascular structure, Doppler spectral analysis and color flow Doppler imaging. COMPARISON: No relevant prior studies available. FINDINGS: Left common femoral artery: Mild atherosclerosis, with possible ulcerative plaque. No occlusion or significant stenosis on color flow and spectral Doppler imaging. Left superficial femoral artery: No stenosis or occlusion. Left popliteal artery: Elevated velocity, 205 cm/s. Left calf/foot arteries: Intermittent occluded anterior tibial artery, with short segment flow reversal. Low velocity distally 23 cm/s. Elevated velocities distal posterior tibial artery 172 cm/s. Monophasic waveforms. Patent dorsalis pedis artery. Soft tissues: Unremarkable. IMPRESSION: 1. Abnormal exam with intermittent occluded RILEY. 2. Elevated velocities popliteal artery and MOLDER INFLATED BALL. 3. 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 4. Consider CTA runoff as indicated for further evaluation. Electronically signed by: Pema Ferrell M.D. 11/19/22 02:04 AM
--- NOTE | 2022-11-19 02:12 | Ultrasound Report ---
Exam(s): US VENOUS LEFT LOWER EXTREMITY EXAM: US Duplex Left Lower Extremity Veins CLINICAL HISTORY: Reason for exam: r/o dvt, +calf pain. TECHNIQUE: Real-time duplex ultrasound scan of the left lower extremity veins integrating B-mode two-dimensional vascular structure, Doppler spectral analysis, color flow Doppler imaging and compression. COMPARISON: No relevant prior studies available. FINDINGS: Veins: No DVT in the visualized veins, including the common femoral, superficial femoral, proximal deep femoral and popliteal veins. The veins demonstrate normal color flow, are normally compressible, with normal phasic flow and/or augmentation response. Soft tissues: No popliteal cyst. Left inguinal lymph node, 3.9 X 1.6 X 3.5 cm, not pathologically enlarged by size criteria, and maintains a normal fatty hilum. May be reactive. IMPRESSION: 1. No DVT. 2. Left inguinal lymph node, nonspecific, likely reactive. Electronically signed by: Pema Ferrell M.D. 11/19/22 02:11 AM
[2022-11-19] MEDS: PIPERACILLIN/TAZOBACTAM 4.5 GM in DEXTROSE 5% 100 ML IV SCH ×3 (04:38→21:10)
[2022-11-19] MEDS: ACETAMINOPHEN 325 MG TAB PO PRN ×2 (04:52→19:41)
[2022-11-19] MEDS ORDERED: Nursing to Pharmacy Communication SCH (06:30)
[2022-11-19 07:15] LABS: Estimated Average Glucose 272 mg/dl; Hemoglobin A1C 11.1 % (4.5-5.6)
[2022-11-19] MEDS: SODIUM CHLORIDE 0.9% 1000ML 1,000 ML IV SCH (07:30)
--- NOTE | 2022-11-19 07:51 | Hospitalist Progress Note ---
Date of Service November 19, 2022 Assessment & Plan (1) Gangrenous toe: Plan: concerns for osteo given xray/exam w/ gangrenous LEFT first toe/DM foot ulcer on admission w/ WBC 15.4k, BSG 374, lactic 2.1, procal 0.48, ESR/CRP elevation to 97/34.37 CT ordered for further eval but suspect osteo/significant elevation in CRP/ESR to 34.37 and 97 respectively * 1. Osteonecrosis of the first proximal and distal phalanges with distal phalangeal osteomyelitis. * 2. Plantar ulcer of the great toe with cellulitis. Associated deep tissue air may be secondary to direct communication from the wound versus necrotizing fasciitis. * Acute nondisplaced pathologic fracture of the first distal phalanx. Placed on Zosyn/Dapto -- continuing given coverage for DM foot ulcer in uncontrolled diabetic (BSG 374 yesterday on initial labs) Blood cultures obtained on admission, pending Podiatry consulted POD# 1 s/p LEFT hallux amputation w/ Dr Ramirez last evening. EBL 5cc. Micro pending for L distal phalanx, deep cx sent and pending Monitor OR cultures/blood cultures Pain control as needed, antiemetics Diabetic diet, A1c elevated 11.1. WIll consult DM educator as well. 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 Consdider CTA runoff as indicated Vascular surgery consulted for this morning -- no claudication symptoms. Will monitor healing over next 2-3 weeks, if issues can consider arranging for angio. Continue ASA 81mg in meantime WBC downtrending, 15--> 11k. Afebrile PT/OT consults to be obtained -- will place orders for today, NWB to L foot unless otherwise specified by Dr Ramirez -- to see this evening. Will need surgical shoe likely as well Heparin SQ for DVT prophylaxis added Monitor labs in AM (2) Sepsis: Plan: Leukocytosis, tachycardia (sinus tachy on monitor) on admission with elevated lactic acid suspected due to acute gangrenous toe/osteomyelitis blood cultures/IV abx as outlined above, podiatry consulted WBC improving, afebrile, tx as outlined above. Blood cultures NGTD at present (3) Osteomyelitis: Plan: imaging supporting diagnosis, elevation in inflammatory markers. podiatry consulted as above for urgent amputation consult placed for ID for tomorrow for recs at discharge (4) Uncontrolled type 2 diabetes mellitus with insulin therapy: Plan: prior a1c 11s--> 9s but has been quite some time Elevated BSG on admission, given 10u IV insulin x 1, pharmacy consulted for glycemic management Suspect noncompliance at baseline A1c on repeat up to 11.1 DM educator consulted for today DM diet BSGs much improved and will continue to monitor. Rec'd to patient about better control to promote wound healing (5) Hypertension: Plan: Significant elevation in ER but asymptomatic from such, suspected 2nd to pain BP better today, 138/82 and will monitor for now in setting of pain but likely b enefit from adding low dose lisinopril given diabetes (however no protein noted on UA on admission) Monitoring for now, hydralazine available prn (6) Hyperlipidemia: Plan: holding crestor on Dapto, CK 195 baseline obtained Lipid panel obtained given arterial study as above but actually not bad -- > TRG 74, Chl 123, LDL 83, HDL 25 and will continue current dose crestor once off the dapto to prevent rhabdo (7) Esophageal reflux: Plan: not on medication, not reporting any issues at present Elevated LFTs --> likely acute phase, no abdominal pain Repeat w/ normal levels, suspect 2nd to acute infection as above. No abd pain on exam (8) Diabetic foot ulcer: Plan: as above, need better glucose control, uncontrolled DM s/p amputation as above Plan continued inpatient stay, monitor OR/blood cultures continue on Dapto/Zosyn for now Vascular surgery consulted given arterial study findings ID consulted for Friday Admission and Anticipated Discharge Date Admission Date: November 18, 2022 Subjective eval this morning, doing well. surgery last night, pain controlled w/ ordered medications not yet seen Dr Ramirez this morning, discussed likely by this afternoon Discussed arterial study and vascular consultation for possible intervention for improvement of blood flow/wound healing. No fever/chills, chest pain, shortness of breath at this time. Physical Exam Physical Exam: General: chronically ill appearing male sitting up in bed, NAD, appears improved compared to yesterday, present at end of discussion (updated) HEENT: head normocephalic, atraumatic, poor dentition, mm improved, trachea midline Resp: cta, no w/c/r, on room air CV: regular rate/rhythm, improvement in rates, no significant m/r/g, decreased edema to LLE, decreased calf tenderness, decreased pulses on the left compared to the right (able to be obtained w/ doppler) GI: +BS, soft/NT : no haro Psych: alert/oriented to person/place/time, cooperative with examination Neuro/MSK/Skin: no focal deficits/no slurred speech, CN intact grossly, following commands, strength equal throughout dressing to LEFT foot s/p hallux amputation c/d/i (did not remove today), no active drainage through dressing, able to wiggle toes no progression of lymphagitic streaking Results & Data Results & Data Vital Signs (Past 12 Hours) Vital Signs Temp Pulse Pulse Resp BP Pulse Ox O2 Del Method 11/19/22 04:00 37.0 C 86 20 125/77 95 Room Air 11/18/22 23:59 99 H 11/18/22 19:55 90 11/18/22 23:31 37.3 C 93 H 20 129/76 96 Room Air Laboratory Results 11/19/22 11/19/22 11/19/22 Range/Units 11:43 07:41 07:33 WBC (4.8-10.8) K/ul RBC (4.70-6.10) M/uL Hgb (14.0-18.0) g/dl Hct (42.0-52.0) % MCV (80.0-100.0) fL MCH (25.0-34.0) pg MCHC (32.0-36.0) g/dL RDW Std Deviation (36.4-46.3) fL RDW Coeff of Stephanie (11.5-14.5) % Plt Count (130-400) K/uL MPV (9.4-12.4) fL Immature Gran % (Auto) % Neut % (Auto) % Lymph % (Auto) % [place] % (Auto) % Eos % (Auto) % Baso % (Auto) % Neut # (Auto) (1.40-6.50) K/uL Lymph # (Auto) (1.2-3.4) K/uL [place] # (Auto) (0.11-0.59) K/uL Eos # (Auto) (0-0.50) K/uL Baso # (Auto) (0-0.2) K/uL Immature Gran # (Auto) (0.01-0.20) K/uL ESR (0-20) mm/hr Sodium (136-145) mmol/L Potassium (3.5-5.1) mmol/L Chloride (98-107) mmol/L Carbon Dioxide (21-32) mmol/L Anion Gap (3-11) BUN (6-23) mg/dl Creatinine (0.6-1.4) mg/dl Est Cr Clr Drug Dosing ml/min Est GFR ( Amer) ml/min Est GFR (Non-Af Amer) ml/min BUN/Creatinine Ratio (10-20) Glucose (70-99(Fasting)) mg/dl POC Glucose 151 H 143 H (70-99) mg/dl Estimat Average Glucose mg/dl Hemoglobin A1c (4.5-5.6) % Lactate (0.4-2.0) mmol/L Calcium (8.6-10.3) mg/dl Magnesium (1.7-2.4) mg/dl Total Bilirubin (0.2-1.0) mg/dl AST (13-39) U/L ALT (7-52) U/L Alkaline Phosphatase (34-104) U/L Total Creatine Kinase (30-223) U/L C-Reactive Protein (0-0.5) mg/dl Total Protein (6.0-8.3) gm/dl Albumin (3.4-5.0) gm/dl Globulin (2.5-4.0) gm/dl Albumin/Globulin Ratio (0.9-2) Triglycerides (0-150) mg/dl Cholesterol (0-200) mg/dl LDL Cholesterol, Calc mg/dl VLDL Cholesterol, Calc (0-30) mg/dl HDL Cholesterol mg/dl Cholesterol/HDL Ratio (0-5) Urine Color Urine Appearance (Clear) Urine pH (4.5-7.5) Ur Specific [place] (1.000-1.030) Urine Protein (Negative) Urine Glucose (UA) (Negative) Urine Ketones (Negative) Urine Blood (Negative) Urine Nitrite (Negative) Urine Bilirubin (Negative) Urine Urobilinogen (Negative) Ur Leukocyte Esterase (Negative) Hepatitis C Ab (EIA) Pending 11/19/22 11/19/22 11/19/22 Range/Units 07:33 07:33 04:40 WBC 11.35 H (4.8-10.8) K/ul RBC 4.29 L (4.70-6.10) M/uL Hgb 12.3 L D (14.0-18.0) g/dl Hct 34.8 L (42.0-52.0) % MCV 81.1 (80.0-100.0) fL MCH 28.7 (25.0-34.0) pg MCHC 35.3 (32.0-36.0) g/dL RDW Std Deviation 35.1 L (36.4-46.3) fL RDW Coeff of Stephanie 12.0 (11.5-14.5) % Plt Count 258 (130-400) K/uL MPV 10.4 (9.4-12.4) fL Immature Gran % (Auto) 0.4 % Neut % (Auto) 74.5 % Lymph % (Auto) 15.1 % [place] % (Auto) 8.5 % Eos % (Auto) 1.0 % Baso % (Auto) 0.5 % Neut # (Auto) 8.45 H (1.40-6.50) K/uL Lymph # (Auto) 1.71 (1.2-3.4) K/uL [place] # (Auto) 0.97 H (0.11-0.59) K/uL Eos # (Auto) 0.11 (0-0.50) K/uL Baso # (Auto) 0.06 (0-0.2) K/uL Immature Gran # (Auto) 0.05 (0.01-0.20) K/uL ESR (0-20) mm/hr Sodium 135 L (136-145) mmol/L Potassium 3.4 L (3.5-5.1) mmol/L Chloride 103 (98-107) mmol/L Carbon Dioxide 25 (21-32) mmol/L Anion Gap 7 (3-11) BUN 11 (6-23) mg/dl Creatinine 0.63 (0.6-1.4) mg/dl Est Cr Clr Drug Dosing 131.7 ml/min Est GFR ( Amer) 121.6 ml/min Est GFR (Non-Af Amer) 104.9 ml/min BUN/Creatinine Ratio 17.5 (10-20) Glucose 142 H (70-99(Fasting)) mg/dl POC Glucose 153 H (70-99) mg/dl Estimat Average Glucose mg/dl Hemoglobin A1c (4.5-5.6) % Lactate (0.4-2.0) mmol/L Calcium 8.3 L (8.6-10.3) mg/dl Magnesium 1.8 (1.7-2.4) mg/dl Total Bilirubin 1.0 (0.2-1.0) mg/dl AST 7 L (13-39) U/L ALT 7 (7-52) U/L Alkaline Phosphatase 78 (34-104) U/L Total Creatine Kinase (30-223) U/L C-Reactive Protein (0-0.5) mg/dl Total Protein 5.8 L D (6.0-8.3) gm/dl Albumin 3.0 L (3.4-5.0) gm/dl Globulin 2.8 (2.5-4.0) gm/dl Albumin/Globulin Ratio 1.1 (0.9-2) Triglycerides 74 (0-150) mg/dl Cholesterol 123 (0-200) mg/dl LDL Cholesterol, Calc 83 mg/dl VLDL Cholesterol, Calc 15 (0-30) mg/dl HDL Cholesterol 25 mg/dl Cholesterol/HDL Ratio 4.9 (0-5) Urine Color Urine Appearance (Clear) Urine pH (4.5-7.5) Ur Specific [place] (1.000-1.030) Urine Protein (Negative) Urine Glucose (UA) (Negative) Urine Ketones (Negative) Urine Blood (Negative) Urine Nitrite (Negative) Urine Bilirubin (Negative) Urine Urobilinogen (Negative) Ur Leukocyte Esterase (Negative) Hepatitis C Ab (EIA) 11/19/22 11/18/22 11/18/22 Range/Units 01:37 20:02 18:48 WBC (4.8-10.8) K/ul RBC (4.70-6.10) M/uL Hgb (14.0-18.0) g/dl Hct (42.0-52.0) % MCV (80.0-100.0) fL MCH (25.0-34.0) pg MCHC (32.0-36.0) g/dL RDW Std Deviation (36.4-46.3) fL RDW Coeff of Stephanie (11.5-14.5) % Plt Count (130-400) K/uL MPV (9.4-12.4) fL Immature Gran % (Auto) % Neut % (Auto) % Lymph % (Auto) % [place] % (Auto) % Eos % (Auto) % Baso % (Auto) % Neut # (Auto) (1.40-6.50) K/uL Lymph # (Auto) (1.2-3.4) K/uL [place] # (Auto) (0.11-0.59) K/uL Eos # (Auto) (0-0.50) K/uL Baso # (Auto) (0-0.2) K/uL Immature Gran # (Auto) (0.01-0.20) K/uL ESR (0-20) mm/hr Sodium (136-145) mmol/L Potassium (3.5-5.1) mmol/L Chloride (98-107) mmol/L Carbon Dioxide (21-32) mmol/L Anion Gap (3-11) BUN (6-23) mg/dl Creatinine (0.6-1.4) mg/dl Est Cr Clr Drug Dosing ml/min Est GFR ( Amer) ml/min Est GFR (Non-Af Amer) ml/min BUN/Creatinine Ratio (10-20) Glucose (70-99(Fasting)) mg/dl POC Glucose 129 H 216 H 184 H (70-99) mg/dl Estimat Average Glucose mg/dl Hemoglobin A1c (4.5-5.6) % Lactate (0.4-2.0) mmol/L Calcium (8.6-10.3) mg/dl Magnesium (1.7-2.4) mg/dl Total Bilirubin (0.2-1.0) mg/dl AST (13-39) U/L ALT (7-52) U/L Alkaline Phosphatase (34-104) U/L Total Creatine Kinase (30-223) U/L C-Reactive Protein (0-0.5) mg/dl Total Protein (6.0-8.3) gm/dl Albumin (3.4-5.0) gm/dl Globulin (2.5-4.0) gm/dl Albumin/Globulin Ratio (0.9-2) Triglycerides (0-150) mg/dl Cholesterol (0-200) mg/dl LDL Cholesterol, Calc mg/dl VLDL Cholesterol, Calc (0-30) mg/dl HDL Cholesterol mg/dl Cholesterol/HDL Ratio (0-5) Urine Color Urine Appearance (Clear) Urine pH (4.5-7.5) Ur Specific [place] (1.000-1.030) Urine Protein (Negative) Urine Glucose (UA) (Negative) Urine Ketones (Negative) Urine Blood (Negative) Urine Nitrite (Negative) Urine Bilirubin (Negative) Urine Urobilinogen (Negative) Ur Leukocyte Esterase (Negative) Hepatitis C Ab (EIA) 11/18/22 11/18/22 11/18/22 Range/Units 17:40 17:02 16:31 WBC (4.8-10.8) K/ul RBC (4.70-6.10) M/uL Hgb (14.0-18.0) g/dl Hct (42.0-52.0) % MCV (80.0-100.0) fL MCH (25.0-34.0) pg MCHC (32.0-36.0) g/dL RDW Std Deviation (36.4-46.3) fL RDW Coeff of Stephanie (11.5-14.5) % Plt Count (130-400) K/uL MPV (9.4-12.4) fL Immature Gran % (Auto) % Neut % (Auto) % Lymph % (Auto) % [place] % (Auto) % Eos % (Auto) % Baso % (Auto) % Neut # (Auto) (1.40-6.50) K/uL Lymph # (Auto) (1.2-3.4) K/uL [place] # (Auto) (0.11-0.59) K/uL Eos # (Auto) (0-0.50) K/uL Baso # (Auto) (0-0.2) K/uL Immature Gran # (Auto) (0.01-0.20) K/uL ESR (0-20) mm/hr Sodium (136-145) mmol/L Potassium (3.5-5.1) mmol/L Chloride (98-107) mmol/L Carbon Dioxide (21-32) mmol/L Anion Gap (3-11) BUN (6-23) mg/dl Creatinine (0.6-1.4) mg/dl Est Cr Clr Drug Dosing ml/min Est GFR ( Amer) ml/min Est GFR (Non-Af Amer) ml/min BUN/Creatinine Ratio (10-20) Glucose (70-99(Fasting)) mg/dl POC Glucose 187 H 318 H* (70-99) mg/dl Estimat Average Glucose mg/dl Hemoglobin A1c (4.5-5.6) % Lactate 1.2 (0.4-2.0) mmol/L Calcium (8.6-10.3) mg/dl Magnesium (1.7-2.4) mg/dl Total Bilirubin (0.2-1.0) mg/dl AST (13-39) U/L ALT (7-52) U/L Alkaline Phosphatase (34-104) U/L Total Creatine Kinase (30-223) U/L C-Reactive Protein (0-0.5) mg/dl Total Protein (6.0-8.3) gm/dl Albumin (3.4-5.0) gm/dl Globulin (2.5-4.0) gm/dl Albumin/Globulin Ratio (0.9-2) Triglycerides (0-150) mg/dl Cholesterol (0-200) mg/dl LDL Cholesterol, Calc mg/dl VLDL Cholesterol, Calc (0-30) mg/dl HDL Cholesterol mg/dl Cholesterol/HDL Ratio (0-5) Urine Color Urine Appearance (Clear) Urine pH (4.5-7.5) Ur Specific [place] (1.000-1.030) Urine Protein (Negative) Urine Glucose (UA) (Negative) Urine Ketones (Negative) Urine Blood (Negative) Urine Nitrite (Negative) Urine Bilirubin (Negative) Urine Urobilinogen (Negative) Ur Leukocyte Esterase (Negative) Hepatitis C Ab (EIA) 11/18/22 11/18/22 11/18/22 Range/Units 14:55 14:40 14:40 WBC (4.8-10.8) K/ul RBC (4.70-6.10) M/uL Hgb (14.0-18.0) g/dl Hct (42.0-52.0) % MCV (80.0-100.0) fL MCH (25.0-34.0) pg MCHC (32.0-36.0) g/dL RDW Std Deviation (36.4-46.3) fL RDW Coeff of Stephanie (11.5-14.5) % Plt Count (130-400) K/uL MPV (9.4-12.4) fL Immature Gran % (Auto) % Neut % (Auto) % Lymph % (Auto) % [place] % (Auto) % Eos % (Auto) % Baso % (Auto) % Neut # (Auto) (1.40-6.50) K/uL Lymph # (Auto) (1.2-3.4) K/uL [place] # (Auto) (0.11-0.59) K/uL Eos # (Auto) (0-0.50) K/uL Baso # (Auto) (0-0.2) K/uL Immature Gran # (Auto) (0.01-0.20) K/uL ESR 97 H (0-20) mm/hr Sodium (136-145) mmol/L Potassium (3.5-5.1) mmol/L Chloride (98-107) mmol/L Carbon Dioxide (21-32) mmol/L Anion Gap (3-11) BUN (6-23) mg/dl Creatinine (0.6-1.4) mg/dl Est Cr Clr Drug Dosing ml/min Est GFR ( Amer) ml/min Est GFR (Non-Af Amer) ml/min BUN/Creatinine Ratio (10-20) Glucose (70-99(Fasting)) mg/dl POC Glucose (70-99) mg/dl Estimat Average Glucose 272 mg/dl Hemoglobin A1c 11.1 H (4.5-5.6) % Lactate (0.4-2.0) mmol/L Calcium (8.6-10.3) mg/dl Magnesium (1.7-2.4) mg/dl Total Bilirubin (0.2-1.0) mg/dl AST (13-39) U/L ALT (7-52) U/L Alkaline Phosphatase (34-104) U/L Total Creatine Kinase (30-223) U/L C-Reactive Protein (0-0.5) mg/dl Total Protein (6.0-8.3) gm/dl Albumin (3.4-5.0) gm/dl Globulin (2.5-4.0) gm/dl Albumin/Globulin Ratio (0.9-2) Triglycerides (0-150) mg/dl Cholesterol (0-200) mg/dl LDL Cholesterol, Calc mg/dl VLDL Cholesterol, Calc (0-30) mg/dl HDL Cholesterol mg/dl Cholesterol/HDL Ratio (0-5) Urine Color Yellow Urine Appearance Clear (Clear) Urine pH 6.0 (4.5-7.5) Ur Specific [place] 1.044 H (1.000-1.030) Urine Protein Negative (Negative) Urine Glucose (UA) 3+ H (Negative) Urine Ketones Trace H (Negative) Urine Blood Negative (Negative) Urine Nitrite Negative (Negative) Urine Bilirubin Negative (Negative) Urine Urobilinogen Negative (Negative) Ur Leukocyte Esterase Negative (Negative) Hepatitis C Ab (EIA) 11/18/22 Range/Units 14:40 WBC (4.8-10.8) K/ul RBC (4.70-6.10) M/uL Hgb (14.0-18.0) g/dl Hct (42.0-52.0) % MCV (80.0-100.0) fL MCH (25.0-34.0) pg MCHC (32.0-36.0) g/dL RDW Std Deviation (36.4-46.3) fL RDW Coeff of Stephanie (11.5-14.5) % Plt Count (130-400) K/uL MPV (9.4-12.4) fL Immature Gran % (Auto) % Neut % (Auto) % Lymph % (Auto) % [place] % (Auto) % Eos % (Auto) % Baso % (Auto) % Neut # (Auto) (1.40-6.50) K/uL Lymph # (Auto) (1.2-3.4) K/uL [place] # (Auto) (0.11-0.59) K/uL Eos # (Auto) (0-0.50) K/uL Baso # (Auto) (0-0.2) K/uL Immature Gran # (Auto) (0.01-0.20) K/uL ESR (0-20) mm/hr Sodium 131 L (136-145) mmol/L Potassium 4.1 (3.5-5.1) mmol/L Chloride 94 L (98-107) mmol/L Carbon Dioxide 27 (21-32) mmol/L Anion Gap 10 (3-11) BUN 13 (6-23) mg/dl Creatinine 0.66 (0.6-1.4) mg/dl Est Cr Clr Drug Dosing 122.0 ml/min Est GFR ( Amer) 119.3 ml/min Est GFR (Non-Af Amer) 102.9 ml/min BUN/Creatinine Ratio 19.7 (10-20) Glucose 374 H* (70-99(Fasting)) mg/dl POC Glucose (70-99) mg/dl Estimat Average Glucose mg/dl Hemoglobin A1c (4.5-5.6) % Lactate (0.4-2.0) mmol/L Calcium 9.9 (8.6-10.3) mg/dl Magnesium 2.1 (1.7-2.4) mg/dl Total Bilirubin 1.3 H (0.2-1.0) mg/dl AST 12 L (13-39) U/L ALT 12 (7-52) U/L Alkaline Phosphatase 124 H (34-104) U/L Total Creatine Kinase 195 (30-223) U/L C-Reactive Protein 34.37 H (0-0.5) mg/dl Total Protein 8.3 (6.0-8.3) gm/dl Albumin 4.2 (3.4-5.0) gm/dl Globulin 4.1 H (2.5-4.0) gm/dl Albumin/Globulin Ratio 1.0 (0.9-2) Triglycerides (0-150) mg/dl Cholesterol (0-200) mg/dl LDL Cholesterol, Calc mg/dl VLDL Cholesterol, Calc (0-30) mg/dl HDL Cholesterol mg/dl Cholesterol/HDL Ratio (0-5) Urine Color Urine Appearance (Clear) Urine pH (4.5-7.5) Ur Specific [place] (1.000-1.030) Urine Protein (Negative) Urine Glucose (UA) (Negative) Urine Ketones (Negative) Urine Blood (Negative) Urine Nitrite (Negative) Urine Bilirubin (Negative) Urine Urobilinogen (Negative) Ur Leukocyte Esterase (Negative) Hepatitis C Ab (EIA) Diagnostic Findings Foot X-Ray 11/18/22 13:27 XR foot LT min 3V routine CLINICAL HISTORY: Left foot infection. COMPARISON: None FINDINGS: Alignment of the left foot is anatomic. Tarsometatarsal joints are intact. There is left first toe soft tissue swelling. Note is made of multifocal soft tissue gas within the left first toe which extends to the level of the midshaft of the first metatarsal. There is equivocal erosion of the plantar aspect of the distal phalanx of the left first toe. Lateral view demonstrates a skin defect consistent with wound along the plantar aspect of the interphalangeal joint of the left first toe. There are no acute fracture. IMPRESSION: 1. Left first toe wound with soft tissue swelling. Although the gas may be related to the wound, the findings raise the possibility of a gas-forming infectious process such as necrotizing fasciitis. 2. Possible erosion of the plantar aspect of the distal phalanx of the left first toe which raises the possibility of osteomyelitis. This can be assessed on CT which has been ordered. ACT 112: Negative or not required by law. Electronically signed by: Heron Phoenix M.D. 11/18/2022 3:[address] 11/18/22 15:15 CT foot LT w con HISTORY: 62 years-old Male gangrenous left great toe, DM ulcer chronic left foot pain with diabetic foot ulcer COMPARISON: Frontal radiographs of same day TECHNIQUE: Multiple axial CT images of the left foot were obtained following the intravenous administration of contrast. A dose lowering technique was used consistent with the principals of ALARA. FINDINGS: Air is present within the medullary space of the first distal phalanx and head of the first proximal phalanx. There is a acute pathologic intra-articular fracturing within the base of the first distal phalanx with subtle plantar cortical erosions (best seen on the sagittal images). Moderate subcutaneous edema with deep tissue air of the first digit. 1.6 cm plantar ulcer of the great toe. Mild osteoarthritis. Midfoot alignment is anatomic. No additional acute fracture, dislocation or osseous erosion identified. Subcentimeter chronic appearing osteochondral defect of the medial talar dome. No drainable abscess. Arterial calcifications. [id number] diffuse subcutaneous edema. IMPRESSION: 1. Osteonecrosis of the first proximal and distal phalanges with distal phalangeal osteomyelitis. 2. Plantar ulcer of the great toe with cellulitis. Associated deep tissue air may be secondary to direct communication from the wound versus necrotizing fasciitis. 3. Acute nondisplaced pathologic fracture of the first distal phalanx. ACT 112: Negative or not required by law. The above report was generated using voice recognition software. It may contain grammatical, syntax or spelling errors. Electronically signed by: Ángel Payne M.D. 11/18/2022 4:07 PM Venous Doppler Study 11/18/22 15:50 Exam(s): US VENOUS LEFT LOWER EXTREMITY EXAM: US Duplex Left Lower Extremity Veins CLINICAL HISTORY: Reason for exam: r/o dvt, +calf pain. TECHNIQUE: Real-time duplex ultrasound scan of the left lower extremity veins integrating B-mode two-dimensional vascular structure, Doppler spectral analysis, color flow Doppler imaging and compression. COMPARISON: No relevant prior studies available. FINDINGS: Veins: No DVT in the visualized veins, including the common femoral, superficial femoral, proximal deep femoral and popliteal veins. The veins demonstrate normal color flow, are normally compressible, with normal phasic flow and/or augmentation response. Soft tissues: No popliteal cyst. Left inguinal lymph node, 3.9 X 1.6 X 3.5 cm, not pathologically enlarged by size criteria, and maintains a normal fatty hilum. May be reactive. IMPRESSION: 1. No DVT. 2. Left inguinal lymph node, nonspecific, likely reactive. Electronically signed by: Pema Ferrell M.D. 11/19/22 02:11 AM Duplex Scan Lower Extremity Artery 11/18/22 16:21 Exam(s): US ARTERIAL LEFT LOWER EXTREMITY EXAM: US Duplex Left Lower Extremity Arteries CLINICAL HISTORY: Reason for exam: acute gangrenous toe, concerns thrombus. TECHNIQUE: Real-time duplex ultrasound scan of the left lower extremity arteries integrating B-mode two-dimensional vascular structure, Doppler spectral analysis and color flow Doppler imaging. COMPARISON: No relevant prior studies available. FINDINGS: Left common femoral artery: Mild atherosclerosis, with possible ulcerative plaque. No occlusion or significant stenosis on color flow and spectral Doppler imaging. Left superficial femoral artery: No stenosis or occlusion. Left popliteal artery: Elevated velocity, 205 cm/s. Left calf/foot arteries: Intermittent occluded anterior tibial artery, with short segment flow reversal. Low velocity distally 23 cm/s. Elevated velocities distal posterior tibial artery 172 cm/s. Monophasic waveforms. Patent dorsalis pedis artery. Soft tissues: Unremarkable. IMPRESSION: 1. Abnormal exam with intermittent occluded RILEY. 2. 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 3. Atherosclerosis with possible ulcerative plaque of the left FREELANCE RECRUITER. 4. Consider CTA runoff as indicated for further evaluation. Electronically signed by: Pema Ferrell M.D. 11/19/22 02:04 AM Chest X-Ray 11/18/22 16:28 SINGLE VIEW CHEST CLINICAL HISTORY: Preoperative examination FINDINGS: An AP, portable, upright chest radiograph is compared to study dated 09/03/2018. Correlation is made with chest CT dated 10/17/2021. The cardiomediastinal silhouette is top normal for projection. The pulmonary vasculature is noncongested. Chronic interstitial thickening is similar to previous. There is mild bibasilar scarring/atelectasis. The lungs and pleural spaces are otherwise clear. No pneumothorax is seen. The skeletal structures appear osteopenic. The bony thorax is grossly intact. IMPRESSION: No active disease in the chest. ACT 112: Negative or not required by law. Electronically signed by: Nura Rothman M.D. 11/18/2022 6:33 PM PG Care Time/CCT Total # of Minutes Spent Total Time Spent with Patient: Total time spent is greater than 50% in coordination of care (as documented) at patient's floor/unit and/or counseling patient: Coding Level of Care Code 09306 SUB INP/OBS CARE 3/50MIN Diagnoses Gangrenous toe I96 Sepsis A41.9 Osteomyelitis M86.9 Uncontrolled type 2 diabetes mellitus with insulin therapy E11.65; Z79.4 Hypertension I10 Hyperlipidemia E78.5 Esophageal reflux K21.9 Diabetic foot ulcer E11.621; L97.509
[2022-11-19 08:06] LABS: Basophils # (auto) 0.06 K/uL (0-0.2); Basophils % (auto) 0.5 %; Eosinophils # (auto) 0.11 K/uL (0-0.50); Hematocrit (blood only) 34.8 % (42.0-52.0); Hemoglobin 12.3 g/dl (14.0-18.0); Immature Granulocytes # (auto) 0.05 K/uL (0.01-0.20); Immature Granulocytes % (auto) 0.4 %; Lymphocytes # (auto) 1.71 K/uL (1.2-3.4); Lymphocytes % (auto) 15.1 %; Mean Corpuscular Hemoglobin 28.7 pg (25.0-34.0); Mean Corpuscular Hgb Conc 35.3 g/dL (32.0-36.0); Mean Corpuscular Volume 81.1 fL (80.0-100.0); Mean Platelet Volume 10.4 fL (9.4-12.4); Monocytes # (auto) 0.97 K/uL (0.11-0.59); Monocytes % (auto) 8.5 %; Neutrophils # (auto) 8.45 K/uL (1.40-6.50); Neutrophils % (auto) 74.5 %; Platelet Count 258 K/uL (130-400); RDW Standard Deviation 35.1 fL (36.4-46.3); Red Blood Count 4.29 M/uL (4.70-6.10); White Blood Count 11.35 K/ul (4.8-10.8)
[2022-11-19 08:16] LABS: Albumin Globulin Ratio 1.1 (0.9-2); BUN Creatinine Ratio 17.5 (10-20); Calcium 8.3 mg/dl (8.6-10.3); Chol HDL Ratio 4.9 (0-5); Creatinine Clr Calc Pharmacy 131.7 ml/min; Est GFR (African American) 121.6 ml/min; Est GFR (Non-African American) 104.9 ml/min; Globulin 2.8 gm/dl (2.5-4.0); Magnesium 1.8 mg/dl (1.7-2.4); Potassium 3.4 mmol/L (3.5-5.1); Total Protein 5.8 gm/dl (6.0-8.3)
[2022-11-19] MEDS: lisinopril 5 MG TAB PO SCH (08:40)
[2022-11-19] MEDS: LANTUS PER UNIT CHARGE SQ SCH ×2 (08:41→21:09)
[2022-11-19] MEDS ORDERED: POTASSIUM CHLORIDE CRTAB 20 MEQ TABCR PO STA (08:56)
[2022-11-19] MEDS: HEPARIN SOD 5,000 UNIT/0.5 ML VIAL SQ SCH ×2 (14:20→21:11)
--- NOTE | 2022-11-19 14:23 | Consultation ---
Date of Consultation November 19, 2022 Assessment & Plan (1) Osteomyelitis of ankle and foot: This patient has triphasic waveforms through the left popliteal artery. Below that he has biphasic waveforms from the popliteal distally. With no complaints of claudication prior to this and the biphasic waveforms, he should have enough flow to heal. I would give him a week or two to see if healing will occur. If it doesnt then we can consider arteriography. We will see him in the office in two weeks to evaluate healing. Thank you very much for letting us participate in the care of this patient. History of Present Illness Reason for Consultation: Abnormal arterial study Attending Physician: Brock Mason History of Present Illness This is a 62yo male with DM who has had an ulcer of his left great toe for the last year. His diabetes has been out of control. He was admitted with sepsis from his gangrenous left great toe. Ultrasound showed abnormal wave forms of the left lower extremity. He has no complaints of claudication, previous ulcerations, or rest pain. Allergies Allergy/AdvReac Type Severity Reaction Status Date / Time No Known Allergies Allergy Mild Verified 11/18/22 16:28 Home Medications Medication Instructions Recorded Confirmed Type cholecalciferol (vitamin D3) 50 4,000 unit PO HS 09/03/18 11/18/22 History mcg (2,000 unit) capsule (Vitamin D3) cyanocobalamin (vitamin B-12) 2,000 mcg PO QAM 09/03/18 11/18/22 History 2,000 mcg tablet,extended release (Vitamin B-12 ER) krill 1,000 mg-omega-3 170 mg-dha 1 cap PO QAM 09/03/18 11/18/22 History 50 mg-epa 80 [id number] capsule (krill oil) blood sugar diagnostic (OneTouch #10 ea 05/24/19 04/11/21 History Ultra Blue Test Strip) lancets (OneTouch UltraSoft #50 ea 05/24/19 04/11/21 History Lancets) aspirin 81 mg tablet,delayed 81 mg PO QAM 12/08/20 11/18/22 History release dulaglutide 1.5 mg/0.5 mL 1.5 mg (0.5 mL) subcut .COMPLEX 10/09/21 11/18/22 Rx subcutaneous pen injector #12 syringes (Trulicity) insulin aspart U-100 100 unit/mL 20 unit (0.2 mL) subcut .COMPLEX 10/09/21 11/18/22 Rx (3 mL) subcutaneous pen (Novolog #18 mL FlexPen U-100 Insulin aspart) insulin degludec 200 unit/mL (3 70 unit (0.35 mL) subcut HS #32 10/09/21 11/18/22 Rx mL) subcutaneous pen (Tresiba SYRINGES FlexTouch U-200 insulin) metformin 500 mg tablet,extended 1,000 mg PO BID #360 tabs 10/09/21 11/18/22 Rx release 24 hr pen needle, diabetic 32 gauge x #100 ea 10/09/21 10/09/21 Rx " (BD Ultra-Fine Clau Pen Needle) rosuvastatin 20 mg tablet 20 mg PO HS #90 tabs 10/09/21 11/18/22 Rx Patient History Medical History History of melanoma Hyperlipidemia Hypertension Uncontrolled type 2 diabetes mellitus with insulin therapy Surgical History History of colonoscopy with polypectomy History of melanoma excision Hx of vasectomy Family History Father Diabetes Mother Coronary heart disease Sister Cancer Other No family history of adverse response to anesthesia No pertinent family history Denies family history of Ovarian cancer Prostate cancer Breast cancer Colorectal cancer Social History Smoking Status: Never smoker Second Hand Exposure: No; Do You Dip or Chew Tobacco: No; Hx Alcohol Use: No Hx Substance Use: No Preferred Language: Korean Communication Ability: Effective Hearing Ability: Normal Portainer Operator Required: No Beliefs That Will Affect Care: None Current Living Situation: Spouse Current Living Situation Comment: X 2 current occupational status: employed Other Information That Helps Us Care for You: No Feels Safe at Home: Yes Safety Concerns: Feels Safe At This Time Childhood Exposure to Second-Hand Smoke: No Diet: regular caffeine: Yes during the past year weight has: remained stable Dental Care, Regularly: Yes Physical Activity Frequency: 5-6 Times per Week Seatbelt Use: always Sunscreen Use: Yes Assistive Devices: None Review of Systems Review of Systems: All systems reviewed & are unremarkable except as noted in HPI & below Physical Exam Constitutional: WD/WN, vitals as above Respiratory: normal respiratory effort; no respiratory distress Cardiovascular: Rate/Rhythm: regular rate and regular rhythm Vessels: femoral pulses present, posterior tibial pulses present (decreased in both feet) and dorsalis pedis pulses present (could not feel left due to dressing) Gastrointestinal (Abdomen): Inspection/Auscultation: abdomen normal to inspection; abdomen not distended Neurologic: CN's II-XI intact bilaterally and moves all extremities Psychiatric: Orientation: alert and oriented x 3 Results & Data Vital Signs (Past 12 Hours) Vital Signs Temp Pulse Resp BP Pulse Ox O2 Del Method 11/19/22 12:04 36.5 C 79 16 133/79 95 Room Air 11/19/22 08:10 36.5 C 75 16 133/85 98 Room Air 11/19/22 04:00 37.0 C 86 20 125/77 95 Room Air
--- NOTE | 2022-11-19 15:00 | Pharmacy Report ---
Pharmacy Glycemic Short Note 2 - Date of Service November 19, 2022 - Glycemic Short BSG Results (Last 24 hours): 11/18/22 11/18/22 11/18/22 14:40 16:31 17:40 Glucose 374 H* POC Glucose 318 H* 187 H 11/18/22 11/18/22 11/19/22 18:48 20:02 01:37 Glucose POC Glucose 184 H 216 H 129 H 11/19/22 11/19/22 11/19/22 04:40 07:33 07:41 Glucose 142 H POC Glucose 153 H 143 H 11/19/22 11:43 Glucose POC Glucose 151 H OUTPATIENT ANTIDIABETIC REGIMEN: * Tresiba 70 units Hs, metformin 1 gm BID, trulicity 1.5 mg weekly, Novolog 20 units TIDM + SS * A1c 11.1% ASSESSMENT: * BSG initially elevated on admission, trended down with addition of novolog/lantus * Given ~40% of home dose lantus last PM, BSG 143 mg/dL this morning. Will split lantus dosing for now with reduced total dose ~60-85% home dose. This equates to roughly weight based stress of 3 for lower end dosing * Novolog also initiated at weight based stress of 3 parameters PLAN FOR INPATIENT GLYCEMIC CONTROL: * Hold outpatient oral diabetes medications * Basal insulin * Lantus 20/30 units SQ BID * Bolus insulin * NovoLog per scale ACHS or Q6hrs while NPO * Goal Range: Low 110 mg/dL - High 140 mg/dL * Correction Factor: 20 mg/dL/unit * Nutritional / Prandial insulin per carb ratio of 1 unit per 7 grams CHO consumed
[2022-11-19] MEDS: DAPTOmycin 450 MG in SYRINGE 0 ML IV SCH (16:23)
[2022-11-19] MEDS: ASPIRIN 81 MG ECTAB PO SCH (21:11)
--- NOTE | 2022-11-19 22:23 | Orthopedic Progress Note ---
Date of Service November 19, 2022 Assessment & Plan (1) Osteomyelitis: Plan: Patient seen, evaluated and treated. Patient status post left first ray amputation Day#1 (DOS 11/18/22). Dressing changed moist 4x4 gauze, kerlix, Eduar. Patient will require delayed primary closure once infection has decreased. Will continue to follow while in house. (2) Gangrenous toe: (3) Sepsis: Admission and Anticipated Discharge Date Admission Date: November 18, 2022 Subjective Patient status post left first ray amputation Day#1 (DOS 11/18/22). He is resting comfortably at bedside. His is present who helps with history and care. Review of Systems Review of Systems: All systems reviewed & are unremarkable except as noted in Subjective Physical Exam Constitutional: cooperative and comfortable Eyes: normal visual hart by confrontation Neck: normal visual inspection Respiratory: normal respiratory effort Cardiovascular: Rate/Rhythm: regular rate, regular rhythm and + tachycardic (Slight) Musculoskeletal: Extremities: extremities normal to inspection Skin: + wound (Left first ray amputation site open) Neurologic: moves all extremities (Absent epicritic senstation) Psychiatric: Orientation: alert and oriented x 3 Results & Data Vital Signs (Past 12 Hours) Vital Signs Temp Pulse Pulse Resp BP BP Pulse Ox 11/19/22 20:03 37.5 C 89 16 142/74 H 97 11/19/22 14:10 83 11/19/22 15:26 36.7 C 97 H 16 138/82 95 11/19/22 12:04 36.5 C 79 16 133/79 95 O2 Del Method 11/19/22 20:03 Room Air 11/19/22 14:10 11/19/22 15:26 Room Air 11/19/22 12:04 Room Air
[2022-11-20] MEDS: INSULIN ASPART PER UNIT CHARGE SC SCH ×6 (00:25→20:24)
[2022-11-20] MEDS: PIPERACILLIN/TAZOBACTAM 4.5 GM in DEXTROSE 5% 100 ML IV SCH ×3 (04:21→20:24)
[2022-11-20] MEDS: ACETAMINOPHEN 325 MG TAB PO PRN (04:21)
[2022-11-20] MEDS: HEPARIN SOD 5,000 UNIT/0.5 ML VIAL SQ SCH ×3 (05:12→21:02)
[2022-11-20] MEDS: lisinopril 5 MG TAB PO SCH (08:47)
--- NOTE | 2022-11-20 09:57 | Infectious Disease Consult ---
Date of Consultation November 20, 2022 Assessment & Plan (1) Osteomyelitis: (2) Diabetic foot ulcer: (3) Uncontrolled type 2 diabetes mellitus with insulin therapy: Plan Micro: 11/18 OR L great toe cx: GBS. GS--rare GPCs 11/18 OR L great toe deep cx: GBS. GS--few GPCs, rare GNRs 11/18 L great toe swab cx: GBS. GS--many GPCs, rare GNRs 11/18 BCx x2: NGTD Antibiotics: Dapto 11/18 - 11/19 Pip-tazo 11/18 - present Problems: #L great toe osteomyelitis s/p amputation 11/18/22 #Poorly controlled DM 62 yo M with poorly controlled DM (A1c 11.1), HTN, HLD, reflux, melanoma who presented on 11/18 with left great toe discoloration in the setting of a chronic nonhealing wound on the plantar aspect of his toe for the last year, admitted with L great toe osteomyelitis. On presentation, Tmax 38.2, WBC 15.46, ESR 97, CRP 34.4, lactate 2.1, procalcitonin 0.48. CT left foot with contrast showed ost eonecrosis of the first proximal and distal phalanges with distal phalangeal osteomyelitis, plantar ulcer of the great toe with cellulitis with associated deep tissue air. Left lower extremity venous duplex showed no DVT. Left lower extremity arterial ultrasound showed intermittent occluded RILEY. Patient was started on Dapto, Zosyn. Podiatry was consulted and took patient to the OR on 11/18 evening for urgent left great toe amputation. Vascular surgery was consulted, felt he should have enough flow to heal. ID is consulted for antibiotic management. Left great toe cultures from the OR are growing group B strep. Gram stain showed GPC's and GNR's. Recommendations: -Per Dr. Ramirez, source control was achieved and no concern for residual osteomyelitis. Will therefore plan for shorter course of oral antibiotics to treat any residual skin/soft tissue infection. -Follow-up 11/18 OR cultures to see if GNR on gram stain is identified. -Continue pip-tazo for now. -Discontinued daptomycin. Discussed with primary team. Will continue to follow. Please page [facility] with further questions. Consultation Information This patient recommendation is based on a telemedicine consult request which was completed asynchronously through chart review and information provided by the primary physician. The patient was not seen or examined today. The evaluation is consultative in nature and all patient care and treatment decisions can either be accepted or rejected by the patient's primary hospital-based treating physician using their own independent medical judgment for their patient. Bonding Machine Setter contact information: Please call [facility] [phone]. (Phone Number For Physician Use Only) Time Spent Reviewing Chart: 31+ minutes History of Present Illness Reason for Consultation: L foot osteomyelitis s/p amputation Requesting Physician: EVELIA Valverde Attending Physician: Brock Mason History of Present Illness 62 yo M with poorly controlled DM (A1c 11.1), HTN, HLD, reflux, melanoma who presented on 11/18 with left great toe discoloration in the setting of a chronic nonhealing wound on the plantar aspect of his toe for the last year. On presentation, patient was afebrile, HR 111, hypertensive. He later became febrile to 38.2. Labs showed WBC 15.46, ESR 97, CRP 34.4, lactate 2.1, procalcitonin 0.48. XR left foot showed left first toe wound with soft tissue swelling, gas which may be related to the wound although raises possibility of gas-forming infectious process such as necrotizing fasciitis, possible erosion of the plantar aspect of the distal phalanx of the left first toe which raises the possibility of osteomyelitis. CT left foot with contrast showed osteonecrosis of the first proximal and distal phalanges with distal phalangeal osteomyelitis, plantar ulcer of the great toe with cellulitis with associated deep tissue air. Left lower extremity venous duplex showed no DVT. Left lower extremity arterial ultrasound showed intermittent occluded RILEY. Chest x-ray negative. Patient was started on Dapto, Zosyn. Podiatry was consulted and took patient to the OR on 11/18 evening for urgent left great toe amputation. Vascular surgery was consulted, felt he should have enough flow to heal. ID is consulted for antibiotic management. Left great toe cultures from the OR are growing group B strep. Gram stain showed GPC's and GNR's. Allergies Allergy/AdvReac Type Severity Reaction Status Date / Time No Known Allergies Allergy Mild Verified 11/18/22 16:28 Home Medications Medication Instructions Recorded Confirmed Type cholecalciferol (vitamin D3) 50 4,000 unit PO HS 09/03/18 11/18/22 History mcg (2,000 unit) capsule (Vitamin D3) cyanocobalamin (vitamin B-12) 2,000 mcg PO QAM 09/03/18 11/18/22 History 2,000 mcg tablet,extended release (Vitamin B-12 ER) krill 1,000 mg-omega-3 170 mg-dha 1 cap PO QAM 09/03/18 11/18/22 History 50 mg-epa 80 [id number] capsule (krill oil) blood sugar diagnostic (OneTouch #10 ea 05/24/19 04/11/21 History Ultra Blue Test Strip) lancets (OneTouch UltraSoft #50 ea 05/24/19 04/11/21 History Lancets) aspirin 81 mg tablet,delayed 81 mg PO QAM 12/08/20 11/18/22 History release dulaglutide 1.5 mg/0.5 mL 1.5 mg (0.5 mL) subcut .COMPLEX 10/09/21 11/18/22 Rx subcutaneous pen injector #12 syringes (Trulicity) insulin aspart U-100 100 unit/mL 20 unit (0.2 mL) subcut .COMPLEX 10/09/21 11/18/22 Rx (3 mL) subcutaneous pen (Novolog #18 mL FlexPen U-100 Insulin aspart) insulin degludec 200 unit/mL (3 70 unit (0.35 mL) subcut HS #32 10/09/21 11/18/22 Rx mL) subcutaneous pen (Tresiba SYRINGES FlexTouch U-200 insulin) metformin 500 mg tablet,extended 1,000 mg PO BID #360 tabs 10/09/21 11/18/22 Rx release 24 hr pen needle, diabetic 32 gauge x #100 ea 10/09/21 10/09/21 Rx /32" (BD Ultra-Fine Clau Pen Needle) rosuvastatin 20 mg tablet 20 mg PO HS #90 tabs 10/09/21 11/18/22 Rx Patient History Medical History History of melanoma Hyperlipidemia Hypertension Uncontrolled type 2 diabetes mellitus with insulin therapy Surgical History History of colonoscopy with polypectomy History of melanoma excision Hx of vasectomy Family History Father Diabetes Mother Coronary heart disease Sister Cancer Other No family history of adverse response to anesthesia No pertinent family history Denies family history of Ovarian cancer Prostate cancer Breast cancer Colorectal cancer Social History Smoking Status: Never smoker Second Hand Exposure: No; Do You Dip or Chew Tobacco: No; Hx Alcohol Use: No Hx Substance Use: No Preferred Language: Divehi Communication Ability: Effective Hearing Ability: Normal Community Development Director Required: No Beliefs That Will Affect Care: None Current Living Situation: Spouse Current Living Situation Comment: X 2 current occupational status: employed Other Information That Helps Us Care for You: No Feels Safe at Home: Yes Safety Concerns: Feels Safe At This Time Childhood Exposure to Second-Hand Smoke: No Diet: regular caffeine: Yes during the past year weight has: remained stable Dental Care, Regularly: Yes Physical Activity Frequency: 5-6 Times per Week Seatbelt Use: always Sunscreen Use: Yes Assistive Devices: None Review of System Patient not seen Physical Exam Physical Exam: Patient not seen Results & Data Vital Signs (Past 12 Hours) Vital Signs Temp Pulse Pulse Pulse Resp BP BP 11/20/22 07:50 36.2 C L 74 16 118/78 11/20/22 06:30 68 11/20/22 02:53 36.6 C 75 16 132/81 11/19/22 22:10 81 11/19/22 23:03 36.7 C 82 16 149/80 H Pulse Ox O2 Del Method 11/20/22 07:50 96 Room Air 11/20/22 06:30 11/20/22 02:53 98 Room Air 11/19/22 22:10 11/19/22 23:03 96 Room Air Diagnostic Findings Foot X-Ray 11/18/22 13:27 XR foot LT min 3V routine CLINICAL HISTORY: Left foot infection. COMPARISON: None FINDINGS: Alignment of the left foot is anatomic. Tarsometatarsal joints are intact. There is left first toe soft tissue swelling. Note is made of multifocal soft tissue gas within the left first toe which extends to the level of the midshaft of the first metatarsal. There is equivocal erosion of the plantar aspect of the distal phalanx of the left first toe. Lateral view demonstrates a skin defect consistent with wound along the plantar aspect of the interphalangeal joint of the left first toe. There are no acute fracture. IMPRESSION: 1. Left first toe wound with soft tissue swelling. Although the gas may be related to the wound, the findings raise the possibility of a gas-forming infectious process such as necrotizing fasciitis. 2. Possible erosion of the plantar aspect of the distal phalanx of the left firs t toe which raises the possibility of osteomyelitis. This can be assessed on CT which has been ordered. ACT 112: Negative or not required by law. Electronically signed by: Heron Phoenix M.D. 11/18/2022 3:[address] 11/18/22 15:15 CT foot LT w con HISTORY: 62 years-old Male gangrenous left great toe, DM ulcer chronic left foot pain with diabetic foot ulcer COMPARISON: Frontal radiographs of same day TECHNIQUE: Multiple axial CT images of the left foot were obtained following the intravenous administration of contrast. A dose lowering technique was used consistent with the principals of ARMANDO. FINDINGS: Air is present within the medullary space of the first distal phalanx and head of the first proximal phalanx. There is a acute pathologic intra-articular fracturing within the base of the first distal phalanx with subtle plantar cortical erosions (best seen on the sagittal images). Moderate subcutaneous edema with deep tissue air of the first digit. 1.6 cm plantar ulcer of the great toe. Mild osteoarthritis. Midfoot alignment is anatomic. No additional acute fracture, dislocation or osseous erosion identified. Subcentimeter chronic appearing osteochondral defect of the medial talar dome. No drainable abscess. Arterial calcifications. Mmdj-au-[id number] diffuse subcutaneous edema. IMPRESSION: 1. Osteonecrosis of the first proximal and distal phalanges with distal phalangeal osteomyelitis. 2. Plantar ulcer of the great toe with cellulitis. Associated deep tissue air may be secondary to direct communication from the wound versus necrotizing fasciitis. 3. Acute nondisplaced pathologic fracture of the first distal phalanx. ACT 112: Negative or not required by law. The above report was generated using voice recognition software. It may contain grammatical, syntax or spelling errors. Electronically signed by: Ángel Payne M.D. 11/18/2022 4:07 PM Venous Doppler Study 11/18/22 15:50 Exam(s): US VENOUS LEFT LOWER EXTREMITY EXAM: US Duplex Left Lower Extremity Veins CLINICAL HISTORY: Reason for exam: r/o dvt, +calf pain. TECHNIQUE: Real-time duplex ultrasound scan of the left lower extremity veins integrating B-mode two-dimensional vascular structure, Doppler spectral analysis, color flow Doppler imaging and compression. COMPARISON: No relevant prior studies available. FINDINGS: Veins: No DVT in the visualized veins, including the common femoral, superficial femoral, proximal deep femoral and popliteal veins. The veins demonstrate normal color flow, are normally compressible, with normal phasic flow and/or augmentation response. Soft tissues: No popliteal cyst. Left inguinal lymph node, 3.9 X 1.6 X 3.5 cm, not pathologically enlarged by size criteria, and maintains a normal fatty hilum. May be reactive. IMPRESSION: 1. No DVT. 2. Left inguinal lymph node, nonspecific, likely reactive. Electronically signed by: Pema Ferrell M.D. 11/19/22 02:11 AM Duplex Scan Lower Extremity Artery 11/18/22 16:21 Exam(s): US ARTERIAL LEFT LOWER EXTREMITY EXAM: US Duplex Left Lower Extremity Arteries CLINICAL HISTORY: Reason for exam: acute gangrenous toe, concerns thrombus. TECHNIQUE: Real-time duplex ultrasound scan of the left lower extremity arteries integrating B-mode two-dimensional vascular structure, Doppler spectral analysis and color flow Doppler imaging. COMPARISON: No relevant prior studies available. FINDINGS: Left common femoral artery: Mild atherosclerosis, with possible ulcerative plaque. No occlusion or significant stenosis on color flow and spectral Doppler imaging. Left superficial femoral artery: No stenosis or occlusion. Left popliteal artery: Elevated velocity, 205 cm/s. Left calf/foot arteries: Intermittent occluded anterior tibial artery, with short segment flow reversal. Low velocity distally 23 cm/s. Elevated velocities distal posterior tibial artery 172 cm/s. Monophasic waveforms. Patent dorsalis pedis artery. Soft tissues: Unremarkable. IMPRESSION: 1. Abnormal exam with intermittent occluded RILEY. 2. Elevated velocities popliteal artery and SLASHER. 3. Atherosclerosis with possible ulcerative plaque of the left DAIRY FARMER. 4. Consider CTA runoff as indicated for further evaluation. Electronically signed by: Pema Ferrell M.D. 11/19/22 02:04 AM Chest X-Ray 11/18/22 16:28 SINGLE VIEW CHEST CLINICAL HISTORY: Preoperative examination FINDINGS: An AP, portable, upright chest radiograph is compared to study dated 09/03/2018. Correlation is made with chest CT dated 10/17/2021. The cardiomediastinal silhouette is top normal for projection. The pulmonary vasculature is noncongested. Chronic interstitial thickening is similar to previous. There is mild bibasilar scarring/atelectasis. The lungs and pleural spaces are otherwise clear. No pneumothorax is seen. The skeletal structures appear osteopenic. The bony thorax is grossly intact. IMPRESSION: No active disease in the chest. ACT 112: Negative or not required by law. Electronically signed by: Nura Rothman M.D. 11/18/2022 6:33 PM Medications Administered Current Inpatient Medications Acetaminophen (Acetaminophen 325 Mg Tab) 650 mg PO Q4H PRN PRN Reason: Pain or Fever Stop: 12/18/22 19:24 Last Admin: 11/20/22 04:21 Dose: 650 mg Aspirin (Aspirin 81 Mg Ectab) 81 mg PO HS AUDIE Stop: 12/18/22 20:59 Last Admin: 11/19/22 21:11 Dose: 81 mg Dextrose (Dextrose 50% 50 Ml Syringe) 25 - 50 ml IV UD PRN; Protocol PRN Reason: Hypoglycemia Protocol Stop: 12/18/22 19:24 Glucagon (Glucagon For Inj 1 Mg Vial) 1 mg SQ UD PRN; Protocol PRN Reason: Hypoglycemia Protocol Stop: 12/18/22 19:24 Glucose (Glucose 10 Tab/Tube) 4 - 8 tab PO UD PRN; Protocol PRN Reason: Hypoglycemia Treatment Stop: 12/18/22 19:24 Glucose (Glucose 40% Gel 15 Gm Tube) 15 - 30 gm PO UD PRN; Protocol PRN Reason: Hypoglycemia Protocol Stop: 12/18/22 19:24 Heparin Sodium (Porcine) (Heparin Sod 5,000 Unit/0.5 Ml Vial) 5,000 units SQ Q8 AUDIE Stop: 12/19/22 13:59 Last Admin: 11/20/22 05:12 Dose: 5,000 units Hydralazine HCl (Hydralazine Hcl 20 Mg/Ml Vial) 10 mg IV Q8H PRN PRN Reason: hypertension Stop: 12/18/22 19:24 Daptomycin 450 mg/ Syringe 9 mls @ 4.5 mls/min IV Q24H AUDIE; Protocol Stop: 11/20/22 15:14 Last Admin: 11/19/22 16:23 Dose: 4.5 mls/min Piperacillin Sod/Tazobactam (Sod 4.5 gm/ Dextrose) 120 mls @ 30 mls/hr IV Q8H [facility]; Protocol Stop: 12/30/22 19:59 Last Infusion: 11/20/22 08:21 Dose: Infused Insulin Aspart (Insulin Aspart Per Unit Charge) 0 units SC ACHS [facility] Stop: 12/18/22 19:59 Last Admin: 11/20/22 08:48 Dose: 8 units Lisinopril (Lisinopril 5 Mg Tab) 5 mg PO QAM [facility] Stop: 12/19/22 08:59 Last Admin: 11/20/22 08:47 Dose: 5 mg Lorazepam (Lorazepam 0.5 Mg Tab) 0.5 mg PO Q8H PRN PRN Reason: anxiety Stop: 12/18/22 19:24 Miscellaneous (Carbohydrates For Hypoglycemia ) 15 - 30 gm PO UD PRN PRN Reason: Hypoglycemia Protocol Stop: 12/18/22 19:24 Miscellaneous Information (Pharmacy Glycemic Mgmt Consult) 1 each N/A UD PRN PRN Reason: Consult Stop: 12/18/22 19:24 Morphine Sulfate (Morphine Sulfate 2 Mg/Ml Carp) 1 mg IV Q4H PRN PRN Reason: mild to moderate pain Stop: 12/02/22 19:24 Morphine Sulfate (Morphine Sulfate 2 Mg/Ml Carp) 2 mg IV Q4H PRN PRN Reason: moderate to severe pain Stop: 12/02/22 19:24 Ondansetron HCl (Ondansetron Inj 2 Mg/Ml 2 Ml Vial) 4 mg IV Q6H PRN PRN Reason: Nausea Stop: 12/18/22 19:24
--- NOTE | 2022-11-20 13:06 | Pharmacy Report ---
Pharmacy Glycemic Short Note 2 - Date of Service November 20, 2022 - Glycemic Short BSG Results (Last 24 hours): 11/19/22 11/19/22 11/20/22 16:47 20:00 00:02 POC Glucose 174 H 230 H 88 11/20/22 11/20/22 11/20/22 04:16 04:17 04:49 POC Glucose 58 L* 69 L* 83 11/20/22 11/20/22 07:53 11:52 POC Glucose 85 116 H OUTPATIENT ANTIDIABETIC REGIMEN: * Tresiba 70 units Hs, metformin 1 gm BID, Trulicity 1.5 mg weekly, Novolog 20 units TIDM + SS HbA1c 11.1% (11/18/22) ASSESSMENT: 11/20/22 * POD #2 s/p left great toe amputation * BSGs reasonably well-controlled yesterday other than HS check > 200 mg/dL * Patient received 87 units of insulin (50 units of basal) * Hypoglycemic overnight (BSG of 58, 69 mg/dL) and fasting of 85 mg/dL * Will decrease basal today to provide up to 50% of yesterday's basal dose 11/19/22 * BSG initially elevated on admission, trended down with addition of novolog/lantus * Given ~40% of home dose lantus last PM, BSG 143 mg/dL this morning. Will split lantus dosing for now with reduced total dose ~60-85% home dose. This equates to roughly weight based stress of 3 for lower end dosing * Novolog also initiated at weight based stress of 3 parameters PLAN FOR INPATIENT GLYCEMIC CONTROL: * Hold outpatient oral diabetes medications * Basal insulin * Lantus 15-25 units SC HS * Bolus insulin * NovoLog per scale ACHS or Q6hrs while NPO * Goal Range: Low 110 mg/dL - High 140 mg/dL * Correction Factor: 25 mg/dL/unit * Nutritional / Prandial insulin per carb ratio of 1 unit per 7 grams CHO consumed
[2022-11-20] MEDS: ASPIRIN 81 MG ECTAB PO SCH (20:24)
[2022-11-20] MEDS ORDERED: LANTUS PER UNIT CHARGE SQ SCH (21:00)
--- NOTE | 2022-11-20 22:22 | Orthopedic Progress Note ---
Date of Service November 20, 2022 Assessment & Plan (1) Osteomyelitis: Plan: Patient seen, evaluated and treated. Patient status post left first ray amputation Day#2 (DOS 11/18/22). Dressing changed moist 4x4 gauze, kerlix, Eduar. Patient will require delayed primary closure scheduled 11/22. Thank you for allowing me to participate in this Patient's care. Will continue to follow (2) Gangrenous toe: (3) Sepsis: Admission and Anticipated Discharge Date Admission Date: November 18, 2022 Subjective Patient status post left first ray amputation Day#2 (DOS 11/18/22). Patient resting comfortably at bedside. Review of Systems Review of Systems: All systems reviewed & are unremarkable except as noted in Subjective Physical Exam Constitutional: cooperative and comfortable Eyes: normal visual hart by confrontation Neck: normal visual inspection Respiratory: normal respiratory effort Cardiovascular: Rate/Rhythm: regular rate, regular rhythm and + tachycardic (Slight) Musculoskeletal: Extremities: extremities normal to inspection Skin: + ulcer (Left plantar hallux full thickness DFU probes to bone), + wound (Left first ray amputation site open) and + erythema (diffuse Left foot ascending erythema) Neurologic: moves all extremities (Absent epicritic senstation) Psychiatric: Orientation: alert and oriented x 3 Results & Data Vital Signs (Past 12 Hours) Vital Signs Temp Pulse Pulse Resp BP Pulse Ox O2 Del Method 11/20/22 19:16 37.0 C 87 18 144/81 H 97 Room Air 11/20/22 14:09 101 H 11/20/22 15:40 36.6 C 84 16 127/72 95 Room Air 11/20/22 11:33 36.9 C 79 16 143/81 H 97 Room Air
--- NOTE | 2022-11-20 22:34 | Hospitalist Progress Note ---
Date of Service November 20, 2022 Assessment & Plan (1) Gangrenous toe: Plan: concerns for osteo given xray/exam w/ gangrenous LEFT first toe/DM foot ulcer on admission w/ WBC 15.4k, BSG 374, lactic 2.1, procal 0.48, ESR/CRP elevation to 97/34.37 CT ordered for further eval but suspect osteo/significant elevation in CRP/ESR to 34.37 and 97 respectively * 1. Osteonecrosis of the first proximal and distal phalanges with distal phalangeal osteomyelitis. * 2. Plantar ulcer of the great toe with cellulitis. Associated deep tissue air may be secondary to direct communication from the wound versus necrotizing fasciitis. * Acute nondisplaced pathologic fracture of the first distal phalanx. Placed on Zosyn/Dapto -- continuing given coverage for DM foot ulcer in uncontrolled diabetic (BSG 374 yesterday on initial labs) Blood cultures obtained on admission, pending Podiatry consulted POD# 2 s/p LEFT hallux amputation w/ Dr Ramirez last evening. EBL 5cc. Micro pending for L distal phalanx, deep cx sent and pending Monitor OR cultures/blood cultures Pain control as needed, antiemetics Diabetic diet, A1c elevated 11.1. WIll consult DM educator as well. 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 Consdider CTA runoff as indicated Vascular surgery consulted for this morning -- no claudication symptoms. Will monitor healing over next 2-3 weeks, if issues can consider arranging for angio. Continue ASA 81mg in meantime WBC downtrending Afebrile PT/OT consults to be obtained -- will place orders for today, NWB to L foot unless otherwise specified by Dr Ramirez -- to see this evening. Will need surgical shoe likely as well Heparin SQ for DVT prophylaxis added Plan to return to OR on 11/23 (2) Sepsis: Plan: Leukocytosis, tachycardia (sinus tachy on monitor) on admission with elevated lactic acid suspected due to acute gangrenous toe/osteomyelitis blood cultures/IV abx as outlined above, podiatry consulted WBC improving, afebrile, tx as outlined above. Blood cultures NGTD at present (3) Osteomyelitis: Plan: imaging supporting diagnosis, elevation in inflammatory markers. podiatry consulted as above for urgent amputation consult placed for ID for tomorrow for recs at discharge: appreciate input. Appears only will require IV antibiotics while inpatient as Dr. Ramirez removed infected tissue. followed by short course of oral antibiotics (4) Uncontrolled type 2 diabetes mellitus with insulin therapy: Plan: prior a1c 11s--> 9s but has been quite some time Elevated BSG on admission, given 10u IV insulin x 1, pharmacy consulted for glycemic management Suspect noncompliance at baseline A1c on repeat up to 11.1 DM educator consulted for today DM diet BSGs much improved and will continue to monitor. Rec'd to patient about better control to promote wound healing (5) Hypertension: Plan: Significant elevation in ER but asymptomatic from such, suspected 2nd to pain BP better today, 138/82 and will monitor for now in setting of pain but likely benefit from adding low dose lisinopril given diabetes (however no protein noted on UA on admission) Monitoring for now, hydralazine available prn (6) Hyperlipidemia: Plan: holding crestor on Dapto, CK 195 baseline obtained Lipid panel obtained given arterial study as above but actually not bad -- > TRG 74, Chl 123, LDL 83, HDL 25 and will continue current dose crestor once off the dapto to prevent rhabdo (7) Esophageal reflux: Plan: not on medication, not reporting any issues at present Elevated LFTs --> likely acute phase, no abdominal pain Repeat w/ normal levels, suspect 2nd to acute infection as above. No abd pain on exam (8) Diabetic foot ulcer: Plan: as above, need better glucose control, uncontrolled DM s/p amputation as above Admission and Anticipated Discharge Date Admission Date: November 18, 2022 Subjective Patient reports no new symptoms. Review of Systems Review of Systems: All systems reviewed & are unremarkable except as noted in HPI & below Physical Exam Physical Exam: General: sitting up in bed HEENT: head normocephalic, atraumatic Resp: cta, no w/c/r, on room air CV: regular rate/rhythm, GI: +BS, soft/NT Psych: cooperative with examination Neuro/MSK/Skin: no focal deficits/no slurred speech, CN intact grossly, following commands, strength equal throughout dressing to LEFT foot s/p hallux amputation c/d/i (did not remove today), no active drainage through dressing, able to wiggle toes no progression of lymphagitic streaking Results & Data Results & Data Vital Signs (Past 12 Hours) Vital Signs Temp Pulse Pulse Resp BP Pulse Ox O2 Del Method 11/20/22 19:16 37.0 C 87 18 144/81 H 97 Room Air 11/20/22 14:09 101 H 11/20/22 15:40 36.6 C 84 16 127/72 95 Room Air 11/20/22 11:33 36.9 C 79 16 143/81 H 97 Room Air PG Care Time/CCT Total # of Minutes Spent Total Time Spent with Patient: Total time spent is greater than 50% in coordination of care (as documented) at patient's floor/unit and/or counseling patient: Coding Level of Care Code 79770 SUB INP/OBS CARE 2/35MIN Diagnoses Gangrenous toe I96 Sepsis A41.9 Osteomyelitis M86.9 Uncontrolled type 2 diabetes mellitus with insulin therapy E11.65; Z79.4 Hypertension I10 Hyperlipidemia E78.5 Esophageal reflux K21.9 Diabetic foot ulcer E11.621; L97.509
[2022-11-21] MEDS: PIPERACILLIN/TAZOBACTAM 4.5 GM in DEXTROSE 5% 100 ML IV SCH ×3 (04:45→20:21)
[2022-11-21] MEDS: HEPARIN SOD 5,000 UNIT/0.5 ML VIAL SQ SCH ×3 (06:04→21:28)
[2022-11-21] MEDS: ACETAMINOPHEN 325 MG TAB PO PRN (08:36)
[2022-11-21] MEDS: lisinopril 5 MG TAB PO SCH (08:37)
[2022-11-21] MEDS: INSULIN ASPART PER UNIT CHARGE SC SCH ×4 (08:37→21:28)
[2022-11-21] MEDS ORDERED: LANTUS PER UNIT CHARGE SC SCH ×3 (09:00→21:00)
--- NOTE | 2022-11-21 09:00 | Hospitalist Progress Note ---
Date of Service November 21, 2022 Assessment & Plan (1) Gangrenous toe: Plan: concerns for sepsis secondary to osteo on admission, w/ gangrenous LEFT first toe/DM foot ulcer on admission CT foot 11/18/22 * 1. Osteonecrosis of the first proximal and distal phalanges with distal phalangeal osteomyelitis. * 2. Plantar ulcer of the great toe with cellulitis. Associated deep tissue air may be secondary to direct communication from the wound versus necrotizing fasciitis. * Acute nondisplaced pathologic fracture of the first distal phalanx. 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 Will monitor healing over next 2-3 weeks, if issues can consider arranging for angio. Continue ASA 81mg in meantime PT/OT consults to be obtained -- will place orders for today, NWB to L foot unless otherwise specified by Dr Jenkins -- to see this evening. Will need surgical shoe likely as well Heparin SQ for DVT prophylaxis added Plan to return to OR on 11/22 for secondary closure (2) Uncontrolled type 2 diabetes mellitus with insulin therapy: Plan: Diabetic diet, A1c elevated 11.1. WIll consult DM educator as well. Pharmacy c onsulted for glycemic control -- BSGs much improved DM diet BSGs much improved and will continue to monitor. Rec'd to patient about better control to promote wound healing (3) Hypertension: Plan: benefit from adding low dose lisinopril given diabetes (however no protein noted on UA on admission) Monitoring for now, hydralazine available prn (4) Hyperlipidemia: Plan: holding crestor on Dapto, CK 195 baseline obtained Lipid panel obtained given arterial study as above but actually not bad -- > TRG 74, Chl 123, LDL 83, HDL 25 and will continue current dose crestor once off the dapto to prevent rhabdo Admission and Anticipated Discharge Date Admission Date: November 18, 2022 Subjective pt is recovering well, for closure of surgical wound 11/22/22. no other complaints Physical Exam Physical Exam: cardiac is regular and lungs are clear foot is bandaged but cap refill is reasonable Results & Data Results & Data Vital Signs (Past 12 Hours) Vital Signs Temp Pulse Pulse Resp BP BP Pulse Ox 11/21/22 07:35 99.1 F 75 16 142/85 H 90 11/21/22 03:33 98.4 F 82 20 122/73 96 11/20/22 22:00 92 H 11/20/22 22:39 98.2 F 85 16 123/69 96 O2 Del Method 11/21/22 07:35 Room Air 11/21/22 03:33 Room Air 11/20/22 22:00 11/20/22 22:39 Room Air PG Care Time/CCT Total # of Minutes Spent Total Time Spent with Patient: Total time spent is greater than 50% in coordination of care (as documented) at patient's floor/unit and/or counseling patient: Coding Level of Care Code 02738 SUB INP/OBS CARE 2/35MIN Diagnoses Gangrenous toe I96 Uncontrolled type 2 diabetes mellitus with insulin therapy E11.65; Z79.4 Hypertension I10 Hyperlipidemia E78.5
--- NOTE | 2022-11-21 10:55 | Pharmacy Report ---
Pharmacy Glycemic Short Note 2 - Date of Service November 21, 2022 - Glycemic Short BSG Results (Last 24 hours): 11/20/22 11/20/22 11/20/22 11:52 16:43 20:12 POC Glucose 116 H 127 H 215 H 11/21/22 07:57 POC Glucose 162 H OUTPATIENT ANTIDIABETIC REGIMEN: * Tresiba 70 units Hs, metformin 1 gm BID, Trulicity 1.5 mg weekly, Novolog 20 units TIDM + SS HbA1c 11.1% (11/18/22) ASSESSMENT: 11/21/22: * BSGs yesterday were 00-602-553-215 mg/dl yesterday. Patient received 25 units basal and 32 untis bolus yesterday. * Fasting BSG today = 162 mg/dl. Basal dose was reduced 50% yesterday, will increase back up by 80% from yesterday's dose today. Basal 10 units ordered this AM and ongoing ordered 35 units at HS (which is still 50% reduced from home dose). * Patient's food intake has improved, Novolog parameters tightened slightly. 11/20/22 * POD #2 s/p left great toe amputation * BSGs reasonably well-controlled yesterday other than HS check > 200 mg/dL * Patient received 87 units of insulin (50 units of basal) * Hypoglycemic overnight (BSG of 58, 69 mg/dL) and fasting of 85 mg/dL * Will decrease basal today to provide up to 50% of yesterday's basal dose 11/19/22 * BSG initially elevated on admission, trended down with addition of novolog/lantus * Given ~40% of home dose lantus last PM, BSG 143 mg/dL this morning. Will split lantus dosing for now with reduced total dose ~60-85% home dose. This equates to roughly weight based stress of 3 for lower end dosing * Novolog also initiated at weight based stress of 3 parameters PLAN FOR INPATIENT GLYCEMIC CONTROL: * Hold outpatient oral diabetes medications * Basal insulin * Lantus 10 units x1 this AM * Lantus 35 units SQ HS * Bolus insulin * NovoLog per scale ACHS or Q6hrs while NPO * Goal Range: Low 110 mg/dL - High 140 mg/dL * Correction Factor: 20 mg/dL/unit * Nutritional / Prandial insulin per carb ratio of 1 unit per 6 grams CHO consumed
[2022-11-21] MEDS ORDERED: LOPERAMIDE HCL 2 MG CAP PO STA (11:48)
[2022-11-21] MEDS: LOPERAMIDE HCL 2 MG CAP PO PRN (20:26)
[2022-11-21] MEDS: ASPIRIN 81 MG ECTAB PO SCH (21:28)
[2022-11-21] MEDS ORDERED: LANTUS PER UNIT CHARGE SC ONE (21:30)
[2022-11-22] MEDS: INSULIN ASPART PER UNIT CHARGE SC SCH ×4 (01:25→18:07)
[2022-11-22] MEDS: PIPERACILLIN/TAZOBACTAM 4.5 GM in DEXTROSE 5% 100 ML IV SCH ×2 (04:05→12:24)
[2022-11-22] MEDS: HEPARIN SOD 5,000 UNIT/0.5 ML VIAL SQ SCH ×3 (04:21→19:56)
[2022-11-22] MEDS: ACETAMINOPHEN 325 MG TAB PO PRN ×2 (08:35→20:58)
[2022-11-22] MEDS: lisinopril 5 MG TAB PO SCH (08:36)
--- NOTE | 2022-11-22 10:12 | Pharmacy Report ---
Pharmacy Glycemic Short Note 2 - Date of Service November 22, 2022 - Glycemic Short BSG Results (Last 24 hours): 11/21/22 11/21/22 11/21/22 12:12 17:00 20:30 POC Glucose 147 H 133 H 211 H 11/22/22 11/22/22 00:33 06:27 POC Glucose 176 H 145 H OUTPATIENT ANTIDIABETIC REGIMEN: * Tresiba 70 units Hs, metformin 1 gm BID, Trulicity 1.5 mg weekly, Novolog 20 units TIDM + SS HbA1c 11.1% (11/18/22) ASSESSMENT: 11/22/22: * BSG's adequate yesterday, except for HS, which was >200 mg/dL. This is a consistent trend. Plan to tighten CHO ratio with dinner, but patient currently NPO for OR today (secondary closure). Will consider doing so once diet resumed. * AM fasting good this AM. If patient remains NPO, will reduce Lantus dose tonight. PM administration is consistent with outpatient schedule. 11/21/22: * BSGs yesterday were [phone] mg/dl yesterday. Patient received 25 units basal and 32 untis bolus yesterday. * Fasting BSG today = 162 mg/dl. Basal dose was reduced 50% yesterday, will incr ease back up by 80% from yesterday's dose today. Basal 10 units ordered this AM and ongoing ordered 35 units at HS (which is still 50% reduced from home dose). * Patient's food intake has improved, Novolog parameters tightened slightly. 11/20/22 * POD #2 s/p left great toe amputation * BSGs reasonably well-controlled yesterday other than HS check > 200 mg/dL * Patient received 87 units of insulin (50 units of basal) * Hypoglycemic overnight (BSG of 58, 69 mg/dL) and fasting of 85 mg/dL * Will decrease basal today to provide up to 50% of yesterday's basal dose 11/19/22 * BSG initially elevated on admission, trended down with addition of novolog/lantus * Given ~40% of home dose lantus last PM, BSG 143 mg/dL this morning. Will split lantus dosing for now with reduced total dose ~60-85% home dose. This equates to roughly weight based stress of 3 for lower end dosing * Novolog also initiated at weight based stress of 3 parameters PLAN FOR INPATIENT GLYCEMIC CONTROL: * Hold outpatient oral diabetes medications * Basal insulin * Lantus 20-30 units SQ HS, depending on diet and BSG * Bolus insulin * NovoLog per scale ACHS or Q6hrs while NPO * Goal Range: Low 110 mg/dL - High 140 mg/dL * Correction Factor: 20 mg/dL/unit * Nutritional / Prandial insulin per carb ratio of 1 unit per 6 grams CHO consumed
--- NOTE | 2022-11-22 10:50 | Infectious Disease Progress Nt ---
Date of Service November 22, 2022 Assessment & Plan (1) Osteomyelitis: (2) Diabetic foot ulcer: (3) Uncontrolled type 2 diabetes mellitus with insulin therapy: Plan Micro: 11/18 OR L great toe cx: GBS, MSSA (S clinda, tetra, TMP/SMX), low counts of probable skin jerrica. GS--rare GPCs 11/18 OR L great toe deep cx: GBS, low counts of probable skin jerrica. GS--few GPCs, rare GNRs 11/18 L great toe swab cx: GBS, yeast not C albicans/db, moderate probable skin jerrica. GS--many GPCs, rare GNRs 11/18 BCx x2: NGTD Path: 11/18 Toe, left great, amputation: - Variably osteonecrotic bone with acute inflammation consistent with clinical impression of osteomyelitis. Ulcer. Soft tissue necrosis with atherosclerosis. Antibiotics: Dapto 11/18 - 11/19 Pip-tazo 11/18 - present Problems: #L great toe osteomyelitis s/p amputation 11/18/22 #Poorly controlled DM 62 yo M with poorly controlled DM (A1c 11.1), HTN, HLD, reflux, melanoma who presented on 11/18 with left great toe discoloration in the setting of a chronic nonhealing wound on the plantar aspect of his toe for the last year, admitted wi th L great toe osteomyelitis. On presentation, Tmax 38.2, WBC 15.46, ESR 97, CRP 34.4, lactate 2.1, procalcitonin 0.48. CT left foot with contrast showed osteonecrosis of the first proximal and distal phalanges with distal phalangeal osteomyelitis, plantar ulcer of the great toe with cellulitis with associated deep tissue air. Left lower extremity venous duplex showed no DVT. Left lower extremity arterial ultrasound showed intermittent occluded RILEY. Patient was started on Dapto, Zosyn. Podiatry was consulted and took patient to the OR on 11/18 evening for urgent left great toe amputation. Vascular surgery was consulted, felt he should have enough flow to heal. ID is consulted for antibiotic management. Left great toe cultures from the OR grew group B strep, MSSA, yeast. Gram stain showed GPC's and GNR's. Per Dr. Ramirez, source control was achieved and no concern for residual osteomyelitis. Pt was taken back to OR on 11/22 for delayed primary closure. Recommendations: -Presuming that there are no OR findings today concerning for residual osteomyelitis: Given surgical cure, can transition to PO antibiotics to treat any residual skin/soft tissue infection. Discontinued pip-tazo and started cefuroxime 500 mg PO q12h to complete a 7 day course from amputation through 11/25/22. (Can extend course if concern for extensive residual cellulitis) Will sign off. Please page [facility] with further questions. Admission and Anticipated Discharge Date Admission Date: November 18, 2022 Subjective This patient recommendation is based on a telemedicine consult request which was completed asynchronously through chart review and information provided by the primary physician. The patient was not seen or examined today. The evaluation is consultative in nature and all patient care and treatment decisions can either be accepted or rejected by the patient's primary hospital-based treating physician using their own independent medical judgment for their patient. Time Spent Reviewing Chart: 11 - 20 minutes To OR today for closure 11/18 OR cultures growing GBS, MSSA, yeast Review of System pt not seen Physical Exam Physical Exam: Patient not seen Results & Data Vital Signs (Past 12 Hours) Vital Signs Temp Pulse Pulse Resp BP Pulse Ox O2 Del Method 11/22/22 08:00 64 11/22/22 07:34 37.0 C 87 16 134/79 96 Room Air 11/22/22 03:14 36.7 C 82 20 151/74 H 95 Room Air 11/21/22 23:49 36.8 C 77 20 125/67 97 Room Air Medications Administered Current Inpatient Medications Acetaminophen (Acetaminophen 325 Mg Tab) 650 mg PO Q4H PRN PRN Reason: Pain or Fever Stop: 12/18/22 19:24 Last Admin: 11/22/22 08:35 Dose: 650 mg Aspirin (Aspirin 81 Mg Ectab) 81 mg PO HS AUDIE Stop: 12/18/22 20:59 Last Admin: 11/21/22 21:28 Dose: 81 mg Dextrose (Dextrose 50% 50 Ml Syringe) 25 - 50 ml IV UD PRN; Protocol PRN Reason: Hypoglycemia Protocol Stop: 12/18/22 19:24 Glucagon (Glucagon For Inj 1 Mg Vial) 1 mg SQ UD PRN; Protocol PRN Reason: Hypoglycemia Protocol Stop: 12/18/22 19:24 Glucose (Glucose 10 Tab/Tube) 4 - 8 tab PO UD PRN; Protocol PRN Reason: Hypoglycemia Treatment Stop: 12/18/22 19:24 Glucose (Glucose 40% Gel 15 Gm Tube) 15 - 30 gm PO UD PRN; Protocol PRN Reason: Hypoglycemia Protocol Stop: 12/18/22 19:24 Heparin Sodium (Porcine) (Heparin Sod 5,000 Unit/0.5 Ml Vial) 5,000 units SQ Q8 AUDIE Stop: 12/19/22 13:59 Last Admin: 11/22/22 04:21 Dose: Not Given Hydralazine HCl (Hydralazine Hcl 20 Mg/Ml Vial) 10 mg IV Q8H PRN PRN Reason: hypertension Stop: 12/18/22 19:24 Piperacillin Sod/Tazobactam (Sod 4.5 gm/ Dextrose) 120 mls @ 30 mls/hr IV Q8H [facility]; Protocol Stop: 12/30/22 19:59 Last Infusion: 11/22/22 08:11 Dose: Infused Insulin Aspart (Insulin Aspart Per Unit Charge) 0 units SC Q6 [facility] Stop: 12/22/22 00:00 Last Admin: 11/22/22 06:38 Dose: 1 units Insulin Glargine (Lantus Per Unit Charge) 0 units SC HS [facility]; Protocol Stop: 12/22/22 20:59 Lisinopril ([facility] 5 Mg Tab) [facility] Stop: 12/19/22 08:59 Last Admin: 11/22/22 08:36 Dose: 5 mg Loperamide HCl (Loperamide Hcl 2 Mg Cap) 2 mg PO Q4H PRN PRN Reason: Diarrhea Stop: 12/21/22 11:47 Last Admin: 11/21/22 20:26 Dose: 2 mg Lorazepam (Lorazepam 0.5 Mg Tab) 0.5 mg PO Q8H PRN PRN Reason: anxiety Stop: 12/18/22 19:24 Miscellaneous (Carbohydrates For Hypoglycemia ) 15 - 30 gm PO UD PRN PRN Reason: Hypoglycemia Protocol Stop: 12/18/22 19:24 Miscellaneous Information (Pharmacy Glycemic Mgmt Consult) 1 each N/A UD PRN PRN Reason: Consult Stop: 12/18/22 19:24 Morphine Sulfate (Morphine Sulfate 2 Mg/Ml Carp) 1 mg IV Q4H PRN PRN Reason: mild to moderate pain Stop: 12/02/22 19:24 Morphine Sulfate (Morphine Sulfate 2 Mg/Ml Carp) 2 mg IV Q4H PRN PRN Reason: moderate to severe pain Stop: 12/02/22 19:24 Ondansetron HCl (Ondansetron Inj 2 Mg/Ml 2 Ml Vial) 4 mg IV Q6H PRN PRN Reason: Nausea Stop: 12/18/22 19:24
[2022-11-22] MEDS ORDERED: MIDAZOLAM HCL 1 MG/ML 2ML VIAL ONE (15:59)
[2022-11-22] MEDS ORDERED: fentaNYL citrate PF 100 MCG/2 ML VIAL ONE (15:59)
[2022-11-22] MEDS ORDERED: ONDANSETRON INJ 2 MG/ML 2 ML VIAL ONE (16:01)
[2022-11-22] MEDS ORDERED: PROPOFOL IV EMULSION 10 MG/ML 20 ML VIAL IV ONE ×2 (16:01→17:12)
[2022-11-22] MEDS ORDERED: LIDOCAINE 2% 2 ML VIAL/AMP(20MG/ML) INFIL ONE (16:01)
--- NOTE | 2022-11-22 16:02 | Anesthesiology Consultation ---
Date of Service November 22, 2022 Assessment & Plan (1) Encounter for pre-operative examination: Chart Review Chart Review: Acceptable Risk for Surgery and Patient NOT seen in Pre Admission Testing Consults Requested none History Surgery Operation Date: 11/18/22 12:55 Proposed Procedures p Left Great Toe Amputation - Gordon Ramirez DPM, Operation Date: 11/22/22 07:00 Proposed Procedures p Left Foot Secondary Closure of Wound - Gordon Ramirez DPM, MS Height/Weight Height: 6 ft Weight: 88.2 kg Allergies Allergy/AdvReac Type Severity Reaction Status Date / Time No Known Allergies Allergy Mild Verified 11/18/22 16:28 Medications Home Medications Medication Instructions Recorded Confirmed Last Taken cholecalciferol (vitamin D3) 50 4,000 unit PO HS 09/03/18 11/18/22 11/17/22 mcg (2,000 unit) capsule (Vitamin D3) cyanocobalamin (vitamin B-12) 2,000 mcg PO QAM 09/03/18 11/18/22 11/18/22 2,000 mcg tablet,extended release (Vitamin B-12 ER) krill 1,000 mg-omega-3 170 mg-dha 1 cap PO QAM 09/03/18 11/18/22 12/08/20 50 mg-epa 80 an-qncnza-lcffz capsule (krill oil) blood sugar diagnostic (OneTouch #10 ea 05/24/19 04/11/21 Unknown Ultra Blue Test Strip) lancets (OneTouch UltraSoft #50 ea 05/24/19 04/11/21 Unknown Lancets) aspirin 81 mg tablet,delayed 81 mg PO QAM 12/08/20 11/18/22 11/14/22 release dulaglutide 1.5 mg/0.5 mL 1.5 mg (0.5 mL) subcut .COMPLEX 10/09/21 11/18/22 11/16/22 subcutaneous pen injector #12 syringes (Trulicity) insulin aspart U-100 100 unit/mL 20 unit (0.2 mL) subcut .COMPLEX 10/09/21 11/18/22 11/18/22 (3 mL) subcutaneous pen (Novolog #18 mL FlexPen U-100 Insulin aspart) insulin degludec 200 unit/mL (3 70 unit (0.35 mL) subcut HS #32 10/09/21 11/18/22 11/17/22 mL) subcutaneous pen (Tresiba SYRINGES FlexTouch U-200 insulin) metformin 500 mg tablet,extended 1,000 mg PO BID #360 tabs 10/09/21 11/18/22 11/18/22 release 24 hr pen needle, diabetic 32 gauge x #100 ea 10/09/21 10/09/21 Unknown " (BD Ultra-Fine Clau Pen Needle) rosuvastatin 20 mg tablet 20 mg PO HS #90 tabs 10/09/21 11/18/22 11/17/22 Active Medications Generic Name Dose Route Start Last Admin Trade Name Freq PRN Reason Stop Dose Admin Acetaminophen 650 mg 11/18/22 19:25 11/22/22 08:35 Acetaminophen 325 Mg Tab PO 12/18/22 19:24 650 mg Q4H PRN Administration Pain or Fever Aspirin 81 mg 11/18/22 21:00 11/21/22 21:28 Aspirin 81 Mg Ectab PO 12/18/22 20:59 81 mg HS AUDIE Administration Heparin Sodium (Porcine) 5,000 units 11/19/22 14:00 11/22/22 14:25 Heparin Sod 5,000 Unit/0.5 Ml Vial SQ 12/19/22 13:59 Not Given Q8 AUDIE Piperacillin Sod/Tazobactam 120 mls @ 30 mls/hr 11/18/22 20:00 11/22/22 16:02 Sod 4.5 gm/ Dextrose IV 12/30/22 19:59 Infused Q8H [facility] Infusion Protocol Insulin Aspart 0 units 11/22/22 00:00 11/22/22 12:20 Insulin Aspart Per Unit Charge SC 12/22/22 00:00 Not Given Q6 AUDIE Lisinopril 5 mg 11/19/22 09:00 11/22/22 08:36 Lisinopril 5 Mg Tab PO 12/19/22 08:59 5 mg QAM AUDIE Administration Loperamide HCl 2 mg 11/21/22 11:48 11/21/22 20:26 Loperamide Hcl 2 Mg Cap PO 12/21/22 11:47 2 mg Q4H PRN Administration Diarrhea Past Medical History Medical History History of melanoma Hyperlipidemia Hypertension Uncontrolled type 2 diabetes mellitus with insulin therapy Past Family History Family History Father Diabetes Mother Coronary heart disease Sister Cancer Other No family history of adverse response to anesthesia No pertinent family history Denies family history of Ovarian cancer Prostate cancer Breast cancer Colorectal cancer Past Surgical History Surgical History History of colonoscopy with polypectomy History of melanoma excision Hx of vasectomy Social History Smoking Status: Never smoker Do You Dip or Chew Tobacco: No Hx Alcohol Use: No Alcohol type: beer and hard liquor alcohol intake frequency: a few times a week Hx Substance Use: No substance use type: does not use Physical Exam Vital Signs Last Vital Signs Temp 36.8 C 11/22/22 12:18 Pulse 71 11/22/22 12:18 Resp 16 11/22/22 12:18 BP 121/75 11/22/22 12:18 Pulse Ox 98 11/22/22 12:18 O2 Del Method Room Air 11/22/22 12:18 O2 Flow Rate 6 11/18/22 18:43 Testing Laboratory Results 11/19/22 07:33 11/19/22 07:33 PT 11.1 Seconds (9.0-12.0) 11/18/22 14:40 INR 1.0 (0.9-1.1) 11/18/22 14:40 APTT 30.5 Seconds (21.0-31.0) 11/18/22 14:40 Hemoglobin A1c 11.1 % (4.5-5.6) H 11/18/22 14:40 Urine Color Yellow 11/18/22 14:55 Urine Appearance Clear (Clear) 11/18/22 14:55 Urine pH 6.0 (4.5-7.5) 11/18/22 14:55 Ur Specific [place] 1.044 (1.000-1.030) H 11/18/22 14:55 Urine Protein Negative (Negative) 11/18/22 14:55 Urine Glucose (UA) 3+ (Negative) H 11/18/22 14:55 Urine Ketones Trace (Negative) H 11/18/22 14:55 Urine Nitrite Negative (Negative) 11/18/22 14:55 Ur Leukocyte Esterase Negative (Negative) 11/18/22 14:55 11/18/22 Unknown Gram Stain - Final Toe,Left Great Aerobic and Anaerobic Culture - Preliminary Group B Beta Strep Staphylococcus aureus 11/18/22 Unknown Gram Stain - Final Toe,Left Great Aerobic and Anaerobic Culture - Preliminary Group B Beta Strep 11/18/22 Unknown Gram Stain - Final Toe,Left Great Wound Culture - Final Group B Beta Strep Yeast not Shruti albicans/dub 11/18/22 14:15 Aerobic Blood Culture - Preliminary Blood No growth in Aerobic bottle after 48 hours. Anaerobic Blood Culture - Preliminary No growth in Anaerobic bottle after 48 hours. 11/18/22 14:40 Aerobic Blood Culture - Preliminary Blood No growth in Aerobic bottle after 48 hours. Anaerobic Blood Culture - Preliminary No growth in Anaerobic bottle after 48 hours. 11/22/22 11/22/22 12:14 06:27 POC Glucose 117 H 145 H
[2022-11-22] MEDS ORDERED: HYDROmorphone INJ 1 MG/ML SYRINGE IV PRN (16:11)
[2022-11-22] MEDS ORDERED: fentaNYL citrate PF 100 MCG/2 ML VIAL IV PRN (16:11)
[2022-11-22] MEDS ORDERED: ePHEDrine sulfate 50 MG/ML AMP IV PRN (16:11)
[2022-11-22] MEDS ORDERED: ATROPINE SULFATE 0.1 MG/ML 10ML SYR IV PRN (16:11)
[2022-11-22] MEDS ORDERED: ONDANSETRON INJ 2 MG/ML 2 ML VIAL IV PRN (16:11)
--- NOTE | 2022-11-22 16:30 | History & Physical Bridge Note ---
Date of Service November 22, 2022 History & Physical Bridge Note I have examined the patient, reviewed the History & Physical and in the interval since the performance of the History & Physical I have noted the following changes of clinical significance: no changes noted
--- NOTE | 2022-11-22 17:25 | Post Operative Brief Note ---
Immediate Post Op Note v1 Date of Surgery November 22, 2022 Pre & Post Diagnosis Operation Date: 11/22/22 07:00 Pre-Op Diagnosis: GANGRENOUS TOE, CONCERNS FOR OSTEO Post-Op Diagnosis: GANGRENOUS TOE, CONCERNS FOR OSTEO I identified the patient and participated in the time-out.: Yes Procedure Operation Date: 11/22/22 07:00 Actual Procedures p Left Foot Secondary Closure of Wound(Left) - Gordon Ramirez DPM, MS Surgeon Gordon Ramirez DPM, MS Blister Pack Operator None Estimated Blood Loss 0 Findings Consistent with Post-Op Diagnosis NOne
--- NOTE | 2022-11-22 17:31 | Hospitalist Progress Note ---
Date of Service November 22, 2022 Assessment & Plan (1) Gangrenous toe: Plan: concerns for sepsis secondary to osteo on admission, w/ gangrenous LEFT first toe/DM foot ulcer on admission CT foot 11/18/22 * 1. Osteonecrosis of the first proximal and distal phalanges with distal phalangeal osteomyelitis. * 2. Plantar ulcer of the great toe with cellulitis. Associated deep tissue air may be secondary to direct communication from the wound versus necrotizing fasciitis. * Acute nondisplaced pathologic fracture of the first distal phalanx. Placed on Zosyn/Dapto -- continuing given coverage for DM foot ulcer in uncontrolled diabetic (BSG 374 yesterday on initial labs) If no concern for residual osteomyelitis: Given surgical cure, can transition to PO antibiotics to treat any residual skin/soft tissue infection. Discontinued pip-tazo and started cefuroxime 500 mg PO q12h to complete a 7 day course from amputation through 11/25/22. 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 Will monitor healing over next 2-3 weeks, if issues can consider arranging for angio. Continue ASA 81mg in meantime PT/OT consults to be obtained -- will place orders for today, NWB to L foot unless otherwise specified by Dr Jenkins -- to see this evening. Will need surgical shoe likely as well Heparin SQ for DVT prophylaxis added Return to OR on 11/22 for secondary closure (2) Uncontrolled type 2 diabetes mellitus with insulin therapy: Plan: Diabetic diet, A1c elevated 11.1. WIll consult DM educator as well. Pharmacy consulted for glycemic control -- BSGs much improved DM diet BSGs much improved and will continue to monitor. Rec'd to patient about better c ontrol to promote wound healing (3) Hypertension: Plan: benefit from adding low dose lisinopril given diabetes (however no protein noted on UA on admission) Monitoring for now, hydralazine available prn (4) Hyperlipidemia: Plan: holding crestor on Dapto, CK 195 baseline obtained Lipid panel obtained given arterial study as above but actually not bad -- > TRG 74, Chl 123, LDL 83, HDL 25 and will continue current dose crestor once off the dapto to prevent rhabdo Admission and Anticipated Discharge Date Admission Date: November 18, 2022 Subjective pt seen pre op doing well, anxious to go home, feels can help his follow up Physical Exam Physical Exam: cardiac is regular and lungs are clear foot is bandaged but cap refill is reasonable Results & Data Results & Data Vital Signs (Past 12 Hours) Vital Signs Temp Pulse Pulse Resp BP Pulse Ox O2 Del Method 11/22/22 16:00 77 11/22/22 12:18 98.2 F 71 16 121/75 98 Room Air 11/22/22 08:00 64 11/22/22 07:34 98.6 F 87 16 134/79 96 Room Air PG Care Time/CCT Total # of Minutes Spent Total Time Spent with Patient: Total time spent is greater than 50% in coordination of care (as documented) at patient's floor/unit and/or counseling patient: Coding Level of Care Code 18646 SUB INP/OBS CARE 2/35MIN Diagnoses Gangrenous toe I96 Uncontrolled type 2 diabetes mellitus with insulin therapy E11.65; Z79.4 Hypertension I10 Hyperlipidemia E78.5
--- NOTE | 2022-11-22 17:53 | Anesthesiology Progress Note ---
Date of Service November 22, 2022 Anesthesia Post Procedure Vital Signs Vital Signs: Temp Pulse Pulse Pulse Resp BP Pulse Ox 11/22/22 17:35 72 14 105/68 100 11/22/22 17:28 36.9 C 68 17 94/57 L 99 11/22/22 16:00 77 11/22/22 12:18 36.8 C 71 16 121/75 98 11/22/22 08:00 64 11/22/22 07:34 37.0 C 87 16 134/79 96 11/22/22 03:14 36.7 C 82 20 151/74 H 95 11/21/22 21:59 85 11/21/22 23:49 36.8 C 77 20 125/67 97 11/21/22 20:32 36.5 C 79 16 137/71 95 O2 Del Method O2 Flow Rate 11/22/22 17:35 Room Air 11/22/22 17:28 Oxymask 6 11/22/22 16:00 11/22/22 12:18 Room Air 11/22/22 08:00 11/22/22 07:34 Room Air 11/22/22 03:14 Room Air 11/21/22 21:59 11/21/22 23:49 Room Air 11/21/22 20:32 Room Air Pain Intensity Left Foot: Pain Intensity: 4 Transfer of Care Handoff Completed per policy Notes Mental Status: alert / awake / arousable Patient Amnestic to Procedure: Yes Nausea / Vomiting: adequately controlled Pain: adequately controlled Airway Patency, RR, SpO2: stable & adequate BP & HR: stable & adequate Hydration State: stable & adequate Anesthetic Complications: no major complications apparent
[2022-11-22] MEDS: LOPERAMIDE HCL 2 MG CAP PO PRN (19:45)
[2022-11-22] MEDS: ASPIRIN 81 MG ECTAB PO SCH (19:46)
[2022-11-22] MEDS: cefUROXime axetil 500 MG TAB PO SCH (19:46)
[2022-11-22] MEDS ORDERED: LANTUS PER UNIT CHARGE SC SCH (21:00)
[2022-11-23] MEDS: INSULIN ASPART PER UNIT CHARGE SC SCH (00:37)
[2022-11-23] MEDS: HEPARIN SOD 5,000 UNIT/0.5 ML VIAL SQ SCH (05:58)
[2022-11-23] MEDS: ACETAMINOPHEN 325 MG TAB PO PRN (06:02)
--- NOTE | 2022-11-23 07:01 | Operative Report ---
Post Operative Report Pre & Post Diagnosis Operation Date: 11/22/22 07:00 Pre-Op Diagnosis: GANGRENOUS TOE, CONCERNS FOR OSTEO Post-Op Diagnosis: GANGRENOUS TOE, CONCERNS FOR OSTEO I identified the patient and participated in the time-out.: Yes Procedure Operation Date: 11/22/22 07:00 Actual Procedures p Left Foot Secondary Closure of Wound(Left) - Gordon Ramirez DPM, MS Surgeon Gorodn Ramirez DPM, MS Labor Mediator None Estimated Blood Loss 0 Findings Consistent with Post-Op Diagnosis consistent with pre operative diagnosis Specimens None Description of Procedure History of present illness: Patient is a 62 year old male who is seen for delayed primary closure. Patient recently had left first ray resected, Incision and drainage left foot resulting from osteomyelitis and gangrene. Due to infection wound was not closed and left open. Soft tissue has now demarcated and infection has reduced. I have reviewed secondary closure. All questions answered. Discussed procedure in detail and postoperative recovery. All potential risks, benefits, complications, alternatives, rehab, potential for incomplete relief of symptoms, need for further surgery, DVT, PE, , persistent pain, swelling, scarring, weakness, neurovascular, wound complications and potential for amputations were discussed with patient. Unwanted outcomes such as, but not limited to were reviewed including under correction, overcorrection, return of deformity, infection. All questions were answered. Patient has decided to proceed with procedure as indicated. Preoperative diagnosis: Diabetic foot wound left Postoperative diagnosis: same Name of operation: 1.) Debridement of left foot wound 2.)Secondary closure of surgical wound extensive left foot Surgeon: Dr. Ramirez Labor Mediator: None Anesthesia: Monitored anesthesia care Hemostasis: pneumatic ankle tourniquet Estimated blood loss: minimal Procedure in detail: Under mild sedation the patient was brought in the operating room placed on the operating table in supine position. A pneumatic calf tourniquet was then placed about the patient's left calf. Following IV sedation the foot was prepped scrubbed and draped in usual aseptic manner. Attention was then directed to a large surgical deficit of the left foot. The first ray has been resected including an excised plantar diabetic foot wound. The wound measures 11 cm x 5 cm x 2.5 cm. The wound bed shows 30% necrotic or non viable tissue and is well demarcated. Utilizing a sharp, sterile, #15 blade the wound is voided of non viable soft tissue. Excision debridement is carried down to and including muscle and tendon to achieve a healthy wound bed. 1 L of Lactate ringer was then used to irrigated with into the wound under low flow. A plantar rotational skin plasty is utilized in order to gain coverage. At this time wound is closed in layers. Vertical mattress sutures are applied distal to wound as retention sutures utilizing 3-0 nylon. More proximal to wound edges vertical mattress sutures are applied. Finally wound edges are re- approximated using 3-0 nylon with simple suture technique. Upon completion of the procedure the lateral wound was dressed with sterile dressing consisting of 4 x 4's Vale Kerlix ABD. The Patient tolerated the procedure and anesthesia well. He was transferred to recovery room vital signs stable and vascular status intact all toes of the left foot following. Following a period of postoperative monitoring the patient will be readmitted to floor with the continuation of all preoperative orders. I attest to the content of the Intraoperative Record and any orders documented therein. Any exceptions are noted below.
[2022-11-23] MEDS ORDERED: INSULIN ASPART PER UNIT CHARGE SC SCH (07:30)
[2022-11-23] MEDS: lisinopril 5 MG TAB PO SCH (08:41)
[2022-11-23] MEDS: cefUROXime axetil 500 MG TAB PO SCH (08:42)
--- NOTE | 2022-11-23 17:10 | Discharge Summary ---
Date of Service November 23, 2022 Admission HPI Per Admitting Provider 62yo male with PMHx significant for uncontrolled DM (prior A1c 11.8--> 9.2 but over year since seen, A1c pending), HTN, HLD, reflux, melanoma presented with acute gangrenous LEFT great toe/diabetic ulceration to plantar aspect of foot ongoing for about a year. No reported fever/chills at home. Admission for IV abx/cultures and management, need for amputation. Evaluation with at bedside, just returning from CT scan of his leg for eval osteo. They report being at [facility] last year and not realizing how hot the sand was but took their shoes off and reports patient got instant blister that has not healed since that time. Reports there has been no drainage. Sensation to light touch intact to bottom of feet despite his uncontrolled diabetes. He reports not having much in the way of pain until he got up here to the hospital and wasn't having any of the redness currently on exam. Denies any recent trauma that he is aware of. Denied having any fevers at home but does have some chills at present/requesting warm blankets. He does have gangrenous 1st toe on the left on exam with lymphangitic streaking up to mid foot. Attempted to get pulse with doppler on the left, easily palpated on the right LE. Patient/ report RN was able to obtain after much searching previously. Discussed obtaining arterial study to ensure good blood flow but acute /possible need for intervention. He also has some calf pain on exam and discussed checking US doppler to ensure no DVT. Will plan to keep NPO until eval by Dr Ramirez this evening incase of surgery tonight. FULL CODE as discussed. ER Course: WBC elevation w/ neutrophil predominance on admission. Chemistries pending -- ER added CRP, ESR. Procal 0.48 Given Zosyn/Dapto by ER provider and images sent to podiatry, Dr Ramirez and will be evaluating this evening after CT imaging for consideration amputation. Xray imaging w/ Left first toe wound with soft tissue swelling. Although the gas may be related to the wound, the findings raise the possibility of a gas-forming infectious process such as necrotizing fasciitis. Possible erosion of the plantar aspect of the distal phalanx of the left first toe which raises the possibility of osteomyelitis. CT has been ordered for further evaluation. Blood cultures pending, CRP, ESR Lactic 2.1--> repeat to be collected after IVF. Principal Diagnosis Left great toe diabetic foot infection with osteomyelitis and gangrene status post amputation Discharge Exam Patient without complaints or problems surgical dressings in place patient will follow up Dr. Ramirez as an outpatient Discharge Data Allergies Allergy/AdvReac Type Severity Reaction Status Date / Time No Known Allergies Allergy Mild Verified 11/18/22 16:28 Consultations 11/18/22 15:21 Consult Podiatry Stat 11/18/22 15:27 ED Decision to Admit Stat 11/19/22 07:47 Consult Vascular Surgery Routine 11/20/22 08:00 Consult Infectious Diseases Routine Procedures Performed Operation Date: 11/22/22 07:00 Actual Procedures p Left Foot Secondary Closure of Wound(Left) - Gordon Ramirez DPM, MS Ordered Studies 11/18/22 15:15 CT foot LT w con Stat 11/18/22 15:50 US venous doppler LE LT Stat 11/18/22 16:21 US arterial duplex LE LT Stat Diabetes Follow up Diabetes Follow-up Needed for HgbA1c >9% Hospital Course (1) Gangrenous toe: concerns for sepsis secondary to osteo on admission, w/ gangrenous LEFT first toe/DM foot ulcer on admission CT foot 11/18/22 * 1. Osteonecrosis of the first proximal and distal phalanges with distal phalangeal osteomyelitis. * 2. Plantar ulcer of the great toe with cellulitis. Associated deep tissue air may be secondary to direct communication from the wound versus necrotizing fasciitis. * Acute nondisplaced pathologic fracture of the first distal phalanx. Placed on Zosyn/Dapto -- continuing given coverage for DM foot ulcer in uncontrolled diabetic (BSG 374 yesterday on initial labs) If no concern for residual osteomyelitis: Given surgical cure, can transition to PO antibiotics to treat any residual skin/soft tissue infection. Discontinued pip-tazo and started cefuroxime 500 mg PO q12h to complete a 7 day course from amputation through 11/25/22. 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 Will monitor healing over next 2-3 weeks, if issues can consider arranging for angio. Continue ASA 81mg in meantime Patient will be able to have heel weightbearing with a walker on occasional basis to get around his home we will follow-up with Dr. Ramirez for further recommendations as healing progresses (2) Uncontrolled type 2 diabetes mellitus with insulin therapy: Diabetic diet, A1c elevated 11.1. WIll consult DM educator as well. Pharmacy consulted for glycemic control -- BSGs much improved DM diet BSGs much improved and will continue to monitor. Rec'd to patient about better control to promote wound healing Encourage patient to have good compliance with diet patient voiced understanding and teach back moment (3) Hypertension: Added lisinopril 5 for antihypertensive and diabetic nephropathy protection (4) Hyperlipidemia: holding crestor on Dapto, CK 195 baseline obtained Lipid panel obtained given arterial study as above but actually not bad -- > TRG 74, Chl 123, LDL 83, HDL 25 and will continue current dose crestor once off the dapto to prevent rhabdo Total Time Total Time Spent Total Time Spent (In Minutes): It required greater than 30 minutes to prepare this patient for discharge Discharge Plan Discharge Items Patient Disposition: Home - Self-Care Reason For Visit: GANGRENOUS TOE, CONCERNS FOR OSTEO Discharge Diagnosis: gangrene left great toe amputation diabetes Activity: Resume your previous activity Non-emergency contact: Primary Care Provider Call non-emergency contact if: your symptoms worsen Follow-up/Referrals: Tamy Gaspar CRNP [Primary Care Provider] - 12/03/22 2:00 pm Diet: Carb Consistent or DM2 Addtl Attending Provider Instructions: Please follow up with DR Ramirez for post op care heel touch weigh bearing on your left foot Most importantly is the need to control your blood sugar, this will be with attention to your diet and resumption of your pre hospital diabetic treatment Pending Studies at Discharge: No Stand-Alone Forms: My [employer], Smoking Cessation Medications and DC Order Prescriptions: New lisinopril [Zestril] 5 mg Tablet 5 mg PO QAM Qty: 30 3RF cefuroxime axetil 500 mg Tablet 500 mg PO Q12H Qty: 6 0RF Continued Trulicity 1.5 mg/0.5 mL pen injector 1.5 mg SUBCUT .COMPLEX Qty: 12 3RF Rx Instructions: 1.5 mg subcut once weekly; saturdays insulin aspart U-100 [Novolog FlexPen U-100 Insulin] 100 unit/mL (3 mL) insulin pen 20 unit subcut .COMPLEX Qty: 18 3RF Rx Instructions: 20 units subcut Three times daily with meals Plus sliding scale; Tresiba FlexTouch U-200 200 unit/mL (3 mL) insulin pen 70 unit subcut HS Qty: 32 3RF metformin 500 mg tablet extended release 24 hr 1,000 mg PO BID Qty: 360 3RF rosuvastatin 20 mg tablet 20 mg PO HS Qty: 90 3RF (DME) pen needle, diabetic [BD Ultra-Fine Clau Pen Needle] 32 gauge x 5/32" needle See Dose Instructions .ROUTE .MEDSUPPLY Qty: 100 3RF Rx Instructions: Use four daily (DME) OneTouch Ultra Blue Test Strip Strip See Dose Instructions .ROUTE .MEDSUPPLY Qty: 10 Rx Instructions: Test blood sugars 3 times a day (DME) lancets [OneTouch UltraSoft Lancets] Misc See Dose Instructions .ROUTE .MEDSUPPLY Qty: 50 Rx Instructions: Test blood sugar 3 times a day cyanocobalamin (vitamin B-12) [Vitamin B-12] 2,000 mcg Tablet Extended Release 2,000 mcg PO QAM cholecalciferol (vitamin D3) [Vitamin D3] 2,000 unit Capsule 4,000 unit PO HS krill oil 1,210-645-91-80 mg Capsule 1 cap PO QAM aspirin 81 mg Tablet,Delayed Release (Dr/Ec) 81 mg PO QAM Discharge Orders: Discharge Order (Routine); Ordered 11/23/22 Ordered By: Migue West/Other Patient Handouts: Nutrition for Wound Healing, Managing Type 2 Diabetes, Special Foot Care for Diabetes Admission Data Admit Date/Time: 11/18/22 15:56 Attending Provider: Migue Myrick Admit Provider: Mu Perez Primary Care Provider: Tamy Gaspar Other Providers: Gordon Ramirez ; Mu Perez ; Corey Albarran ; Tamica Cade ; Israel Kent ; Ana Deluca ; Joana Villa ; Love Lu ; Christiana Pulido ; Amber Beck ; Jade Zamorano ; Yokasta Christopher Other Interventions: Discharge Summary Assessment (RN) Last Done: 11/23/22 11:06 Coding Level of Care Code 10924 INP/OBS DISCH >30 MIN Diagnoses Gangrenous toe I96 Uncontrolled type 2 diabetes mellitus with insulin therapy E11.65; Z79.4 Hypertension I10 Hyperlipidemia E78.5
--- NOTE | 2022-11-25 13:13 | Coding Query ---
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 Please assist us with the question(s) below: Coding Question(s): Acute Metabolic Encephalopathy is documented starting on the H&P and 11/18 Communication Note/Attending Addendum to H&P. It is not clear what is causing the Acute Metabolic Encephalopathy. Please specify below, in your clinical opinion, the cause(s) of the Acute Metabolic Encephalopathy: ( ) UTI ( ) Several sedating medications to treat her psychiatric disorder including Cogentin, Buspar, Clonazepam, Divalproex, Gabapentin, Quietapine ( ) Other: Please Specify Physician's Response(s): Thank you Nati Moore Principal Diagnosis: "that condition established after study, to be chiefly responsible for occasioning the admission of the patient to the hospital for care." Co-Existing Principal Diagnosis: "when two or more diagnoses equally meet the criteria for principal diagnosis as determined by the circumstances of admission, diagnostic work up, and/or therapy provided, and the Alphabetic Index, Tabular List, or another coding guideline does not provide sequencing direction, any one of the diagnoses may be sequenced first." "When the physician has documented what appears to be a current diagnosis in the body of the record, but has not included the diagnosis in the final diagnostic statement, the physician should be asked whether the diagnosis should be added." (Source [facility] 2 QTR90. p3-4) DOROTHY
== END 2022-11-23 12:40 | disposition home or self-care (01) | DRG 853 ==
LOC: ED 13:14 → 2N 17:30 → OR 17:30 → SUATTDRO 17:31 → 2N 17:31